=== PATIENT | male | born 1945 | race Caucasian/White ===

== ENCOUNTER 2022-06-04 00:12 | Inpatient (IN) | payer MEDICARE, BC, SELFPAY ==
[2022-06-04] VITALS (14 sets, daily range): BP systolic 97–128; BP diastolic 60–85; PULSE 53–78; RESP 12–20; TEMP 36.3–37; O2SAT 88–98; BMI 26.1; BMI 27.0
--- NOTE | 2022-06-04 00:27 | CRLHL7_ITS ---
For Patients: As a result of the Century Cures Act, medical imaging exams and procedure reports are released immediately into your electronic medical record. You may view this report before your referring provider. If you have questions, please contact your health care provider. INDICATION: Right lower quadrant pain TECHNIQUE: CT Abdomen and pelvis with i.v. contrast. Coronal and sagittal reformats were obtained. CONTRAST: 86 mL Isovue 370 COMPARISON: 08/01/2019, 02/25/2019 FINDINGS: Lower chest: Linear scarring in the left lower lobe is noted. Liver: Multiple liver cysts are present with the largest in the liver dome measuring 4 cm. There is an intermediate density exophytic lesion extending from the left lateral segment of the liver measuring 6.7 x 4.8 cm without interval change. This is better assessed by prior MRI 10/08/2020. Spleen: Unremarkable. Pancreas: Pancreatic ductal dilatation measuring 7 mm is noted without significant interval change. Gallbladder: Previous cholecystectomy noted with mild intra and extrahepatic biliary ductal dilatation seen. Kidney: There is a nonobstructing stone present in the lower pole of the right kidney measuring 11 mm. A cyst is present in the left renal upper pole measuring 1.3 cm. Adrenal: Unremarkable. Bowel: The patient is status post ileocecectomy. A fluid filled and patulous small bowel anastomosis seen in the right lower quadrant. Fluid-filled dilated small bowel loops is seen in the right lower quadrant measuring up to 3.8 cm in diameter. Vascular: Unremarkable. Lymph: Unremarkable. Peritoneum: Unremarkable. No pneumoperitoneum is seen. No significant ascites is noted. Pelvis: Mild enlargement of the prostate is present. Soft tissue: Unremarkable. Bone: Unremarkable for age. IMPRESSION: 1. Fluid-filled dilated small bowel loops is seen in the right lower quadrant measuring up to 3.8 cm in diameter. The appearance is similar to prior examination and may be due to ileus or partial small bowel obstruction. Dictated by Israel Stoner MD @ 06/04/2022 1:25:42 AM Please note that all CT scans at this facility use dose modulation, iterative reconstruction, and/or weight-based dosing when appropriate to reduce radiation dose to as low as reasonably achievable. Dictated by: Israel Stoner MD @ 06/04/2022 01:26:12 (Electronically Signed)
[2022-06-04] MEDS: diphenhydrAMINE 50 MG/ML inj 25 MG IVP (00:35)
[2022-06-04] MEDS: ONDANSETRON 2 MG/ML inj 4 MG IVP (00:37)
[2022-06-04] MEDS: HYDROmorphone 0.5 mg/0.5 ml inj IVP ×4 (00:39→05:08)
[2022-06-04 00:41] LABS: Creatinine, Point-of-Care* 1.4 mg/dl (0.6-1.3)
[2022-06-04 00:41] LABS: Lactate* 1.2 mmol/L (0.5-1.9)
[2022-06-04 00:42] LABS: Basophils Absolute Auto 0.02 K/uL (0.00-0.30); Basophils Percent Auto 0.3 % (0.0-3.0); Eosinophils Absolute Auto 0.16 K/uL (0.00-0.50); Eosinophils Percent Auto 2.3 % (0.0-7.0); Hematocrit 41.1 % (37.0-53.0); Hemoglobin* 14.4 gm/dL (13.5-17.5); Immature Granulocytes Abs Auto 0.01 K/uL (0.00-0.30); Immature Granulocytes Pct Auto 0.1 %; Lymphocytes Percent Auto 18.3 % (20-44); Mean Corpuscular HGB Conc 35 gm/dL (32-36); Mean Corpuscular Hemoglobin 34 pg (26-34); Mean Corpuscular Volume 96 fL (80-100); Monocytes Percent Auto 10.3 % (0.0-11.0); Neutrophils Absolute Auto 4.87 K/uL (1.7-7.0); Neutrophils Percent Auto 68.7 % (42.0-72.0); Platelet Count* 209 K/uL (140-440); RDW Coefficient of Variation % 12.3 % (11.5-15.5); Red Blood Count 4.28 m/uL (4.30-5.90); White Blood Count* 7.09 K/uL (4.50-11.00)
--- NOTE | 2022-06-04 00:42 | ED.GENADULT ---
HPI - General Adult General Date Seen: 06/04/22 Chief complaint: Abdominal Pain Stated complaint: small bowel obstruction rt side Time Seen by Provider: 06/04/22 00:15 Source: patient Mode of arrival: ambulatory Limitations: no limitations History of Present Illness HPI narrative: Patient is a 76-year-old male with underlying Crohn's disease with a history of bowel resection as well as surgery in 2015 for resection of adhesions. He presents for evaluation of sudden onset of right lower quadrant pain a couple of hours prior to presentation. He says that this feels exactly like all of his prior bowel obstructions which he says he has had too many to count. He does note that since 2014 he does not think that he has had any that have required admission, he says he is usually able to manage them at home with oral narcotics. However, tonight he says he took 7.5 mg of hydrocodone and it did not help. He has not had any vomiting. He denies urinary symptoms, fever, diarrhea, bloody stools. Related Data Home Medications Medication Instructions Recorded Confirmed duloxetine 20 mg capsule,delayed 20 mg PO DAILY 06/04/22 06/04/22 release finasteride 5 mg tablet 5 mg PO DAILY 06/04/22 06/04/22 gabapentin 300 mg capsule 300 mg PO DIRECTED 06/04/22 06/04/22 lisinopril 10 mg tablet 10 mg PO DAILY 06/04/22 06/04/22 tamsulosin 0.4 mg capsule 0.8 mg PO DAILY 06/04/22 06/04/22 Allergies Allergy/AdvReac Type Severity Reaction Status Date / Time No Known Drug Allergies Allergy Verified 06/04/22 00:18 Review of Systems Status of ROS: Reports: 6 or more systems reviewed and unremarkable except as noted in History and below [facility] Medical History (Updated 06/04/22 @ 01:49 by Arleth Fierro MD) Cervical myelopathy ?G95.9 - Disease of spinal cord, unspecified (ICD-10) Crohn's disease of jejunum ?K50.00 - Crohn's disease of small intestine without complications (ICD-10) Essential hypertension ?I10 - Essential (primary) hypertension (ICD-10) Foraminal stenosis of lumbar region ?M48.061 - Spinal stenosis, lumbar region without neurogenic claudication (ICD-10) Insomnia ?G47.00 - Insomnia, unspecified (ICD-10) Kidney stone ?N20.0 - Calculus of kidney (ICD-10) Lumbar facet arthropathy ?M47.816 - Spondylosis without myelopathy or radiculopathy, lumbar region (ICD-10) Neuropathy of lower extremity ?G57.90 - Unspecified mononeuropathy of unspecified lower limb (ICD-10) Neuropathy, peripheral ?G62.9 - Polyneuropathy, unspecified (ICD-10) SBO (small bowel obstruction) ?K56.609 - Unspecified intestinal obstruction, unspecified as to partial versus complete obstruction (ICD-10) Spinal stenosis in cervical region ?M48.02 - Spinal stenosis, cervical region (ICD-10) Stroke ?I63.9 - Cerebral infarction, unspecified (ICD-10) Supraglottic edema ?J38.4 - Edema of larynx (ICD-10) Vitamin D deficiency ?E55.9 - Vitamin D deficiency, unspecified (ICD-10) Surgical History History of bowel resection ?Z90.49 - Acquired absence of other specified parts of digestive tract (ICD-10) History of colonoscopy ?Z98.890 - Other specified postprocedural states (ICD-10) History of exploratory laparotomy ?Z98.890 - Other specified postprocedural states (ICD-10) History of foot surgery ?Z98.890 - Other specified postprocedural states (ICD-10) History of knee surgery ?Z98.890 - Other specified postprocedural states (ICD-10) History of laparoscopic cholecystectomy ?Z90.49 - Acquired absence of other specified parts of digestive tract (ICD-10) History of lithotripsy ?Z98.890 - Other specified postprocedural states (ICD-10) History of spinal surgery ?Z98.890 - Other specified postprocedural states (ICD-10) Social History Smoking Status: Never smoker Second hand tobacco smoke exposure: No How often do you have a drink containing alcohol: never How often do you have six or more drinks on one occasion: Never AUDIT-C Alcohol total score: 0 Non-prescribed substance use: denies use Exam Narrative: Exam Narrative: Vital signs as noted above. In general, an alert, Nontoxic male. He is holding his right lower quadrant. Head: Normocephalic, atraumatic. Eyes: Pupils are equal reactive. Extraocular movements are full. Conjunctivae are normal. ENT: Mucous membranes are moist. Neck: Supple without lymphadenopathy. Heart: Regular rate and rhythm. No murmur or rub. Lungs: Clear bilaterally. No increased work of breathing, crackles or wheezes. Abdomen: Soft and Nondistended. He has tenderness in the right lower quadrant without rebound guarding or rigidity. Extremities: Well perfused. No edema. No calf tenderness. Pulses intact. Neurologic: Patient is alert and oriented to person and place. Speech is fluent. Face is symmetric. Moves all extremities equally. Affect: Normal. Skin: Warm and dry. Well perfused. Const: Vital Signs, click to edit/add: Vital Signs - 24 hr 06/04/22 00:18 06/04/22 00:15 06/04/22 01:12 Temperature 97.3 F L Pulse Rate 53 L Pulse Rate [Pulse Oximeter] 78 Respiratory Rate 20 16 Blood Pressure 126/79 Blood Pressure [Ri ght Upper Arm] 97/60 Pulse Oximetry 98 96 95 Oxygen Delivery Me thod Room Air 06/04/22 01:47 06/04/22 01:14 06/04/22 01:31 Temperature 98.0 F Pulse Rate 66 72 Pulse Rate [Pulse Oximeter] 77 Respiratory Rate 16 16 16 Blood Pressure 122/78 124/77 Blood Pressure [Ri ght Upper Arm] 124/77 Pulse Oximetry 88 94 88 Oxygen Delivery Me thod Room Air Documenting provider has reviewed patient's vital signs: yes Course Course Hospital Course: Given his stated history, will place an IV in just order a CT scan to evaluate. Labs are pending at this time. Looking through his records, last time he was here he received Dilaudid as well as Benadryl because he apparently gets a rash. I have ordered 0.5 mg of Dilaudid as well as Benadryl and a L of normal saline. He did require an additional 0.5 mg of Dilaudid for pain control. CT scan by my review showed some dilated, fluid-filled small bowel loops particularly in the right lower quadrant as well as air-fluid levels. Radiology reads this as ileus or partial small-bowel obstruction. Labs are pretty unremarkable. White blood cell count is normal at 7, hemoglobin is 14.4. Electrolytes are normal, creatinine is 1.1, lactate is 1.2, LFTs are normal. He does have an elevated lipase of 76, looking back through his records his lipase is often elevated with bowel obstruction. COVID is negative. Plan at this point is admission for pain control and bowel rest overnight, he is hoping that he can go home tomorrow If symptoms are improved. Vital Signs Vital signs: Initial Vital Signs Pulse Oximetry 96 06/04/22 00:15 Vital Signs Pulse Oximetry 96 06/04/22 00:15 Temperature 98.0 F 06/04/22 01:47 Pulse Rate 77 06/04/22 01:47 Respiratory Rate 16 06/04/22 01:47 Blood Pressure 124/77 06/04/22 01:47 Pulse Oximetry 88 06/04/22 01:47 Oxygen Delivery Method Room Air 06/04/22 01:47 Medical Decision Making Lab Data Labs: Lab Results 06/04/22 06/04/22 06/04/22 Range/Units 00:03 00:40 00:45 WBC 7.09 (4.50-11.00) K/uL RBC 4.28 L (4.30-5.90) m/uL Hgb 14.4 (13.5-17.5) gm/dL Hct 41.1 (37.0-53.0) % MCV 96 (80-100) fL MCH 34 (26-34) pg MCHC 35 (32-36) gm/dL RDW Coeff of Enrique 12.3 (11.5-15.5) % Plt Count 209 (140-440) K/uL Neut % (Auto) 68.7 (42.0-72.0) % Lymph % (Auto) 18.3 L (20-44) % [place] % (Auto) 10.3 (0.0-11.0) % Eos % (Auto) 2.3 (0.0-7.0) % Baso % (Auto) 0.3 (0.0-3.0) % Neut # (Auto) 4.87 (1.7-7.0) K/uL Lymph # (Auto) 1.30 (0.90-2.90) K/uL [place] # (Auto) 0.70 (0.00-0.90) K/UL Eos # (Auto) 0.16 (0.00-0.50) K/uL Baso # (Auto) 0.02 (0.00-0.30) K/uL Sodium 136 (135-149) mmol/L Potassium 4.2 (3.6-5.1) mmol/L Chloride 103 (96-114) mmol/L Carbon Dioxide 25 (20-32) mmol/L BUN 23 (7-30) mg/dL Creatinine 1.1 (0.5-1.5) mg/dL Estimated Creat Clear 57.13 Estimated GFR 70 ml/min Glucose 104 (60-115) mg/dL Lactate 1.2 (0.5-1.9) mmol/L Calcium 9.0 (8.4-10.6) mg/dL Total Bilirubin 0.8 (0.1-1.5) mg/dL Direct Bilirubin 0.3 (0.0-0.5) mg/dL AST 29 (12-35) U/L ALT 26 (4-50) U/L Alkaline Phosphatase 80 (40-150) U/L C-Reactive Protein 0.5 (0.5-1.0) mg/dL Total Protein 7.0 (6.0-8.3) g/dL Albumin 4.5 (3.3-5.0) g/dL Lipase 786 H (23-300) U/L SARS-CoV-2 (PCR) Negative SARS-CoV-2 (Negative) POC Creatinine 1.4 H (0.6-1.3) mg/dl Discharge Plan Discharge Clinical Impression: Crohn's disease, Bowel obstruction Patient Disposition: Admitted As Inpatient Condition: Improved
[2022-06-04 00:47] LABS: Slide Review Reflex No
[2022-06-04 00:58] LABS: Albumin* 4.5 g/dL (3.3-5.0); Chloride* 103 mmol/L (96-114); Sodium* 136 mmol/L (135-149)
[2022-06-04 00:59] LABS: Potassium* 4.2 mmol/L (3.6-5.1)
[2022-06-04 01:00] LABS: Creatinine* 1.1 mg/dL (0.5-1.5); Est. Creatinine Clearance* 57.13; Estimated Glomerular Filt Rate 70 ml/min
[2022-06-04 01:01] LABS: Alkaline Phosphatase* 80 U/L (40-150); Aspartate Amino Transferase* 29 U/L (12-35); Bilirubin Direct* 0.3 mg/dL (0.0-0.5); Bilirubin Total* 0.8 mg/dL (0.1-1.5); Blood Urea Nitrogen* 23 mg/dL (7-30); Carbon Dioxide* 25 mmol/L (20-32)
[2022-06-04 01:02] LABS: Alanine Aminotransferase* 26 U/L (4-50); Glucose* 104 mg/dL (60-115); Lipase* 786 U/L (23-300)
[2022-06-04 01:04] LABS: C Reactive Protein* 0.5 mg/dL (0.5-1.0)
[2022-06-04] MEDS: 0.9 % SODIUM CHLORIDE 1000 ml 1,000 ML IV (01:07)
[2022-06-04 01:24] LABS: SARS PCR* Negative SARS-CoV-2 (Negative)
--- NOTE | 2022-06-04 03:06 | P.IMCN_ITS ---
Date of Consult Consult date: 06/04/22 Primary Care Provider: Hemal Hayward MD Consult Narrative Narrative: [facility] Hospitalist ADMISSION SUPPORT NOTE eHospitalist was contacted by Dr. Fierro with request of admission support. Chief complaint: Abdominal pain HPI: The patient presents with abdominal pain that started around 7 PM the evening. It felt like the typical pain he would have when he has had bowel obstruction in the past. He took a hydrocodone which she reports usually helps but his pain continues to worsen and was severe in intensity on arrival. He reports that the pain is mainly in the right upper abdomen under his rib cage, is crampy in nature and sometimes is in the epigastric region. He denies any nausea and vomiting. Pain is currently 1-2/10 intensity Home Medications: Reviewed see EMR for details Pertinent Medical History: Crohn's disease, hypertension, insomnia, neuropathy, bowel resection, please see EMR for details regarding past surgical history Review of Systems Status of ROS: Reports: 10 or more systems reviewed and unremarkable except as noted in History and below [facility] Medical History (Updated 06/04/22 @ 01:49 by Arleth Fierro MD) Cervical myelopathy ?G95.9 - Disease of spinal cord, unspecified (ICD-10) Crohn's disease of jejunum ?K50.00 - Crohn's disease of small intestine without complications (ICD-10) Essential hypertension ?I10 - Essential (primary) hypertension (ICD-10) Foraminal stenosis of lumbar region ?M48.061 - Spinal stenosis, lumbar region without neurogenic claudication (ICD-10) Insomnia ?G47.00 - Insomnia, unspecified (ICD-10) Kidney stone ?N20.0 - Calculus of kidney (ICD-10) Lumbar facet arthropathy ?M47.816 - Spondylosis without myelopathy or radiculopathy, lumbar region (ICD-10) Neuropathy of lower extremity ?G57.90 - Unspecified mononeuropathy of unspecified lower limb (ICD-10) Neuropathy, peripheral ?G62.9 - Polyneuropathy, unspecified (ICD-10) SBO (small bowel obstruction) ?K56.609 - Unspecified intestinal obstruction, unspecified as to partial versus complete obstruction (ICD-10) Spinal stenosis in cervical region ?M48.02 - Spinal stenosis, cervical region (ICD-10) Stroke ?I63.9 - Cerebral infarction, unspecified (ICD-10) Supraglottic edema ?J38.4 - Edema of larynx (ICD-10) Vitamin D deficiency ?E55.9 - Vitamin D deficiency, unspecified (ICD-10) Surgical History History of bowel resection ?Z90.49 - Acquired absence of other specified parts of digestive tract (ICD- 10) History of colonoscopy ?Z98.890 - Other specified postprocedural states (ICD-10) History of exploratory laparotomy ?Z98.890 - Other specified postprocedural states (ICD-10) History of foot surgery ?Z98.890 - Other specified postprocedural states (ICD-10) History of knee surgery ?Z98.890 - Other specified postprocedural states (ICD-10) History of laparoscopic cholecystectomy ?Z90.49 - Acquired absence of other specified parts of digestive tract (ICD- 10) History of lithotripsy ?Z98.890 - Other specified postprocedural states (ICD-10) History of spinal surgery ?Z98.890 - Other specified postprocedural states (ICD-10) Social History Smoking Status: Never smoker Second hand tobacco smoke exposure: No How often do you have a drink containing alcohol: never How often do you have six or more drinks on one occasion: Never AUDIT-C Alcohol total score: 0 Non-prescribed substance use: denies use Meds Home Medications and Allergies Home Medications Medication Instructions Recorded Confirmed Type duloxetine 20 mg capsule,delayed 20 mg PO DAILY 06/04/22 06/04/22 History release finasteride 5 mg tablet 5 mg PO DAILY 06/04/22 06/04/22 History gabapentin 300 mg capsule 300 mg PO DIRECTED 06/04/22 06/04/22 History lisinopril 10 mg tablet 10 mg PO DAILY 06/04/22 06/04/22 History tamsulosin 0.4 mg capsule 0.8 mg PO DAILY 06/04/22 06/04/22 History Allergies Allergy/AdvReac Type Severity Reaction Status Date / Time No Known Drug Allergies Allergy Verified 06/04/22 00:18 Exam Narrative: Exam Narrative: Pertinent Social History: Denies history of smoking or drugs of abuse or alcohol Exam (performed via interactive video with assistance of bedside nurse): General: Alert, cooperative, no acute distress HEENT: Oral mucosa pink and moist without erythema Lungs: Clear to auscultation bilaterally without crackle or wheeze CV: Regular rate and rhythm without loud murmur rub or gallop Abd: Bowel sounds absent, does exhibit with pain in right upper quadrant and epigastric region with palpation done by bedside nurse, soft Ext: No pitting edema noted Skin: No rashes, bruises or lesions appreciated on gross visualization of exposed skin Neuro: Alert, oriented x 3. CN III -VII, XI, XII grossly intact, moves all extremities without any significant focal deficit appreciated by nurse Const: Vital Signs, click to edit/add: Vital Signs - 24 hr 06/04/22 00:18 06/04/22 00:15 06/04/22 01:12 Temperature 97.3 F L Pulse Rate 53 L Pulse Rate [Pulse Oximeter] 78 Respiratory Rate 20 16 Blood Pressure 126/79 Blood Pressure [Ri ght Upper Arm] 97/60 Pulse Oximetry 98 96 95 Oxygen Delivery Me thod Room Air 06/04/22 01:47 06/04/22 01:14 06/04/22 01:31 Temperature 98.0 F Pulse Rate 66 72 Pulse Rate [Pulse Oximeter] 77 Respiratory Rate 16 16 16 Blood Pressure 122/78 124/77 Blood Pressure [Ri ght Upper Arm] 124/77 Pulse Oximetry 88 94 88 Oxygen Delivery Me thod Room Air 06/04/22 02:02 06/04/22 02:10 Temperature 98.1 F 98.1 F Pulse Rate 69 Pulse Rate [Pulse Oximeter] 77 Respiratory Rate 16 16 Blood Pressure 128/85 Blood Pressure [Ri ght Upper Arm] 124/77 Pulse Oximetry 92 Oxygen Delivery Me thod Labs Labs: Short CBC 06/04/22 Range/Units 00:03 WBC 7.09 (4.50-11.00) K/uL Hgb 14.4 (13.5-17.5) gm/dL Hct 41.1 (37.0-53.0) % Plt Count 209 (140-440) K/uL BMP 06/04/22 00:03 Sodium 136 Potassium 4.2 Chloride 103 Carbon Dioxide 25 BUN 23 Creatinine 1.1 Glucose 104 Calcium 9.0 Liver Function 06/04/22 Range/Units 00:03 Total Bilirubin 0.8 (0.1-1.5) mg/dL Direct Bilirubin 0.3 (0.0-0.5) mg/dL AST 29 (12-35) U/L ALT 26 (4-50) U/L Alkaline Phosphatase 80 (40-150) U/L Albumin 4.5 (3.3-5.0) g/dL Assessment and Plan Assessment and plan (1) Crohn's disease: Status: Acute (2) Bowel obstruction: Status: Acute Plan Recent lab/CT scan of abdomen and pelvis: Reviewed see EMR for details Assessment and Plan: 1. Abdominal pain-related to ileus versus partial small bowel obstruction. Supportive care. Keep NPO. IV fluids. Pain control with Dilaudid 2. Mild pancreatitis-with epigastric pain and elevated lipase. Continue to trend 3. BPH-continue finasteride and Flomax 4. Hypertension-stable on lisinopril 5. Neuropathy-stable on gabapentin and Cymbalta 6. DVT prophylaxis-Lovenox 7. CODE STATUS full code discussed with patient Chart review was performed as well as evaluation of the patient via video. Thank you for involving ehospitalist. Please contact [phone] if further assistance is needed.
[2022-06-04 05:07] LABS: Appearance Urine Clear (Clear); Bilirubin Urine Negative (Negative); Blood Urine Negative (Negative); Color Urine Yellow (Yellow); Glucose Urine Negative (Negative); Ketones Urine Negative (Negative); Leukocyte Esterase Urine Negative (Negative); Nitrite Urine Negative (Negative); Protein Urine Negative (Negative); Specific Gravity Urine 1.015 (1.000-1.030); Urobilinogen Urine 0.2 (0.2-1.0)
[2022-06-04] MEDS: 0.9 % SODIUM CHLORIDE 1000 ml 1,000 ML 125 ML IV (05:09)
[2022-06-04 05:14] LABS: RBC Urine 0-2 (0-2); Squamous Epithelial Cell Urine Few (None-Few); WBC Urine 0-2 (0-5)
--- NOTE | 2022-06-04 08:02 | PC.NURSE ---
Pt alert and oriented x3. Afebrile. Pt reports 10/10 sharp pain in abdomen that comes and goes, pain managed with PRN medications. Pt denies chest pain, SOB, and N/V. Pt is up Ind in room tolerating a NPO diet, voiding. Pt slept throughout most of night after arriving on unit at 0215. ??
[2022-06-04] MEDS: FINASTERIDE 5 MG TABLET PO (09:00)
[2022-06-04] MEDS: DULOXETINE HCL 20 MG CAPSULE DR PO (09:00)
[2022-06-04] MEDS: TAMSULOSIN HCL 0.4 MG CAPSULE 0.8 MG PO (09:01)
[2022-06-04] MEDS: lisinopriL 10 MG TABLET PO (09:01)
[2022-06-04] MEDS: GABAPENTIN 300 MG CAPSULE 600 MG PO ×3 (09:01→21:18)
[2022-06-04] MEDS: SODIUM CHLORIDE 0.9 % (FLUSH) 10 ML SYRINGE 5 ML IVF ×2 (09:04→21:20)
--- NOTE | 2022-06-04 11:34 | P.IMHP_ITS ---
Hospitalist- H&P: HPI History of Present Illness Date Seen: 06/04/22 Chief complaint: small bowel obstruction rt side Narrative: Osman Murray is a 76 year old male who presented to the emergency room last night for an acute onset of right lower quadrant abdominal cramping. He has a history of bowel obstructions, symptoms consistent with this. He had an apple with the skin on yesterday, which may have been a trigger. No vomiting, no other symptoms. Took an oxycodone at home without relief (typically, he can manage SBOs at home with oral pain medications and a bland diet). ER course and findings: - mildly elevated lipase at 786, normal lactate, CBC - partial SBO noted on CT A/B Patient admitted by ANGELINA -hospitalist overnight. This morning, his pain has improved. He feels like he will be able to pass flatus today. History updated below. Notably, Omsan was diagnosed with Crohn disease in the 1970s, underwent a partial small-bowel resection in 1971. He then remained fairly stable until approximately 2013, at which time he had multiple SBOs. He had surgery again in 2014 with lysis of adhesions and partial segmented small-bowel resection; notably pathology did not exhibit active Crohn's disease at that time. Patient is not currently immunosuppressed. PCP is Dr. Hayward locally. Review of Systems Status of ROS: Reports: 10 or more systems reviewed and unremarkable except as noted in History and below [facility] Medical History (Updated 06/04/22 @ 13:42 by Noreen Burrows MD) Cervical myelopathy ?G95.9 - Disease of spinal cord, unspecified (ICD-10) Crohn's disease of jejunum ?K50.00 - Crohn's disease of small intestine without complications (ICD-10) Essential hypertension ?I10 - Essential (primary) hypertension (ICD-10) Foraminal stenosis of lumbar region ?M48.061 - Spinal stenosis, lumbar region without neurogenic claudication (ICD-10) Insomnia ?G47.00 - Insomnia, unspecified (ICD-10) Kidney stone ?N20.0 - Calculus of kidney (ICD-10) Lumbar facet arthropathy ?M47.816 - Spondylosis without myelopathy or radiculopathy, lumbar region (ICD-10) Neuropathy of lower extremity ?G57.90 - Unspecified mononeuropathy of unspecified lower limb (ICD-10) Neuropathy, peripheral ?G62.9 - Polyneuropathy, unspecified (ICD-10) SBO (small bowel obstruction) ?K56.609 - Unspecified intestinal obstruction, unspecified as to partial versus complete obstruction (ICD-10) Spinal stenosis in cervical region ?M48.02 - Spinal stenosis, cervical region (ICD-10) Stroke ?I63.9 - Cerebral infarction, unspecified (ICD-10) Supraglottic edema ?J38.4 - Edema of larynx (ICD-10) Vitamin D deficiency ?E55.9 - Vitamin D deficiency, unspecified (ICD-10) Surgical History History of bowel resection ?Z90.49 - Acquired absence of other specified parts of digestive tract (ICD- 10) History of colonoscopy ?Z98.890 - Other specified postprocedural states (ICD-10) History of exploratory laparotomy ?Z98.890 - Other specified postprocedural states (ICD-10) History of foot surgery ?Z98.890 - Other specified postprocedural states (ICD-10) History of knee surgery ?Z98.890 - Other specified postprocedural states (ICD-10) History of laparoscopic cholecystectomy ?Z90.49 - Acquired absence of other specified parts of digestive tract (ICD- 10) History of lithotripsy ?Z98.890 - Other specified postprocedural states (ICD-10) History of spinal surgery ?Z98.890 - Other specified postprocedural states (ICD-10) Social History (Updated 06/04/22 @ 11:37 by Noreen Burrows MD) Narrative: Lives with Debi (medical decision maker if needed) on [address]. 3 adult children, 9 granddaughters. Retired (used car sales), mows at golf course now. Occasional cigar, rare ETOH use. Full Code status. Smoking Status: Light tobacco smoker What tobacco products do you use: cigars Do you use any of these nicotine containing products: None Second hand tobacco smoke exposure: No How often do you have a drink containing alcohol: monthly or less Alcohol type: beer How often do you have six or more drinks on one occasion: Never AUDIT-C Alcohol total score: 1 Non-prescribed substance use: denies use Caffeine: Yes (coffee) service: No Meds Home Medications and Allergies Home Medications Medication Instructions Recorded Confirmed Type cholestyramine (with sugar) 4 gram 1 ea PO BID 06/04/22 06/04/22 History powder for susp in a packet duloxetine 20 mg capsule,delayed 60 mg PO DAILY 06/04/22 06/04/22 History release finasteride 5 mg tablet 5 mg PO DAILY 06/04/22 06/04/22 History gabapentin 300 mg capsule 600 mg PO TID 06/04/22 06/04/22 History lisinopril 10 mg tablet 10 mg PO DAILY 06/04/22 06/04/22 History tamsulosin 0.4 mg capsule 0.8 mg PO DAILY 06/04/22 06/04/22 History Allergies Allergy/AdvReac Type Severity Reaction Status Date / Time No Known Drug Allergies Allergy Verified 06/04/22 00:18 Exam Narrative: Exam Narrative: GEN: Alert and oriented, sitting comfortably in bed and answering questions appropriately HEENT: Normal external ears, EOMIs bilaterally, no scleral icterus CV: RRR, No concerning murmurs, rubs, or gallops R: LCTA bilaterally without concerning wheezing, rales, or rhonchi Ab: Soft, no significant distension, tolerates palpation. Bowel sounds hypoactive Ext: wwp, no concerning edema Skin: No concerning skin lesions or rashes on exposed skin Neuro: Nonfocal Psych: Appropriate Const: Vital Signs, click to edit/add: Vital Signs - 24 hr 06/04/22 00:18 06/04/22 00:15 06/04/22 01:12 Temperature 97.3 F L Pulse Rate 53 L Pulse Rate [Pulse Oximeter] 78 Respiratory Rate 20 16 Blood Pressure 126/79 Blood Pressure [Le ft Arm] Blood Pressure [Ri ght Upper Arm] 97/60 Pulse Oximetry 98 96 95 Oxygen Delivery Me thod Room Air 06/04/22 01:47 06/04/22 01:14 06/04/22 01:31 Temperature 98.0 F Pulse Rate 66 72 Pulse Rate [Pulse Oximeter] 77 Respiratory Rate 16 16 16 Blood Pressure 122/78 124/77 Blood Pressure [Le ft Arm] Blood Pressure [Ri ght Upper Arm] 124/77 Pulse Oximetry 88 94 88 Oxygen Delivery Me thod Room Air 06/04/22 02:02 06/04/22 02:10 06/04/22 02:15 Temperature 98.1 F 98.1 F 97.6 F Pulse Rate 69 Pulse Rate [Pulse Oximeter] 77 69 Respiratory Rate 16 16 18 Blood Pressure 128/85 Blood Pressure [Le ft Arm] 123/76 Blood Pressure [Ri ght Upper Arm] 124/77 Pulse Oximetry 92 96 Oxygen Delivery Me thod Room Air 06/04/22 02:15 06/04/22 07:00 06/04/22 07:00 Temperature 98.6 F Pulse Rate Pulse Rate [Pulse Oximeter] 69 69 Respiratory Rate 16 12 12 Blood Pressure Blood Pressure [Le ft Arm] 112/72 Blood Pressure [Ri ght Upper Arm] Pulse Oximetry 96 93 Oxygen Delivery Me thod Room Air Room Air Hospitalist - H&P: Result Labs Labs: Short CBC 06/04/22 Range/Units 00:03 WBC 7.09 (4.50-11.00) K/uL Hgb 14.4 (13.5-17.5) gm/dL Hct 41.1 (37.0-53.0) % Plt Count 209 (140-440) K/uL BMP 06/04/22 00:03 Sodium 136 Potassium 4.2 Chloride 103 Carbon Dioxide 25 BUN 23 Creatinine 1.1 Glucose 104 Calcium 9.0 Liver Function 06/04/22 Range/Units 00:03 Total Bilirubin 0.8 (0.1-1.5) mg/dL Direct Bilirubin 0.3 (0.0-0.5) mg/dL AST 29 (12-35) U/L ALT 26 (4-50) U/L Alkaline Phosphatase 80 (40-150) U/L Albumin 4.5 (3.3-5.0) g/dL Urine 06/04/22 Range/Units 04:55 Urine Color Yellow (Yellow) Urine Appearance Clear (Clear) Urine pH 5.0 (5.0-8.5) Ur Specific [place] 1.015 (1.000-1.030) Urine Protein Negative (Negative) Urine Glucose (UA) Negative (Negative) Assessment and Plan Assessment and plan (1) Bowel obstruction: Problem comment: - history of SBOs - NPO, slowly advance diet when + GI motility Status: Acute (2) Crohn's disease: Problem comment: - history of this, no active disease on 2015 pathology - no concern for active disease at this time Status: Acute (3) Elevated lipase: Problem comment: - no signs of pancreatitis on imaging - NPO for now, ADAT when stable Status: Acute Plan - await bowel function, ADAT - add back in home medications - SCDs and ambulation for ppx - Full Code status - home with when medically stable, likely 1-2 days
[2022-06-04] MEDS: ENOXAPARIN 40 MG/0.4 ML INJ SUBCUT (21:17)
[2022-06-04] MEDS: DULOXETINE HCL 20 MG CAPSULE DR 40 MG PO (21:53)
[2022-06-05] MEDS: ACETAMINOPHEN 325 MG TABLET 650 MG PO ×2 (01:53→07:51)
--- NOTE | 2022-06-05 06:26 | PC.NURSE ---
END OF SHIFT NOTE: PT PLEASANT AND COOPERATIVE. A&O x4. PT DENIES CP, SOB, N/V. AMBULATES INDEPENDENTLY. VSS ON RA; AFEBRILE. PT C/O ?SINUS HEADACHE? / PAIN WITH RELIEF FROM ADMINISTRATION OF PRN TYLENOL. CALL LIGHT WITHIN PT?S REACH.
[2022-06-05 06:49] LABS: Basophils Absolute Auto 0.02 K/uL (0.00-0.30); Basophils Percent Auto 0.4 % (0.0-3.0); Eosinophils Absolute Auto 0.12 K/uL (0.00-0.50); Eosinophils Percent Auto 2.4 % (0.0-7.0); Hemoglobin* 13.3 gm/dL (13.5-17.5); Immature Granulocytes Abs Auto 0.01 K/uL (0.00-0.30); Immature Granulocytes Pct Auto 0.2 %; Lymphocytes Percent Auto 20.2 % (20-44); Mean Corpuscular HGB Conc 34 gm/dL (32-36); Mean Corpuscular Hemoglobin 33 pg (26-34); Mean Corpuscular Volume 98 fL (80-100); Neutrophils Percent Auto 62.8 % (42.0-72.0); Platelet Count* 176 K/uL (140-440); RDW Coefficient of Variation % 12.3 % (11.5-15.5); White Blood Count* 4.94 K/uL (4.50-11.00)
[2022-06-05 07:00] VITALS: BP 130/72; PULSE 65; RESP 16; TEMP 36.6; O2SAT 95
[2022-06-05 07:06] LABS: Albumin* 3.9 g/dL (3.3-5.0)
[2022-06-05 07:07] LABS: Chloride* 103 mmol/L (96-114); Potassium* 4.4 mmol/L (3.6-5.1); Sodium* 137 mmol/L (135-149)
[2022-06-05 07:09] LABS: Aspartate Amino Transferase* 44 U/L (12-35); Bilirubin Total* 1.4 mg/dL (0.1-1.5); Carbon Dioxide* 31 mmol/L (20-32); Creatinine* 1.1 mg/dL (0.5-1.5); Est. Creatinine Clearance* 57.13; Estimated Glomerular Filt Rate 70 ml/min; Total Protein* 6.2 g/dL (6.0-8.3)
[2022-06-05 07:10] LABS: Alanine Aminotransferase* 55 U/L (4-50); Alkaline Phosphatase* 89 U/L (40-150); Blood Urea Nitrogen* 16 mg/dL (7-30); Calcium* 8.6 mg/dL (8.4-10.6); Glucose* 95 mg/dL (60-115)
[2022-06-05 07:34] LABS: Slide Review Reflex No
[2022-06-05] MEDS: lisinopriL 10 MG TABLET PO (07:50)
[2022-06-05] MEDS: TAMSULOSIN HCL 0.4 MG CAPSULE 0.8 MG PO (07:51)
[2022-06-05] MEDS: GABAPENTIN 300 MG CAPSULE 600 MG PO (07:52)
[2022-06-05] MEDS: FINASTERIDE 5 MG TABLET PO (07:52)
--- NOTE | 2022-06-05 08:00 | PM.DS1 ---
DS: Providers Provider Date Seen: 06/05/22 Date of admission: 06/04/22 09:43 Primary care physician: Hemal Hayward MD Admitting Clinician: Kadeem Valdes MD Attending Physician on discharge: Noreen Burrows MD Date of Discharge: 06/05/22 DS: Diagnosis Discharge Diagnosis (1) Bowel obstruction: Status: Acute Problem details: - history of SBOs - advanced diet well and ready for discharge on hospital day 1 (2) Crohn's disease: Status: Acute Problem details: - history of this, no active disease on 2014 pathology - no concern for active disease at this time (3) Elevated lipase: Status: Acute Problem details: - no signs of pancreatitis on imaging - advanced diet without any pain DS: Summary Hospital Course Hospital Course: 76-year-old man with history of SBOs, previous abdominal surgery, history of Crohn's disease (not currently under treatment or immunosuppressed), presented to the hospital with abdominal pain concerning for recurrent SBO on 06/04. Imaging in the emergency room confirmed this. He was admitted to the hospital, treated with pain medication and NPO status, was able to advance diet throughout hospital stay and felt back to baseline on 06/05. No changes made to home medications, routine PCP follow-up. Discussed return precautions, patient verbalized understanding of plan. Status at Discharge Functional status at discharge: independent ambulation Overall status at discharge: patient is back to baseline Time Spent with Patient Time attestation: Total time spent providing and/or coordinating discharge services: Time spent: Less than 30 minutes Exam Narrative: Exam Narrative: GEN: Alert and oriented, answering questions appropriately HEENT: EOMIs bilaterally, no scleral icterus CV: RRR, No concerning murmurs, rubs, or gallops R: LCTA bilaterally without concerning wheezing Abdomen: Soft, tolerates palpation, normoactive bowel sounds Ext: wwp, no concerning edema Skin: No concerning skin lesions or rashes on exposed skin Neuro: Nonfocal Psych: Appropriate Const: Vital Signs, click to edit/add: Vital Signs - 24 hr 06/04/22 11:00 06/04/22 15:00 06/04/22 15:00 Temperature 98.2 F 98 F Pulse Rate [Pulse Oximeter] 68 73 73 Respiratory Rate 12 12 Blood Pressure [Le ft Arm] 113/74 110/65 Pulse Oximetry 92 95 Oxygen Delivery Me thod Room Air Room Air 06/04/22 19:50 06/04/22 19:50 06/04/22 23:23 Temperature 98.3 F Pulse Rate [Pulse Oximeter] 74 74 Respiratory Rate 16 16 16 Blood Pressure [Le ft Arm] 112/68 Pulse Oximetry 95 Oxygen Delivery Me thod Room Air Room Air DS: Data Data Completed and Pending Labs on day of discharge: Labs from last 24 hours 06/05/22 06:17 WBC 4.94 RBC 4.00 L Hgb 13.3 L Hct 39.0 MCV 98 MCH 33 MCHC 34 RDW Coeff of Enrique 12.3 Plt Count 176 Neut % (Auto) 62.8 Lymph % (Auto) 20.2 [facility] % (Auto) 14.0 H Eos % (Auto) 2.4 Baso % (Auto) 0.4 Neut # (Auto) 3.10 Lymph # (Auto) 1.00 [facility] # (Auto) 0.70 Eos # (Auto) 0.12 Baso # (Auto) 0.02 Sodium 137 Potassium 4.4 Chloride 103 Carbon Dioxide 31 BUN 16 Creatinine 1.1 Estimated Creat Clear 57.13 Estimated GFR 70 Glucose 95 Calcium 8.6 Total Bilirubin 1.4 AST 44 H ALT 55 H Alkaline Phosphatase 89 Total Protein 6.2 Albumin 3.9 Discharge Plan Discharge Disposition: Home, Self-Care Date of Admission: 06/04/22 09:43 Attending Provider on Discharge: Noreen Burrows Primary Care Provider: Hemal Hayward Condition: Improved Anticipated Discharge Date/Time: 06/05/22 09:00 Discharge Medications: New oxycodone 5 mg tablet 5 mg PO Q6H PRN (Reason: pain) Qty: 20 0RF Continued duloxetine 20 mg capsule,delayed release(DR/EC) 60 mg PO DAILY Patient Comments: take 3 tabs once a day by mouth gabapentin 300 mg capsule 600 mg PO TID Patient Comments: take 2 capsules three times a day and take 1 capsule at hs if needed finasteride 5 mg tablet 5 mg PO DAILY lisinopril 10 mg tablet 10 mg PO DAILY tamsulosin 0.4 mg capsule 0.8 mg PO DAILY Discontinued cholestyramine (with sugar) 4 gram powder in packet 1 ea PO BID Discharge Orders: Discharge Order (Routine); Ordered 06/05/22 Ordered By: Noreen Burrows Patient Education: Oxycodone, Rapid Release (By mouth), Bowel Obstruction (DC) Activity Level: Activity as Tolerated Discharge Diet: Regular Diet Detail: low fiber, advance as tolerated Follow Up Appointments: Hemal Hayward MD [Primary Care Provider] - (prn) Forms: [employer] Info Instructions
[2022-06-05 09:34] VITALS: BP 128/85; PULSE 69; RESP 16; TEMP 36.6
--- NOTE | 2022-06-05 10:10 | PC.NURSE ---
Pt evaluated by Dr. Burrows. AM meds provided with prn tylenol for mild c/o sinus headache. Pain secondary to SBO on right side has resolved. Pt states he is passing flatus and had another small stool this am. IV site discontinued, pt showered himself and performed ADLS w/o assistance. Tolerated 100% of regular bkfst w/o any c/o nausea. Abdomen is soft and non-tender with normoactive bowel sounds. Pt and Denisa verbalized understanding of d/c diagnosis, home meds, new RX at [facility] for oxycodone and sx of SBO to report urgently to physician. No f/up with Dr. Hayward scheduled, pt is to f/up prn. Ambulatory d/c to own home with personal belongings and Denisa as transportation.
== END 2022-06-05 10:08 | disposition home or self-care (01) | DRG 389 ==
LOC: ED 01:49 → MEDSURG 02:10
PROVIDERS: Family Medicine; Admitting Provider Internal Medicine; Emergency Provider Emergency Medicine; PCP Family Medicine; Visit Provider Internal Medicine
DX: K56.609 Unspecified intestinal obstruction, unspecified as to partial versus complete obstruction (principal); G95.9 Disease of spinal cord, unspecified; Z90.49 Acquired absence of other specified parts of digestive tract; Z87.19 Personal history of other diseases of the digestive system; I10 Essential (primary) hypertension; M48.061 Spinal stenosis, lumbar region without neurogenic claudication; G47.00 Insomnia, unspecified; G62.9 Polyneuropathy, unspecified; M48.02 Spinal stenosis, cervical region; Z86.73 Personal history of transient ischemic attack (TIA), and cerebral infarction without residual deficits; N40.0 Benign prostatic hyperplasia without lower urinary tract symptoms
CPT/HCPCS: 36415; 74177; 80048; 80053; 80076; 81001; 82565; 83605; 83690; 85025; 86140; 87635; 94761; 99284; 99285; A9270; J1170; J1200; J1650; J2405; J7030; Q9967

== ENCOUNTER 2023-04-28 07:30 | Outpatient (RCR) | payer MEDICARE, BC, SELFPAY | END 2023-04-28 08:38 | disposition home or self-care (01) | PROVIDERS: PCP Family Medicine; Visit Provider Family Medicine | DX: M47.816 Spondylosis without myelopathy or radiculopathy, lumbar region (principal); M54.50 Low back pain, unspecified; Z51.89 Encounter for other specified aftercare | CPT/HCPCS: 97110; 97140; 97162 ==

== ENCOUNTER 2023-10-03 16:02 | Emergency (ER) | payer MEDICARE, BC, SELFPAY ==
[2023-10-03 16:04] VITALS: BP 115/73; PULSE 80; RESP 16; TEMP 36.8; O2SAT 96; BMI 25.7
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
--- OUTSIDE RECORDS SUMMARY | 2023-10-03 16:28 | XMS_ITS | Data Portability ---
Author Organization [facility] Address [address] [place] [address] Care Team Providers Care Display Director Name Role Phone LILITEDENNIS Mcclure Primary Care Provider Assessment No assessment recorded. Plan of Treatment Reminders Order Date Submit Date Provider Last Modified By Organization Details Last Modified Time Details Appointments None recorded . Lab None recorded . Referral None recorded . Procedures None recorded . Surgeries None recorded . Imaging US, renal 2022 024 [email or web address] Not available 4 09:59:32 US, renal 2022 024 [email or web address] [facility], [address], [place], [address], 4 08:55:03 Medication Orders finaster mariposa 5 mg tablet [email or web address] [place] [address] [facility], [address] [place], [place], [id number], 3 11:53:08 sildenaf il 100 mg tablet 2022 023 [facility]1958, [address] [place], [place], [id number], 3 11:53:22 oxybutyn in chloride ER 10 mg tablet,e xtended release 24 hr 2022 023 [facility] #[facility]88, [address] [place], [place], [id number], 11:39:19 Patient TargetsNo targets recorded. Patient InstructionsNo instructions recorded. Reason for Referral None Reported. Results Created Date Observation Date Name Description Value Unit Range Abnormal Flag LastModifiedBy Organization Detail LastModifiedTime 08/23/19 23 08/21/2022 bladd er scan (PROC ) No observ ation record ed. Not Available 08/28/2022 13:53:43 04/21/19 24 04/21/2023 US, renal No observ ation record ed. [facility] [address], [place], [address], 06/06/2023 10:31:40 Result Notes None recorded. Procedures Surgical History Date Name Laterality Status Provider Name and Address Organization Details Recorded Time 01/22/20 Bladder Scan completed Mitch Haque MD [address] [place] [address],[address], [place], [address], [facility] 01/21/2023 11:38:02 08/22/19 23 UroCuff completed Johana Avitia null, [facility] 08/21/2022 12:44:05 08/22/19 23 Bladder Scan completed Johana Avitia null, [facility] 08/21/2022 12:42:55 05/20/19 18 Colonoscopy completed Annamarie June null, [facility] 05/22/2022 11:37:22 operation on spinal cord completed Annamarie June null, [facility] 05/22/2022 11:35:38 Cholecystectomy completed Annamarie June null, [facility] 05/22/2022 11:35:54 operation on intestine completed Annamarie June null, [facility] 05/22/2022 11:36:07 Imaging Results Imaging Date Name Status LastModified by Organiz ation Details LastModified Time 08/21/2022 bladder scan (PROC) completed Information not available 08/28/2022 13:53:43 04/21/2023 [facility] [address], [place], [address], 06/06/2023 10:31:40 Procedure Notes None recorded. Medical Equipment None Reported. Allergies No known drug allergies Medications Name Sig Start Date Stop Date Status Note LastModified by Organization Details LastModified Time oxybutynin chloride ER 10 mg tablet,exte nded release 24 hr Take 1 tablet every day by oral route. active Not Available Not Available No t Available sildenafil 100 mg tablet TAKE 1 TABLET BY MOUTH NEEDED active Not Available Not Available No t Available methocarbam ol 750 mg tablet 05/22 completed Not Available Not Available Not Available tamsulosin 0.4 mg capsule active Not Available Not Available Not Available lisinopril 10 mg tablet active Not Available Not Available Not Available gabapentin 300 mg capsule active Not Available Not Available Not Available finasteride 5 mg tablet TAKE 1 TABLET BY MOUTH EVERY DAY active Not Available Not Available No t Available oxycodone 5 mg tablet TAKE 1 TABLET BY MOUTH EVERY 6 HOURS NEEDED FOR PAIN 08/28 completed Not Available Not Available Not Available cholestyram ine (with sugar) 4 gram oral powder 08/28 completed Not Available Not Available Not Available cholestyram ine (with sugar) 4 gram powder for susp in a packet MIX 1 PACKET IN LIQUID THEN TAKE BY MOUTH ONCE DAILY active Not Available Not Available No t Available duloxetine 20 mg capsule,del ayed release active Not Available Not Available Not Available cholecalcif frederick (vitamin D3) 50 mcg (2,000 unit) capsule TAKE 2 CAPSULES BY MOUTH ONCE DAILY active Not Available Not Available No t Available Vitals Date Recorded Body height Body mass index (BMI) Body weight Provider Name and Address Organization Details Last Updated DateTime 05/22/2022 175.26 cm 26.5 kg/m2 34880.75 g Annamarie Garcia [facility] 05/22/2022 11:31:58 Date Recorded Body height Body mass index (BMI) Body weight Provider Name and Address Organization Details Last Updated DateTime 08/28/2022 175.26 cm 26.4 kg/m2 12349.[address] [facility] 08/28/2022 11:36:59 Date Recorded Body height Body mass index (BMI) Body weight Provider Name and Address Organization Details Last Updated DateTime 01/21/2023 175.26 cm 25.8 kg/m2 74854.66 g Mitch Haque MD [address] [place], [place] [address], [address], [facility] 01/21/2023 11:37:29 Social History Question Answer Notes LastModified by Organizat ion Details LastModified Time Tobacco Smoking Status Former Smoker Annamarie westfall, [facility] 05/22/2022 11:35:02 What Is Your Level Of Alcohol Consumption? Occasional [email or web address] Information not available 05/22/2022 How Many Times Per Week Do You Consume Alcohol? Less Than 1 Time Per Week Information not available 08/28/2022 What Is Your Level Of Caffeine Consumption? Moderate [email or web address] Information not available 05/22/2022 Are You Currently Employed? No Information not available 08/28/2022 When Did You Quit Smoking? 16+yearssincel nidia [email or web address] Information not available 05/22/2022 Recreational Drug Use No Information not available 08/28/2022 What Was The Date Of Your Most Recent Tobacco Screening? 01/21/2023 Information not available 01/21/2023 Have You Ever Been Counseled For Unhealthy Alcohol Use? No Information not available 08/28/2022 What Is Your Relationship Status? Information not available 08/28/2022 Do You Use Any Illicit Or Recreational Drugs? No [email or web address] Information not available 05/22/2022 Has Tobacco Cessation Counseling Been Provided? No [email or web address] Information not available 05/22/2022 How Many Years Have You Smoked Tobacco? 15 [email or web address] Information not available 05/22/2022 Do You Or Have You Ever Used Any Other Forms Of Tobacco Or Nicotine? No [email or web address] Information not available 05/22/2022 How Many Days In The Past Year Have You Consumed 5 Or More Drinks? 0 Information no t available 08/28/2022 Sex: Unknown Functional Status None recorded. Mental Status None recorded. Family History Relationship Description Onset Age of this Age Resolved Age Notes Mother Malignant tumor of ovary Medical History Condition Response Sexually Transmitted Infection N Diabetes N Other N Bleeding Disorder N High Blood Pressure Y Kidney Stones Y High Cholesterol N GERD/Acid Reflux N Heart Disease N Cancer N Depression N Lung Disease N Immunizations Vaccine Type Date Status Provider Name and Address Organization Details Recorded Time Influenza, adjuvanted, trivalent, PF 12/21/2017 completed Veda westfall, [facility] 12/04/2022 17:53:07 Influenza, adjuvanted, quadrivalent, PF [facility] 17:53:07 COVID-19, mRNA, LNP-S, PF, 30 mcg/0.3 mL dose 03/31/2020 [facility] 17:53:07 COVID-19, mRNA, LNP-S, PF, 30 mcg/0.3 mL dose 04/21/2020 [facility] 17:53:19 COVID-19, mRNA, LNP-S, PF, 30 mcg/0.3 mL dose, bear-sucrose 07/24/2021 [facility] 17:53:19 COVID-19, mRNA, LNP-S, bivalent, PF, 30 mcg/0.3 mL dose 05/14/2022 [facility] 17:53:19 pneumococcal polysaccharide [email or web address] 06/18/2011 [facility] 17:53:19 Tdap 07/10/2010 [facility]22 17:53:07 Tdap 11/19/2018 [facility] 17:53:19 Pneumococcal conjugate PCV 13 01/10/2016 [facility] 17:53:19 zoster live 11/23/2012 [facility] 17:53:19 Influenza, high-dose, trivalent, PF 10/11/2015 completed Veda westfall, [facility] 12/04/2022 17:53:07 Influenza, high-dose, trivalent, PF 11/12/2015 completed Veda westfall, [facility] 12/04/2022 17:53:07 Influenza, high-dose, trivalent, PF 11/19/2018 completed Veda westfall, [facility] 12/04/2022 17:53:07 Influenza, high-dose, trivalent, PF 11/24/2016 completed Veda westfall [facility] 12/04/2022 17:53:07 Influenza, split virus, trivalent, preservative 11/04/2011 completed Veda westfall, [facility] 12/04/2022 17:53:19 Influenza, split virus, trivalent, preservative 11/23/2012 completed Veda westfall [facility] 12/04/2022 17:53:07 Influenza, split virus, trivalent, PF 10/21/2019 completed Veda westfall [facility] 12/04/2022 17:53:07 COVID-19, mRNA, LNP-S, PF, 30 mcg/0.3 mL dose 12/14/2020 [facility] 17:53:19 Past Encounters Encounter ID Performer Location Encounter Start Date Encounter Closed Date Diagnosis/Indication Diagnosis SNOMED-CT Code [id number] MD LOGAN Sol_Rayna [address] [place] [id number] 05/22/2022 11:24:39 05/26/2022 13:58:15 Kidney stone 11928306 Crohn's disease 93750080 Slowing of urinary stream 73965557 [id number] MD Josue Sol [address] [place] [address] 08/21/2022 11:19:41 08/27/2022 09:39:28 Slowing of urinary stream 08552669 Kidney stone 93423848 Crohn's disease 08350620 [id number] MD Josue Sol [address] [place] [id number] 08/28/2022 11:30:01 09/03/2022 13:31:39 Kidney stone 45518605 Crohn's disease 01485527 Slowing of urinary stream 93531182 Urgent franco yuval to urinate 19199477 Nocturia 510786896 Increased frequency of urination 605374938 Primary er ectile dysfunction [id number] Mitch Haque MD [facility] [address] [place] [address] 01/21/2023 11:13:38 01/22/2023 13:22:18 Kidney stone 65671327 Crohn's disease 46688822 Slowing of urinary stream 29069548 Urgent franco yuval to urinate 21889544 Nocturia 871796754 Increased frequency of urination 822933444 Primary er ectile dysfunction 956736023 Health Concerns Section Related Observation LastModified by Organization Detai ls LastModified Time None Recorded Concern Status LastModified by Organization Details LastModified Time None Recorded Advance Directives Directive None Recorded Payers Encounter Date Sequence Insurance Name Policy Number Policy Velasquez Covered Member ID Velasquez Member ID Guarantor Name 05/22/2022 1 [employer] [id number] Osman D Trevor [id number] Osman D Trevor 08/21/2022 1 [place] [id number] Osman D Trevor [id number] Osman D Trevor 08/28/2022 1 [place] [id number] Osman D Trevor [id number] Osman D Trevor 01/21/2023 1 [place] [id number] Osman D Trevor [id number] Osman D Trevor Notes Date Note Type Note Provider Name and Address Organization Details Recorded Time 05/22/2022 text/html HPI Notes: Mr. Giulia bolivar is a very pleasant 75 yoM who is referred to me by his PCP, Surya CRANDALL, regarding ureteral calculus. Patient was being work up for diarrhea and abdominal discomfort so underwent a CT A/P which noted a large stone within his right ureter, therefore consultation placed. Patient has history of Crohn's disease and kidney stones. Previously saw my partner, Dr. Krishna in 2013 at which time his stone burden consisted of a 3 mm lower pole right kidney stone without evidence of obstruction. At current he reports some minor discomfort in his abdomen but manageable. He reports that his brother also has stones and underwent a ureteroscopy with stent. After hearing his reports he is hopeful for another option. 03/06/21 Here for f/u nephrolithiasis s/o ESWL 01/23/2021. Since his procedure he reports that he's been doing great. First day post-op he had blood in his urine. Second day he passed a large volume of stone material without difficult. Urination now back to normal. No pain. 06/05/21 Here for f/u nephrolithiasis s/o ESWL 01/23/2021. Has been feeling well. Underwent repeat CT to assess residual stone burden. 05/22/2022: Here for follow up history of nephrolithiasis in setting of Crohns disease. Patient underwent a CT A/P for my review and interpretation... there are no left-sided calculi. Within the right renal unit there is a 1 cm lower pole calculus without evidence of hydronephrosis or perinephric fat stranding. Patient also reports significant slowing of his stream. Mitch Haque MD [address], [place], [address], [facility] 05/22/2022 14:29:39 08/28/2022 text/html HPI Notes: Mr. Giulia bolivar is a very pleasant 77 yoM who is referred to me by his PCP, Surya CRANDALL, regarding ureteral calculus. Patient was being work up for diarrhea and abdominal discomfort so underwent a CT A/P which noted a large stone within his right ureter, therefore consultation placed. Patient has history of Crohn's disease and kidney stones. Previously saw my partner, Dr. Krishna in 2014 at which time his stone burden consisted of a 3 mm lower pole right kidney stone without evidence of obstruction. At current he reports some minor discomfort in his abdomen but manageable. He reports that his brother also has stones and underwent a ureteroscopy with stent. After hearing his reports he is hopeful for another option. 03/06/21 Here for f/u nephrolithiasis s/o ESWL 01/23/2021. Since his procedure he reports that he's been doing great. First day post-op he had blood in his urine. Second day he passed a large volume of stone material without difficult. Urination now back to normal. No pain. 06/05/21 Here for f/u nephrolithiasis s/o ESWL 01/23/2021. Has been feeling well. Underwent repeat CT to assess residual stone burden. 05/22/2022: Here for follow up history of nephrolithiasis in setting of Crohns disease. Patient underwent a CT A/P for my review and interpretation... there are no left-sided calculi. Within the right renal unit there is a 1 cm lower pole calculus without evidence of hydronephrosis or perinephric fat stranding. Patient also reports significant slowing of his stream. 08/28/2022: Here for follow up history of nephrolithiasis in setting of Crohns disease, nocturia, urinary urgency, and slowing of his urinary stream. He completed a UroCuff for my review which good and strong flow pattern with evidence of abdominal straining. 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 Mitch Haque MD [address] [place] [address],[address], [address], [facility] 08/28/2022 13:54:53 01/21/2023 text/html HPI Notes: Mr. Giulia bolivar is a very pleasant 77 yoM who is referred to me by his PCP, Surya CRANDALL, regarding ureteral calculus. Patient was being work up for diarrhea and abdominal discomfort so underwent a CT A/P which noted a large stone within his right ureter, therefore consultation placed. Patient has history of Crohn's disease and kidney stones. Previously saw my partner, Dr. Krishna in 2014 at which time his stone burden consisted of a 3 mm lower pole right kidney stone without evidence of obstruction. At current he reports some minor discomfort in his abdomen but manageable. He reports that his brother also has stones and underwent a ureteroscopy with stent. After hearing his reports he is hopeful for another option. 03/06/21 Here for f/u nephrolithiasis s/o ESWL 01/23/2021. Since his procedure he reports that he's been doing great. First day post-op he had blood in his urine. Second day he passed a large volume of stone material without difficult. Urination now back to normal. No pain. 06/05/21 Here for f/u nephrolithiasis s/o ESWL 01/23/2021. Has been feeling well. Underwent repeat CT to assess residual stone burden. 05/22/2022: Here for follow up history of nephrolithiasis in setting of Crohns disease. Patient underwent a CT A/P for my review and interpretation... there are no left-sided calculi. Within the right renal unit there is a 1 cm lower pole calculus without evidence of hydronephrosis or perinephric fat stranding. Patient also reports significant slowing of his stream. 08/28/2022: Here for follow up history of nephrolithiasis in setting of Crohns disease, nocturia, urinary urgency, and slowing of his urinary stream. He completed a UroCuff for my review which good and strong flow pattern with evidence of abdominal straining. 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 01/21/2023: Here for follow up history of nephrolithiasis in setting of Crohns disease, nocturia, urinary urgency, and slowing of his urinary stream. Trial of anticholinergic has significantly improved his urination. Mitch Haque MD [address] [facility] [address] [facility],[address], [place], [address], [facility] 01/21/2023 11:48:39
--- OUTSIDE RECORDS SUMMARY | 2023-10-03 16:28 | XMS_ITS | Clinical Summary ---
Author Organization [facility] Address [place], [place] [address] Care Team Providers Care Product Marketing Specialist Name Role Phone Sourav Anderson MD Unavailable [phone] Jerome Mccartney MD Unavailable [phone] VoHemal burdick MD Primary Care Provider + Allergies Active Allergy Reactions Criticality Noted Date Comments Hydromorphone Itching 02/29/2020 Works fine if benadryl given with it Medications Medication Sig Dispensed Refills Start Date End Date Status multivitamin (MVI) tablet Take 1 tablet by mouth once daily. 0 2 Active Alpha Lipoic Acid 200 mg tabIndications:Ne uropathy involving both lower extremities Take by mouth once daily. 0 6 Active acetaminophen (TYLENOL EXTRA STRGTH) 500 mg tabletIndications :S/P spinal surgery,Post-op pain Take 2 Tablets (1,000 mg) by mouth every 6 hours. Max acetaminophen dose: 4000mg in 24 hrs. 100 Tablet 1 Active cyanocobalamin (Vitamin B-12) 5,000 mcg sublingual tabletIndications :Idiopathic neuropathy,Periph eral polyneuropathy,Ne uropathy involving both lower extremities Place 1 Tablet (5,000 mcg) under the tongue once daily. 0 2 Active cholecalciferol (Vitamin D-3) 2,000 unit capsuleIndication s:Vitamin D deficiency Take 2 Capsules (4,000 units) by mouth once daily. 180 Capsule 3 3 Active Additional Information Patient taking differently:4,000 unit Oral DAILY,Takes 1 tablet daily, Reported on 03/17/2023 DULoxetine (CYMBALTA) 20 mg Delayed-release capsuleIndication s:Idiopathic neuropathy,Periph eral polyneuropathy,Ne uropathy involving both lower extremities TAKE 2 TO 3 CAPSULES AT BEDTIME 270 Capsule 3 4 Active lisinopriL (PRINIVIL; ZESTRIL) 10 mg tabletIndications :Essential hypertension Take 1 Tablet (10 mg) by mouth once daily. 90 Tablet 3 4 Active cholestyramine-dawkins crose 4 G (QUESTRAN) 4 gram packetIndications :SBO (small bowel obstruction) (HC),Crohn's disease of jejunum with complication (HC) Mix 1 Packet in liquid then take by mouth once daily. 90 Packet 3 4 Active oxybutynin XL (DITROPAN XL) 10 mg CR tabletIndications :S/P spinal surgery Take 1 Tablet (10 mg) by mouth once daily. 90 Tablet 3 4 Active tamsulosin (FLOMAX) 0.4 mg capsuleIndication s:Benign non-nodular prostatic hyperplasia with lower urinary tract symptoms TAKE 2 CAPSULES BY MOUTH ONE TIME DAILY AFTER A MEAL. 180 Capsule 2 4 Active gabapentin (NEURONTIN) 300 mg capsuleIndication s:Idiopathic neuropathy,Periph eral polyneuropathy,Ne uropathy involving both lower extremities TAKE 2 CAPSULES (600 MG) BY MOUTH THREE TIMES DAILY. 540 Capsule 1 4 Active gabapentin (NEURONTIN) 300 mg capsuleIndication s:Idiopathic neuropathy,Periph eral polyneuropathy,Ne uropathy involving both lower extremities Take 2 Capsules (600 mg) by mouth three times daily. 180 Capsule 3 4 09/21/19 24 Discontinued Active Problems Problem Noted Date Diagnosed Date Right kidney stone 01/07/2021 Cervical stenosis of spinal canal 06/19/2020 Spinal stenosis in cervical region 06/14/2020 Sensorineural hearing loss, bilateral 01/19/2017 History of cerebellar stroke 01/05/2017 Foraminal stenosis of lumbar region 05/17/2015 Benign non-nodular prostatic hyperplasia with lower urinary tract symptoms 04/19/2015 SBO (small bowel obstruction) 09/09/2014 Neck pain 09/09/2014 Hoarseness of voice 09/09/2014 Supraglottic edema 09/09/2014 Idiopathic neuropathy 09/09/2014 History of renal stone 09/09/2014 Neuropathy of lower extremity 01/17/2014 Painful Peripheral Neuropathy 01/12/2013 Vitamin D deficiency 01/12/2013 Family history of diabetes mellitus 06/29/2012 Lumbar facet arthropathy 06/09/2012 Insomnia, unspecified 06/18/2011 Crohn's disease of jejunum with complication 10/2011 Overview: Resection in 1972 Colonoscopy 06/2011 normal repeat in 5 years Colonoscopy 02/2017 erosion on ileocolonic anastomosis, no repeat colonoscopy Kidney stone 06/18/2011 Overview: 2001, 2013 Unspecified essential hypertension 06/18/2011 Resolved Problems Problem Noted Date Diagnosed Date Resolved Date Cervical myelopathy 05/14/2022 03/17/19 24 Lumbar radicular pain on the left 06/09/2012 05/20/2013 Lumbar disk bulges 06/09/2012 5 Neuropathy of lower extremity 06/18/2011 05/20/2013 Overview: Both feet Encounters Date Type Department Care Team Description 09/18/2023 Refill [facility] [address] [place] [address] Hemal Hayward MD Refill Request (Gabapentin) 07/28/2023 1:15 PM CDT Office Visit [facility] [address] [place] [address] Abdirashid Woodruff DPM Ulcer (Follow up-right 2nd toe) 07/28/2023 Travel 07/14/2023 2:00 PM CDT Office Visit [facility] [address] [place] [address] Abdirashid Woodruff DPM Ulcer (Follow up-right 2nd toe) 07/14/2023 Travel from Last 3 Months Immunizations Name Administration Dates Next Due COVID-19 vaccine (Eventpig-Bio NTech 30mcg/0.3mL) 12YO+ BIVALENT PF, MDV 05/14/2022 COVID-19 vaccine (Pfizer-Bio NTech 30mcg/0.3mL) 12YO+ GALO-SUCROSE PF, MDV 07/24/2021 COVID-19 vaccine (Eventpig-Bio NTech 30mcg/0.3mL) PF, MDV 04/21/2020,03/31/2020 Influenza, High-dose Inactivated 019,11/24/2016,11/12/2015,10/10 Influenza, High-dose Quadriv alent Inactivated 11/04/2022 Influenza, IIV3 (Age 6-35 mos) 10/21/2019 Influenza, IIV3 (Age >=3 years) 11/23/2012,11/03 Influenza, Inactivated AIIV4 (Age 65+ Years) Preserv Free 11/20/2020 Influenza, Inactivated IIV3 (Age 65+ Years) Preserv Free 12/21/2017 Pneumococcal Poly,23-Valent (Pneumovax) 06/18/2011 Pneumococcal conj 13-Valent (Prevnar 13) 01/10/2016 RSV, Recombinant ADJ Reconst ituted (Arexvy 120MCG/0.5mL) 11/04/2022 Tdap 11/19/2018,07/10/2010 Zoster (Zostavax-ZVL, live) 11/23/2012 Family History Medical History Relation Name Comments Other Brother 1 Down's d at 6 Hypertension Brother 2 Diabetes Brother 3 GI Disease Brother 4 Crohn's Other Brother 5 pneumonia d at 6 Cancer-prostate Father Diabetes Father Heart Disease Father CHF - at 86 Other Father COPD Cancer Mother ovarian at 81 Other Mother Alzheimer's Diabetes Other 3 paternal uncl es Diabetes Paternal Grandfather Diabetes Paternal Grandmother Other Sister Down's d at 12 Relation Name Status Comments Brother 1 Brother 2 Brother 3 Brother 4 Brother 5 Father Mother Other Paternal Grandfather Paternal Grandmother Sister Social History Tobacco Use Types Packs/Day Years Used Date Smoking Tobacco: Former Cigarettes 0 02/09/1969 - 02/09/1989 Smokeless Tobacco: Former Chew Quit: 1980 Tobacco Cessation:Counseling Given: Yes Comments:occasionally smokes cigar Alcohol Use Standard Drinks/Week Comments Yes 0 (1 standard drink = 0.6 oz pur e alcohol) rare/socially PHQ-2 Answer Date Recorded PHQ-2 TOTAL SCORE 0 03/17/2023 Social Connections Answer Date Recorded Frequency of Communication with Friends and Fami ly 0 06/01/2023 Alcohol Use Answer Date Recorded How often do you have a drink containing alcohol ? 1 03/06/2021 How many drinks containing a lcohol do you have on a typical day when you are drinking? 0 03/06/2021 How often do you have five or more drinks on one occasion? 0 03/06/2021 Financial Resource Strain Answer Date R ecorded Difficulty of Paying Living Expenses 3 06/01/2023 Difficulty of Paying Living Expenses Not on file 06/01/2023 Food Insecurity Answer Date Recorded Worried About Running Out of Food in the Last Ye ar 1 06/01/2023 Transportation Needs Answer Date Record ed Lack of Transportation (Medical) 1 06/01/2023 Housing Stability Answer Date Recorded Unable to Pay for Housing in the Last Year 1 06/01/2023 Sex and Gender Information Value Date Recorded Sex Assigned at Not on file Gender Identity Male 02/26/2020 12:32 PM BEAUTY CULTURIST Sexual Orientation Straight 02/26/2020 12 :32 PM BEAUTY CULTURIST Obstetrics History Last Filed Vital Signs Vital Sign Reading Time Taken Comments Blood Pressure 115/69 07/28/2023 1:09 PM CDT Pulse 58 07/28/2023 1:09 PM CDT Temperature 36.7 ??C (98 ??F) 03/17/2023 8:55 AM BEAUTY CULTURIST Respiratory Rate 18 03/06/2021 2:40 PM BEAUTY CULTURIST Oxygen Saturation 95% 07/28/2023 1:09 PM CDT Inhaled Oxygen Concentration - - Weight 81.2 kg (179 lb) 07/28/2023 1:09 PM CDT Height 172.5 cm (5' 7.9) 06/01/2023 2:20 PM CDT Body Mass Index 27.3 06/01/2023 2:20 PM CDT Plan of Treatment Upcoming Encounters Date Type Department Care Team (Late st Contact Info) Description 11/03/2023 3:45 PM CDT Office Visit [facility] [address] [place] [address] Abdirashid Woodruff DPM [address] [place] [address] Health Maintenance Due Date Last Done Comments Zoster (shingles) series for age 50+ (2 of 3) 01/18/2013 11/23/2012 COVID-19 vaccine series ( season) 2022 05/14/2022, 07/24/2021, 12/14/2020, Additional history exists Influenza for age 65+ 10/11/2023 11/04/2022 , 11/20/2020, 11/19/2018, Additional history exists Depression screening for age 12+ 03/17/2024 03/17/2023, 07/25/2021, 07/24/2021, Additional history exists Medicare Wellness for age 65+ 03/17/2024, 07/24/2021, 09/02/2018, Additional history exists BMI (ht and wt on same day) for age 18+ 05/31/2024 06/01/2023, 03/17/2023, 05/14/2022, Additional history exists Tetanus booster 11/19/2028 11/19/2018, 07/10/2010 Hepatitis C screening for ag e 18-79 Completed 01/10/2016 Pneumococcal series for age 65+ Completed 6, 06/18/2011 Tdap Completed 11/19/2018, 07/10/2010 Medical Devices Implanted Type Area Coin Machine Assembler Device Identifier Shelf Expiration Date Model / Serial / Lot [id number] 6bone Cerv 7mm 4 Deg [place] W/P Implanted:Qty: 1 on 06/19/2020 by Adrian Perera MD at [facility] Explanted:at [facility] (Quantity not on file) N/A: Spine Melrose Spine 01/16/2025 [id number] / [id number] / [id number] 3bone Cerv 7mm 4 Deg Jennifer W/P Implanted:Qty: 1 on 06/19/2020 by Adrian Perera MD at [facility] Explanted:at [facility] (Quantity not on file) N/A: Spine Melrose Spine 01/31/2025 [id number] / [id number] / [id number] 6bone Cerv 7mm 4 Deg Jennifer W/P Implanted:Qty: 1 on 06/19/2020 by Adrian Perera MD at [facility] Explanted:at [facility] (Quantity not on file) N/A: Spine Jennifer Spine 03/15/2025 [id number] / [id number] / [id number] one Matrix 1cc [place] Plus Paste Dbm Implanted:Qty: 1 on 06/19/2020 by Adrian Perera MD at [facility] Explanted:at [facility] (Quantity not on file) N/A: Spine Medtronic Spine/Ortho 11/02/2024 [id number] / [id number] / Plate [place] 3 Lvl 63mm Implanted:Qty: 1 on 06/19/2020 by Adrian Perera MD at [facility] N/A: Spine [id number] / / Description:PLATE OZARK 3 LV L 63MM Screw [place] 4.0 X 14 Implanted:Qty: 8 on 06/19/2020 by Adrian Perera MD at [facility] N/A: Spine [id number] / / Description:SCREW OZARK 4.0 X 14 Procedures Procedure Name Priority Date/Time Associated Diagnosis Comments ANTI HCV Routine 01/10/2016 3:13 PM BEAUTY CULTURIST Need for hepatitis C screening test from Last 3 Months or Most Recently Relevant to Health Maintenance Results * ANTI HCV [39248.2] (01/10/2016 3:13 PM BEAUTY CULTURIST) HEPATITIS C ANTIBODY Non-Reacti ve Non-Reacti ve 01/10/2016 10:04 PM BEAUTY CULTURIST [facility] Blood BLOOD SPECIMEN / Unknown Venipuncture / Unknown 01/10/2016 3:13 PM BEAUTY CULTURIST 01/10/2016 3:13 PM BEAUTY CULTURIST Narrative [facility] - 01/10/2016 10:04 PM BEAUTY CULTURIST Antibodies to HCV not detected; does not exclude the possibility of exposure to HCV. Travis Hyde MD SEND OUTS [facility] [address] [place] [address], from Last 3 Months or Most Recently Relevant to Health Maintenance Advance Directives * Full Code (Latest Code Status on File) Date Activated Date Inactivated Comments 06/19/2020 5:20 PM 06/21/2020 2:27 PM Question Answer Comments Code Status Discussion: Not Discussed * Full Code Date Activated Date Inactivated Comments 09/09/2014 4:21 PM 09/12/2014 2:13 PM Question Answer Comments Code Status Discussion: Discussed Care Teams Product Marketing Specialist Relationship Specialty Start Date End Date VoteHemal bowles MD [address] [place] [address] PCP - General Family Practice 06/23/22 Sourav Anderson MD [address] [place] [address] Sports Medicine 06/29/12 Jerome Mccartney MD [address] [facility] [place] [address] Gastroenterology 06/29/12
== END 2023-10-03 16:50 | disposition home or self-care (01) ==
LOC: ED 16:26
PROVIDERS: Emergency Provider Family Medicine; PCP Family Medicine
DX: S61.412A Laceration without foreign body of left hand, initial encounter (principal); W23.0XXA Caught, crushed, jammed, or pinched between moving objects, initial encounter
CPT/HCPCS: 12001; 99283; 99284

== ENCOUNTER 2024-05-06 15:27 | Emergency (ER) | payer MEDICARE, BC, SELFPAY ==
--- OUTSIDE RECORDS SUMMARY | 2024-05-06 15:30 | XMS_ITS | Clinical Summary ---
Author Organization [email or web address] [facility] Address [address] [place] [address] Care Team Providers Care Rheumatology Specialist Name Role Phone Sourav Anderson MD Unavailable [phone] GadekJerome MD Unavailable [phone] VoteHemal bowles MD Primary Care Provider + Allergies Active Allergy Reactions Criticality Noted Date Comments Hydromorphone Itching 02/29/2020 Works fine if benadryl given with it Medications multivitamin (MVI) tablet Take 1 tablet by mouth once daily. 0 06/18/19 12 Active Alpha Lipoic Acid 200 mg tabIndications:N europathy involving both lower extremities Take by mouth once daily. 0 01/10/20 16 Active acetaminophen (TYLENOL EXTRA STRGTH) 500 mg tabletIndication s:S/P spinal surgery,Post-op pain Take 2 Tablets (1,000 mg) by mouth every 6 hours. Max acetaminophen dose: 4000mg in 24 hrs. 100 Tablet 06/26/19 21 Active cyanocobalamin (Vitamin B-12) 5,000 mcg sublingual tabletIndication s:Idiopathic neuropathy,Perip heral polyneuropathy,N europathy involving both lower extremities Place 1 Tablet (5,000 mcg) under the tongue once daily. 0 07/25/19 22 Active cholecalciferol (Vitamin D-3) 2,000 unit capsuleIndicatio ns:Vitamin D deficiency Take 2 Capsules (4,000 units) by mouth once daily. 180 Capsule 3 08/07/19 23 Active Additional Information Patient taking differently:4,000 unit Oral DAILY,Takes 1 tablet daily, Reported on 03/24/2024 oxybutynin XL (DITROPAN XL) 10 mg CR tabletIndication s:S/P spinal surgery Take 1 Tablet (10 mg) by mouth once daily. 90 Tablet 3 03/24/19 25 Active lisinopriL (PRINIVIL; ZESTRIL) 10 mg tabletIndication s:Essential hypertension Take 1 Tablet (10 mg) by mouth once daily. 90 Tablet 3 03/24/19 25 Active DULoxetine (CYMBALTA) 20 mg Delayed-release capsuleIndicatio ns:Idiopathic neuropathy,Perip heral polyneuropathy,N europathy involving both lower extremities TAKE 2 CAPSULES AT BEDTIME 180 Capsule 3 03/24/19 25 Active cholestyramine-s ucrose 4 G per scoop (QUESTRAN) 4 gram powderIndication s:Crohn's disease of jejunum with complication (HC) Mix 1 Packet in liquid then take by mouth once daily. 378 g 3 03/24/19 25 Active tamsulosin 0.4 mg capsuleIndicatio ns:Benign non-nodular prostatic hyperplasia with lower urinary tract symptoms TAKE 2 CAPSULES BY MOUTH ONE TIME DAILY AFTER A MEAL. 180 Capsule 3 03/24/19 25 Active gabapentin (NEURONTIN) 300 mg capsuleIndicatio ns:Idiopathic neuropathy,Perip heral polyneuropathy,N europathy involving both lower extremities Take 2 Capsules (600 mg) by mouth three times daily. 540 Capsule 1 03/24/19 25 Active Active Problems Problem Noted Date Diagnosed Date [...] Crohn's disease of jejunum with complication 10/2011 Overview (02/12/2017): Resection in 1972 Colonoscopy 06/2011 normal repeat in 5 years Colonoscopy 02/2017 erosion on ileocolonic anastomosis, no repeat colonoscopy Kidney stone 06/18/2011 Overview (07/28/2013): 2013 Unspecified essential hypertension 06/18/2011 Resolved Problems Problem Noted Date Diagnosed Date Resolved Date Cervical myelopathy 05/14/2022 03/17/19 24 Lumbar radicular pain on the left 06/09/2012 05/20/2013 Lumbar disk bulges 06/09/2012 5 Neuropathy of lower extremity 06/18/2011 05/20/2013 Overview (06/18/2011): Both feet Encounters Date Type Department Care Team Description 03/24/2024 10:50 AM TANK CAR MECHANIC Office Visit [facility] [address] [place] [address] Hemal Hayward MD Medication Management; Immunization/Injectio n 03/24/2024 Travel 03/22/2024 Telephone [facility] [address] [place] [address] Hemal Hayward MD Medication Management from Last 3 Months Immunizations Immunization Administration Dates Next Due COVID-19 vaccine (Pfizer-Bio NTech 30mcg/0.3mL) 12YO+ BIVALENT PF, MDV 05/14/2022 COVID-19 vaccine (LogRhythm-Bio NTech 30mcg/0.3mL) 12YO+ GALO-SUCROSE PF, MDV 07/24/2021 COVID-19 vaccine (LogRhythm-Bio NTech 30mcg/0.3mL) PF, MDV 04/21/2020,03/31/2020 Influenza, High-dose Inactivated 019,11/24/2016,11/12/2015,10/10 Influenza, High-dose Quadriv alent Inactivated 11/04/2022 Influenza, IIV3 (Age 6-35 mos) 10/21/2019 Influenza, IIV3 (Age >=3 years) 11/23/2012,11/03 Influenza, Inactivated AIIV4 (Age 65+ Years) Preserv Free 11/20/2020 Influenza, Inactivated IIV3 (Age 65+ Years) Preserv Free 03/24/2024,12/21/2017 Pneumococcal Poly,23-Valent (Pneumovax) 06/18/2011 Pneumococcal conj 13-Valent [...] Answer Date Recorded PHQ-2 TOTAL SCORE 0 03/24/2024 Social Connections Answer Date Recorded Do you often feel lonely or isolated from those around you? 0 06/01/2023 Alcohol Use Answer Date Recorded [...] file 06/01/2023 Food Insecurity Answer Date Recorded Do you worry your food will run out before you are able to buy more? 1 06/01/2023 Transportation Needs Answer Date Record ed Does lack of transportation keep you from medica l appointments? 1 06/01/2023 Does lack of transportation keep you from work, meetings or getting things that you need? 1 06/01/2023 Housing Stability Answer Date Recorded What is your housing situation today? 1 06/01/2023 Utilities Answer Date Recorded Do you have trouble paying f or utilities (for example, heat, electricity, water, phone)? 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 file Not on file Not on file Obstetrics History Last Filed Vital Signs Vital Sign Reading Time Taken Comments Blood Pressure 98/64 03/24/2024 11:03 AM TANK CAR ME[employer]IC Pulse 68 03/24/2024 11:03 AM TANK CAR ME[employer]IC Temperature 36.7 C (98 F) 03/17/2023 8:55 AM TANK CAR ME[employer]IC Respiratory Rate 18 03/06/2021 2:40 PM [employer]ANK CAR MECH[employer]IC Oxygen Saturation 98% 03/24/2024 11: 03 AM [employer]ANK CAR ME[employer]IC Inhaled Oxygen Concentration - - Weight 83.9 kg (184 lb 14.4 oz) 025 11:03 AM TANK CAR MECHANIC Height 172.5 cm (5' 7.9) 03/24/2024 11 :03 AM TANK CAR MECH[employer]IC Body Mass Index 28.2 03/24/2024 11:03 AM TANK CAR MECH[employer]IC Plan of Treatment Health Maintenance Due Date Last Done Comments Zoster (shingles) series for age 50+ (2 of 3) 01/18/2013 11/23/2012 COVID-19 vaccine series ( season) 2023 05/14/2022, 07/24/2021, 12/14/2020, Additional history exists Medicare Wellness for age 65+ 03/17/2024, 07/24/2021, 09/02/2018, Additional history exists BMI (ht and wt on same day) for age 18+ 03/24/2025 03/24/2024, 06/01/2023, 03/17/2023, Additional history exists Depression screening for age 12+ 03/24/2025 03/24/2024, 03/17/2023, 07/25/2021, Additional history exists Tetanus booster 11/19/2028 11/19/2018, 07/10/2010 Hepatitis C screening for ag e 18-79 Completed 01/10/2016 Pneumococcal series for age 50+ Completed 6, 06/18/2011 Tdap Completed 11/19/2018, 07/10/2010 RSV vaccine for adults or Completed 11/04/2022 Influenza Vaccine Completed 03/24/2024, , 10/21/2019, Additional history exists Medical Devices Implanted Type Area Recycler Forklift Driver Truck Driver Device Identifier Shelf Expiration Date Model / Serial / Lot [id number] 6bone Cerv 7mm 4 Deg Sherrill W/P Implanted:Qty: 1 on 06/19/2020 by Adrian Perera MD at [facility] Explanted:at [facility] (Quantity not on file) N/A: Spine Jennifer Spine 01/16/2025 [id number] / [id number] / [id number] 3bone Cerv 7mm 4 Deg Sherrill W/P Implanted:Qty: 1 on 06/19/2020 by Adrian Perera MD at [facility] Explanted:at [facility] (Quantity not on file) N/A: Spine Sherrill Spine 01/31/2025 [id number] / [id number] / [id number] 6bone Cerv 7mm 4 Deg Sherrill W/P Implanted:Qty: 1 on 06/19/2020 by Adrian Perera MD at [facility] Explanted:at [facility] (Quantity not on file) N/A: Spine Jennifer Spine 03/15/2025 [id number] / [id number] / [id number] one Matrix 1cc Rush Plus Paste Dbm Implanted:Qty: 1 on 06/19/2020 by Adrian Perera MD at [facility] Explanted:at [facility] (Quantity not on file) N/A: Spine Medtronic Spine/Ortho 11/02/2024 [id number] / [id number] / Plate Gonzales 3 Lvl 63mm Implanted:Qty: 1 on 06/19/2020 by Adrian Perera MD at [facility] N/A: Spine [id number] / / Description:PLATE OZARK 3 LV L 63MM Screw Gonzales 4.0 X 14 Implanted:Qty: 8 on 06/19/2020 by Adrian Perera MD at [facility] N/A: Spine [id number] / / Description:SCREW OZARK 4.0 X 14 Procedures Procedure Name Priority Date/Time Associated Diagnosis Comments CBC WITH AUTO DIFFERENTIAL Routine 03/24/2024 12:12 PM [employer] CAR [employer]IC Idiopathic neuropathy BASIC METABOLIC PANEL Routine 03/24/2024 12:12 PM [employer]ANK CAR [employer]IC Unspecified essential hypertension ALT (SGPT) Routine 03/24/2024 12:12 PM [employer]ANK CAR [employer]IC Screening cholesterol level LIPID PANEL W REFLEX MEASURED LDL Routine 03/24/2024 12:12 PM TANK CAR ME[employer]IC Screening cholesterol level VITAMIN D 25 (DEFICIENCY) Routine 03/24/2024 12:12 PM [employer]ANK CAR [employer]IC Vitamin D deficiency PSA TOTAL Routine 03/24/2024 12:12 PM [employer] CAR [employer]IC Screening PSA (prostate specific antigen) ANTI HCV Routine 01/10/2016 3:13 PM TANK CAR ME[employer]IC Need for hepatitis C screening test from Last 3 Months or Most Recently Relevant to Health Maintenance Results * (ABNORMAL) LIPID PANEL W REFLEX MEASURED LDL (03/24/2024 12:12 PM TANK CAR MECHANIC) CHOLESTEROL, TOTAL 174 <200 mg/dL [facility] HDL CHOLESTEROL 38(L) > OR = 40 mg/dL [facility] TRIGLYCERIDES 195(H) <150 mg/dL [facility] LDL-CHOLESTEROL 105(H) mg/dL (calc) [facility] Comment: Reference range: <100 Desirable range <100 mg/dL for primary prevention; <70 mg/dL for patients with CHD or diabetic patients with > or = 2 CHD risk factors. LDL-C is now calculated using the Rocio calculation, which is a validated novel method providing better accuracy than the Friedewald equation in the estimation of LDL-C. Jerome BRAR et al. MECHELLE. 2013;310(19): 0188-7099 (http://education.[employer]/faq/UVM231) CHOL/HDLC RATIO 4.6 <5.0 (calc) [facility] NON HDL CHOLESTEROL 136(H) <130 mg/dL (calc) [facility] Comment: For patients with diabetes plus 1 major ASCVD risk factor, treating to a non-HDL-C goal of <100 mg/dL (LDL-C of <70 mg/dL) is considered a therapeutic option. Blood BLOOD SPECIMEN / Unknown 03/24/2024 12:12 PM TANK CAR MECHANIC 03/24/2024 12:13 PM TANK CAR MECH[employer]IC Hemal Hayward MD CHEMISTRY Final Re sult [facility] [address] [place] [address], [facility] [address] [place] [address] * VITAMIN D 25 (DEFICIENCY) (03/24/2024 12:12 PM TANK CAR MECHANIC) VITAMIN D,25-OH,TOTAL,IA 37 30 - 100 ng/mL [facility] Comment: Vitamin D Status 25-OH Vitamin D: Deficiency: <20 ng/mL Insufficiency: 20 - 29 ng/mL Optimal: > or = 30 ng/mL For 25-OH Vitamin D testing on patients on D2-supplementation and patients for whom quantitation of D2 and D3 fractions is required, the [facility](TM) 25-OH VIT D, (D2,D3), LC/MS/MS is recommended: order code 43480 (patients >2yrs). See Note 1 Note 1 For additional information, please refer to http://education.[employer]/faq/MCK972 (This link is being provided for informational/ educational purposes only.) Blood BLOOD SPECIMEN / Unknown 03/24/2024 12:12 PM TANK CAR MECHANIC 03/24/2024 12:13 PM TANK CAR MECH[employer]IC Hemal Hayward MD SEND OUTS Final Re sult [facility] [address] [place] [address], [facility] [address] [place] [address] * (ABNORMAL) CBC AND DIFFERENTIAL (03/24/2024 12:12 PM TANK CAR MECHANIC) Pathologist [facility] WHITE BLOOD CELL COUNT 5.8 3.8 - 10.8 Thousand/u L [facility] RED BLOOD CELL COUNT 4.58 4.20 - 5.80 Million/uL [facility] HEMOGLOBIN 15.3 13.2 - 17.1 g/dL [facility] HEMATOCRIT 44.1 38.5 - 50.0 % [facility] MCV 96.3 80.0 - 100.0 fL [facility] MCH 33.4(H) 27.0 - 33.0 pg [facility] MCHC 34.7 32.0 - 36.0 g/dL [facility] Comment: For adults, a slight decrease in the calculated MCHC value (in the range of 30 to 32 g/dL) is most likely not clinically significant; however, it should be interpreted with caution in correlation with other red cell parameters and the patient's clinical condition. RDW 12.7 11.0 - 15.0 % [facility] PLATELET COUNT 214 140 - 400 Thousand/u L [facility] MPV 10.5 7.5 - 12.5 fL [facility] ABSOLUTE NEUTROPHILS 3,979 1,500 - 7,800 cells/uL [facility] ABSOLUTE LYMPHOCYTES 1,114 850 - 3,900 cells/uL [facility] ABSOLUTE MONOCYTES 528 200 - 950 cells/uL [facility] ABSOLUTE EOSINOPHILS 151 15 - 500 cells/uL [facility] ABSOLUTE BASOPHILS 29 0 - 200 cells/uL [facility] NEUTROPHILS 68.6 % [facility] LYMPHOCYTES 19.2 % [facility] MONOCYTES 9.1 % [facility] EOSINOPHILS 2.6 % [facility] BASOPHILS 0.5 % [facility] Blood BLOOD SPECIMEN / Unknown 03/24/2024 12:12 PM TANK CAR MECHANIC 03/24/2024 12:13 PM TANK CAR MECHANIC Hemal Hayward MD HEMATOLOGY Final Re sult [facility] [address] [place] [address], [place] [phone] [facility] [address] [facility] [place] [address] * ALT (SGPT) (03/24/2024 12:12 PM TANK CAR MECHANIC) ALT 22 9 - 46 U/L [facility] Blood BLOOD SPECIMEN / Unknown 03/24/2024 12:12 PM TANK CAR MECHANIC 03/24/2024 12:13 PM TANK CAR MECHANIC Hemal Hayward MD CHEMISTRY Final Re sult [facility] [address] [facility] [address], [place] [phone] [facility] [address] [place] [address] * PSA TOTAL (DIAG OR SCREEN) (03/24/2024 12:12 PM TANK CAR MECHANIC) PSA, TOTAL 0.25 < OR = 4.00 ng/mL [facility] Comment: The total PSA value from this assay system is standardized against the WHO standard. The test result will be approximately 20% lower when compared to the equimolar-standardized total PSA ([place]). Comparison of serial PSA results should be interpreted with this fact in mind. This test was performed using the Siemens chemiluminescent method. Values obtained from different assay methods cannot be used interchangeably. PSA levels, regardless of value, should not be interpreted as absolute evidence of the presence or absence of disease. Blood BLOOD SPECIMEN / Unknown 03/24/2024 12:12 PM TANK CAR MECHANIC 03/24/2024 12:13 PM TANK CAR MECHANIC Hemal Hayward MD CHEMISTRY Final Re sult [email or web address] [address] [place] [address], [facility] [address] [place] [address] * (ABNORMAL) BASIC METABOLIC PANEL (03/24/2024 12:12 PM TANK CAR MECHANIC) Pathologist [facility] GLUCOSE 108(H) 65 - 99 mg/dL [facility] Comment: Fasting reference interval For someone without known diabetes, a glucose value between 100 and 125 mg/dL is consistent with prediabetes and should be confirmed with a follow-up test. UREA NITROGEN (BUN) 23 7 - 25 mg/dL [facility] CREATININE 1.32(H) 0.70 - 1.28 mg/dL [facility] EGFR 55(L) > OR = 60 mL/min/1.7 3m2 [facility] BUN/CREATININE RATIO 17 6 - 22 (calc) [facility] SODIUM 140 135 - 146 mmol/L [facility] POTASSIUM 4.6 3.5 - 5.3 mmol/L [facility] CHLORIDE 101 98 - 110 mmol/L [facility] CARBON DIOXIDE 30 20 - 32 mmol/L [facility] ELECTROLYTE BALANCE 9 7 - 17 mmol/L (calc) [facility] CALCIUM 9.5 8.6 - 10.3 mg/dL [facility] Blood BLOOD SPECIMEN / Unknown 03/24/2024 12:12 PM TANK CAR MECH[employer]IC 03/24/2024 12:13 PM TANK CAR MECH[employer]IC Hemal Hayward MD CHEMISTRY Final Re sult [facility] [address] [place] [address], [facility] [address] [place] [address] * ANTI HCV [90847.2] (01/10/2016 3:13 PM TANK CAR MECHANIC) HEPATITIS C ANTIBODY Non-Reacti ve Non-Reacti ve 01/10/2016 10:04 PM TANK CAR MECHANIC [facility] Blood BLOOD SPECIMEN / Unknown Venipuncture / Unknown 01/10/2016 3:13 PM TANK CAR MECHANIC 01/10/2016 3:13 PM TANK CAR MECHANIC Narrative [facility] - 01/10/2016 10:04 PM TANK CAR MECHANIC Antibodies to HCV not detected; does not exclude the possibility of exposure to HCV. Travis Hyde MD SEND OUTS Final Re sult [facility] [address] [place] [address], [place] from Last 3 Months or Most Recently Relevant to Health Maintenance Insurance MEDICARE PART A HB ONLY [employer] [place] BLUE MR PB ONLY [employer] [place] BLUE HB ONLY Advance Directives * Full Code (Latest Code Status on File) Date Activated Date Inactivated Comments 06/19/2020 5:20 PM 06/21/2020 2:27 PM Question Answer Comments Code Status Discussion: Not Discussed * Full Code Date Activated Date Inactivated Comments 09/09/2014 4:21 PM 09/12/2014 2:13 PM Question Answer Comments Code Status Discussion: Discussed Care Teams Rheumatology Specialist Relationship Specialty Start Date End Date Votel, Hemal Jensen MD [address] [place] [address] PCP - General Family Practice 06/23/22 Sourav Anderson MD [address] [place] [address] Sports Medicine 06/29/12 Jerome Mccartney MD [address] [place] [address] Gastroenterology 06/29/12
[2024-05-06 15:41] VITALS: BP 103/64; PULSE 88; RESP 16; TEMP 37.5; O2SAT 94; BMI 26.3
[2024-05-06] MEDS: LIDOCAINE 1%-EPI 1:100,000 3 ML INFILTRATI (17:00)
--- NOTE | 2024-05-06 17:01 | ED.WOUNDLAC ---
HPI - Wound/Laceration General Time Seen by Provider: 17:01 Date Seen: 05/06/24 Chief Complaint: Laceration/Wound Stated Complaint: Lt Pointer knuckle cut Time Seen by Provider: 05/06/24 16:53 Source: patient and RN notes reviewed Mode of arrival: ambulatory Limitations: no limitations History of Present Illness HPI narrative: This 78-year-old male was using a laboratory apparatus glass grinder today when he accidentally slipped and caught his left index finger on it. He actually cleaned his finger out, wrapped it with a Band-Aid. He went to do something else and was using his left hand, started bleeding around the Band-Aid. He denies any numbness tingling that is different from his baseline peripheral neuropathy. He was unsure of his tetanus, I did look up in patient's [facility] record and his Tdap was last given 11/19/2018. He has been using his finger, can fully flex and extend. Related Data Home Medications ?Medication ?Instructions ?Recorded ?Confirmed duloxetine 20 mg capsule,delayed 60 mg PO DAILY 06/04/22 05/06/24 release finasteride 5 mg tablet 5 mg PO DAILY 06/04/22 05/06/24 gabapentin 300 mg capsule 600 mg PO TID 06/04/22 05/06/24 lisinopril 10 mg tablet 10 mg PO DAILY 06/04/22 05/06/24 tamsulosin 0.4 mg capsule 0.8 mg PO DAILY 06/04/22 05/06/24 oxybutynin chloride 10 mg 10 mg PO DAILY 10/03/23 05/06/24 tablet,extended release 24 hr Allergies Allergy/AdvReac Type Severity Reaction Status Date / Time No Known Drug Allergies Allergy Verified 05/06/24 15:48 Review of Systems Status of ROS: Reports: 6 or more systems reviewed and unremarkable except as noted in History and below [facility] Medical History Elevated lipase ?R74.8 - Abnormal levels of other serum enzymes (ICD-10) Crohn's disease ?K50.90 - Crohn's disease, unspecified, without complications (ICD-10) Lumbar facet arthropathy ?M47.816 - Spondylosis without myelopathy or radiculopathy, lumbar region (ICD-10) Foraminal stenosis of lumbar region ?M48.061 - Spinal stenosis, lumbar region without neurogenic claudication (ICD-10) Spinal stenosis in cervical region ?M48.02 - Spinal stenosis, cervical region (ICD-10) Cervical myelopathy ?G95.9 - Disease of spinal cord, unspecified (ICD-10) Vitamin D deficiency ?E55.9 - Vitamin D deficiency, unspecified (ICD-10) Essential hypertension ?I10 - Essential (primary) hypertension (ICD-10) Supraglottic edema ?J38.4 - Edema of larynx (ICD-10) Stroke ?I63.9 - Cerebral infarction, unspecified (ICD-10) SBO (small bowel obstruction) ?K56.609 - Unspecified intestinal obstruction, unspecified as to partial versus complete obstruction (ICD-10) Neuropathy, peripheral ?G62.9 - Polyneuropathy, unspecified (ICD-10) Neuropathy of lower extremity ?G57.90 - Unspecified mononeuropathy of unspecified lower limb (ICD-10) Kidney stone ?N20.0 - Calculus of kidney (ICD-10) Insomnia ?G47.00 - Insomnia, unspecified (ICD-10) Crohn's disease of jejunum ?K50.00 - Crohn's disease of small intestine without complications (ICD-10) Surgical History History of spinal surgery ?Z98.890 - Other specified postprocedural states (ICD-10) History of exploratory laparotomy ?Z98.890 - Other specified postprocedural states (ICD-10) History of laparoscopic cholecystectomy ?Z90.49 - Acquired absence of other specified parts of digestive tract (ICD-10) History of knee surgery ?Z98.890 - Other specified postprocedural states (ICD-10) History of lithotripsy ?Z98.890 - Other specified postprocedural states (ICD-10) History of bowel resection ?Z90.49 - Acquired absence of other specified parts of digestive tract (ICD-10) History of foot surgery ?Z98.890 - Other specified postprocedural states (ICD-10) History of colonoscopy ?Z98.890 - Other specified postprocedural states (ICD-10) Social History Narrative: Lives with Debi (medical decision maker if needed) [place]. 3 adult children, 9 granddaughters. Retired (used car sales), mows at golf course now. Occasional cigar, rare ETOH use. Full Code status. Smoking Status: Light tobacco smoker What tobacco products do you use: cigars Do you use any of these nicotine containing products: None Second hand tobacco smoke exposure: No How often do you have a drink containing alcohol: monthly or less Alcohol type: beer How often do you have six or more drinks on one occasion: Never AUDIT-C Alcohol total score: 1 Non-prescribed substance use: denies use Caffeine: Yes (coffee) service: No Exam Const: Vital Signs, click to edit/add: Vital Signs - 24 hr 05/06/24 15:41 Temperature 99.5 F Pulse Rate [Pulse Oximeter] 88 Respiratory Rate 16 Blood Pressure [Ri ght Upper Arm] 103/64 Pulse Oximetry 94 Oxygen Delivery Me thod Room Air Patient's dressing is removed it which was a bandage. He has a linear vertical cut along the lateral 2nd it finger on the lateral edge of the PIP joint. Wound edges do gape with movement, he is able to fully flex and extend the finger, no loss of any strength. There is no active bleeding at this time, no visual retained foreign body. It looks to be into the subcutaneous tissue but I cannot see deeper than that, wound does not seem to enter below the subcutaneous tissue. This is vertical and along the side of the joint, likely runs parallel to tendons, does not extend down to joint capsule. Documenting provider has reviewed patient's vital signs: yes Course Course ED Course: Reviewed with patient that we will anesthetize, I will irrigate to ensure no retained foreign body, inspect further to make sure that it is not deeper than what I visualized. We will close with sutures. He agrees to proceed. Vital Signs Vital signs: Initial Vital Signs Temperature 99.5 F 05/06/24 15:41 Temperature Source Temporal Artery Scan 05/06/24 15:41 Pulse Rate 88 05/06/24 15:41 Respiratory Rate 16 05/06/24 15:41 Blood Pressure 103/64 05/06/24 15:41 Blood Pressure Mean 77 05/06/24 15:41 Blood Pressure Position Sitting 05/06/24 15:41 Pulse Oximetry 94 05/06/24 15:41 Oxygen Delivery Method Room Air 05/06/24 15:41 Vital Signs Temperature 99.5 F 05/06/24 15:41 Pulse Rate 88 05/06/24 15:41 Respiratory Rate 16 05/06/24 15:41 Blood Pressure 103/64 05/06/24 15:41 Pulse Oximetry 94 05/06/24 15:41 Oxygen Delivery Method Room Air 05/06/24 15:41 Temperature 99.5 F 05/06/24 15:41 Pulse Rate 88 05/06/24 15:41 Respiratory Rate 16 05/06/24 15:41 Blood Pressure 103/64 05/06/24 15:41 Pulse Oximetry 94 05/06/24 15:41 Oxygen Delivery Method Room Air 05/06/24 15:41 Discharge Plan Discharge Clinical Impression: Laceration of left index finger Qualifiers: Encounter type: initial encounter Damage to nail status: without damage Foreign body presence: without foreign body Qualified Code(s): S61.211A - Laceration without foreign body of left index finger without damage to nail, initial encounter Patient Disposition: Home, Self-Care Condition: Stable Instructions: Finger Laceration (ED) Additional Instructions: May shower and wash hands but should otherwise keep wound clean and dry until wound is healed. Need to schedule a follow-up appointment in about 7-10 days with your primary clinic to assess wound for suture removal. Can use bandages bacitracin for dressing to keep this wound clean during the day or if out in public. If there is concern for infection, please seek re-evaluation. Tetanus is indeed up-to-date in 2019. Prescriptions: No Action duloxetine 20 mg capsule,delayed release(DR/EC) 60 mg PO DAILY Patient Comments: take 3 tabs once a day by mouth gabapentin 300 mg capsule 600 mg PO TID Patient Comments: take 2 capsules three times a day and take 1 capsule at hs if needed finasteride 5 mg tablet 5 mg PO DAILY lisinopril 10 mg tablet 10 mg PO DAILY tamsulosin 0.4 mg capsule 0.8 mg PO DAILY oxybutynin chloride 10 mg tablet extended release 24hr 10 mg PO DAILY Follow Up/Referrals: Hemal Hayward MD [Primary Care Provider] - Stand Alone [facility] Inst[facility] Procedures Laceration Laceration 1: Pre procedure diagnosis: Left index finger laceration Post procedure diagnosis: Same Site marking: not applicable Name of person performing procedure: Nissa Man Site: hand Side (If applicable): left Size (cm): 0.75 Description: linear Depth: simple, single layer Local Anesthetic: lidocaine 1% and with epi Amount of anesthesia used (mL): 3 Pre-repair: wound explored and irrigated extensively Skin layer closed with: other (Ethilon) Size (cm): 4-0 Number of sutures: 3 Technique: simple, interrupted Wound cleansing: sterile water Conclusion: patient tolerated procedure
--- OUTSIDE RECORDS SUMMARY | 2024-05-06 17:30 | XMS_ITS | Data Portability ---
Author Organization [facility] Address [address] [place] [address] Care Team Providers Care Manager Operational Name Role Phone LILITEDENNIS Mcclure Primary Care Provider [phone] Assessment No assessment recorded. Plan of Treatment Reminders Order Date Submit Date Provider Last Modified By Organization Details Last Modified Time Details Appointments None recorded . Lab None recorded . Referral None recorded . Procedures None recorded . Surgeries None recorded . Imaging US, renal 2022 024 [email or web address] [facility], [address], [place], [address], 4 08:55:03 US, renal 2022 024 [email or web address] Not available 4 09:59:32 Medication Orders sildenaf il 100 mg tablet 2022 023 [id number], [address] [place], [place], [id number], 3 11:53:22 oxybutyn in chloride ER 10 mg tablet,e xtended release 24 hr 2022 023 [facility] #[id number], [address] [place], [place], [id number], 3 11:39:19 finaster mariposa 5 mg tablet 2022 023 [facility][id number], [address] [place], [place], [id number], 11:53:08 Patient TargetsNo targets recorded. Patient InstructionsNo instructions recorded. Reason for Referral None Reported. Results Created Date Observation Date Name Description Value Unit Range Abnormal Flag Note LastModifiedBy Organization Detail LastModifiedTime 08/23/19 23 08/21/2022 bladd er scan (PROC ) No observ ation record ed. Not Available 2022 13:53:43 04/21/19 24 04/21/2023 US, renal No observ ation record ed. [facility] [address], [place], [address], 06/06/2023 10:31:40 Result Notes None recorded. Procedures Surgical History Date Name Laterality Status Provider Name and Address Organization Details Recorded Time 01/22/20 Bladder Scan completed Mitch Haque MD [address] [place] [address],[address], [place], [address], [facility] 01/21/2023 11:38:02 08/22/19 23 UroCuff [address] Johana Avitia [facility] 08/21/2022 12:44:05 08/22/19 23 Bladder Scan completed Johana Avitia [facility] 08/21/2022 12:42:55 05/20/19 18 Colonoscopy completed [facility] 05/22/2022 11:37:22 operation on spinal cord completed [facility] 05/22/2022 11:35:38 Cholecystectomy completed [facility] 05/22/2022 11:35:54 operation on intestine completed [facility] 05/22/2022 11:36:07 Imaging Results Imaging Date Name Status LastModified by Organiz ation Details LastModified Time 08/21/2022 bladder scan (PROC) completed Information not available 08/28/2022 13:53:43 04/21/2023 [facility] [address], [place], [address], 06/06/2023 10:31:40 Procedure Notes None recorded. Medical [...] Updated DateTime 05/22/2022 175.26 cm 26.5 kg/m2 46746.75 g Annamarie Garcia [facility] 05/22/2022 11:31:58 Date Recorded Body height Body mass index (BMI) Body weight Provider Name and Address Organization Details Last Updated DateTime 08/28/2022 175.26 cm 26.4 kg/m2 [address]203.[address] [facility] 08/28/2022 11:36:59 Date Recorded Body height Body mass index (BMI) Body weight Provider Name and Address Organization Details Last Updated DateTime 01/21/2023 175.26 cm 25.8 kg/m2 83052.66 g Mitch Haque MD [address], [place], [address], [facility] 01/21/2023 11:37:29 Social History Question Answer Notes LastModified by Organizat ion Details LastModified Time Tobacco Smoking Status [facility]2022 11:35:02 What Is Your Level Of Alcohol Consumption? Occasional [email or web address] Information not available 05/22/2022 How Many Times Per Week Do You Consume Alcohol? Less Than 1 Time Per Week Information not available 08/28/2022 What Is Your Level Of Caffeine Consumption? Moderate [email or web address] Information not available 05/22/2022 Are You Currently Employed? No Information not available 08/28/2022 When Did You Quit Smoking? 16+yearssincel astcigarette [email or web address] Information not available 05/22/2022 Recreational Drug Use No Information not available 08/28/2022 What Was The Date Of Your Most Recent Tobacco Screening? 01/21/2023 Information not available 01/21/2023 Have You Ever Been Counseled For Unhealthy Alcohol Use? No Information not available 08/28/2022 What Is Your Relationship Status? Information not available 08/28/2022 Do You Use Any Illicit Or Recreational Drugs? No [email or web address] Information not available 05/22/2022 Has Tobacco Cessation Counseling Been Provided? No [email or web address] Information not available 05/22/2022 How Many Years Have You Smoked Tobacco? 15 [email or web address] Information not available 05/22/2022 Do You Or Have You Ever Used Any Other Forms Of Tobacco Or Nicotine? No [email or web address] Information not available 05/22/2022 How Many Days In The Past Year Have You Consumed 5 Or More Drinks? 0 Information no t available 08/28/2022 Sex: Unknown Functional Status None recorded. Mental Status None recorded. Family History Relationship Description Onset Age of this Age Resolved Age Notes LastModified by Organization Details LastModified Time Mother Malignant tumor of ovary [email or web address] Not available 2022 11:34:12 Medical History Condition Response Other N High Blood Pressure Y Kidney Stones Y Lung Disease N Depression N GERD/Acid Reflux N Diabetes N Sexually Transmitted Infection N Bleeding Disorder N Cancer N High Cholesterol N Heart Disease N Immunizations Vaccine Type Date Status Note Provider Nam e and Address Organization Details Recorded Time Influenza, adjuvanted, trivalent, PF 8 completed Veda Thomasre null, [facility] 12/04/2022 17:53:07 Influenza, adjuvanted, quadrivalent, PF 1 [facility] 17[facility]53:07 COVID-19, mRNA, LNP-S, PF, 30 mcg/0.3 mL dose 1 [facility] 17:53:07 COVID-19, mRNA, LNP-S, PF, 30 mcg/0.3 mL dose 1 [facility] 17:53:19 COVID-19, mRNA, LNP-S, PF, 30 mcg/0.3 mL dose, bear-sucrose 2 [facility] 17:53:19 COVID-19, mRNA, LNP-S, bivalent, PF, 30 mcg/0.3 mL dose 3 [facility] 17:53:19 pneumococcal polysaccharide PPV23 2 [facility] 17:53:19 Tdap 1 completed Veda Thomasre null, [facility] 12/04/2022 17:53:07 Tdap 9 [facility] 17:53:19 Pneumococcal conjugate PCV 13 6 [facility] 17:53:19 zoster live 3 [facility] 17:53:19 Influenza, high-dose, trivalent, PF 6 [facility] 17:53:07 Influenza, high-dose, trivalent, PF 6 [facility] 17:53:07 Influenza, high-dose, trivalent, PF 9 [facility] 17:53:07 Influenza, high-dose, trivalent, PF 7 [facility] 17:53:07 Influenza, split virus, trivalent, preservative 2 [facility] 17:53:19 Influenza, split virus, trivalent, preservative 3 completed [facility] 17:53:07 Influenza, split virus, trivalent, PF 0 [facility]22 17:53:07 COVID-19, mRNA, LNP-S, PF, 30 mcg/0.3 mL dose 1 [facility] 17:53:19 Past Encounters Encounter ID Performer Location Encounter Start Date Encounter Closed Date Diagnosis/Indication Diagnosis SNOMED-CT Code Diagnosis ICD10 Code Diagnosis Note [id number] Mitch Haque MD [facility] [address] [place] [address] 05/22/2022 11:24:39 05/26/2022 13:58:15 Kidney stone 54567619 N20.0 - Now s/p ESWL and doing great. - We discussed conservati ve management of stones with pain medication s, hydration and medical expulsive therapy vs. surgical interventi on including typical convalesce nce, possible surgical risks and complicati ons. We discussed the potential need for a ureteral stent with lithotrips y procedures . I addressed the possible side effects of ureteral stents and the fact that these are typically removed in the office with flexible cystoscopy under local anesthesia after 1-2 weeks. We discussed the pros and cons of each option and all questions were answered. Will plan to observe residual stone material for now. Crohn's disease 54563094 K50.90 - We discussed the effect of Crohns disease on oxalate reabsorpti on and increased risk for recurrent stones. Slowing of urinary stream 59573598 R39.12 - Add finasterid e to his tamsulosin - Follow up with UroCuffin 3 months [id number] Mitch Haque MD [address] [place] [address] 08/21/2022 11:19:41 08/27/2022 09:39:28 Slowing of urinary stream 79134097 R39.12 - Add finasterid e to his tamsulosin - Follow up with UroCuffin 3 months Kidney stone 22074331 N2 0.0 - Now s/p ESWL and doing great. - We discussed conservati ve management of stones with pain medication s, hydration and medical expulsive therapy vs. surgical interventi on including typical convalesce nce, possible surgical risks and complicati ons. We discussed the potential need for a ureteral stent with lithotrips y procedures . I addressed the possible side effects of ureteral stents and the fact that these are typically removed in the office with flexible cystoscopy under local anesthesia after 1-2 weeks. We discussed the pros and cons of each option and all questions were answered. Will plan to observe residual stone material for now. Crohn's disease 56789369 K50.90 - We discussed the effect of Crohns disease on oxalate reabsorpti on and increased risk for recurrent stones. [id number] MD LOGAN SolRayna [address] [place] [address] 08/28/2022 11:30:01 09/03/2022 13:31:39 Kidney stone 49937131 N20.0 - Now s/p ESWL and doing great. - We discussed conservati ve management of stones with pain medication s, hydration and medical expulsive therapy vs. surgical interventi on including typical convalesce nce, possible surgical risks and complicati ons. We discussed the potential need for a ureteral stent with lithotrips y procedures . I addressed the possible side effects of ureteral stents and the fact that these are typically removed in the office with flexible cystoscopy under local anesthesia after 1-2 weeks. We discussed the pros and cons of each option and all questions were answered. Will plan to observe residual stone material for now. - GIGI in 6 months Crohn's disease 80549546 K50.90 - We discussed the effect of Crohns disease on oxalate reabsorpti on and increased risk for recurrent stones. Slowing of urinary stream 00569967 R39.12 - Add finasterid e to his tamsulosin - UroCuff reviewed, excellent flow Urgent franco yuval to urinate 80925007 R39.15 - UroCuff reviewed, most consistent with detrusor instabilit y - PVR 84 mL - AUA SS: 19 - PSA: 0.27 ng/mL - We discussed the natural history of voiding dysfunctio n including primary bladder outlet obstructio n vs detrusor instabilit y vs combinatio n. We discussed the role of medication s in the management of BPH including alpha blockers, 5-LAYA, and anticholin ergics/bet a agonists including their mechanisms of action. - I would recommend trial of anticholin ergic/beta agonist Nocturia 005247335 R35.1 - As above Increased frequency of urination 005495394 R35.0 - As above Primary er ectile dysfunction 398276997 N52.9 - Previously used sildenafil with good result. [id number] Mitch Haque MD [facility] [address] [place] [address] 01/21/2023 11:13:38 01/22/2023 13:22:18 Kidney stone [id number] N20.0 - Now s/p ESWL and doing great. - We discussed conservati ve management of stones with pain medication s, hydration and medical expulsive therapy vs. surgical interventi on including typical convalesce nce, possible surgical risks and complicati ons. We discussed the potential need for a ureteral stent with lithotrips y procedures . I addressed the possible side effects of ureteral stents and the fact that these are typically removed in the office with flexible cystoscopy under local anesthesia after 1-2 weeks. We discussed the pros and cons of each option and all questions were answered. Will plan to observe residual stone material for now. - GIGI in 3 months Crohn's disease 72608125 K50.90 - We discussed the effect of Crohns disease on oxalate reabsorpti on and increased risk for recurrent stones. Slowing of urinary stream 20134173 R39.12 - Continue tamsulosin + finasterid e- UroCuff reviewed, excellent flow Urgent franco yuval to urinate 56366823 R39.15 - UroCuff reviewed, most consistent with detrusor instabilit y - PVR 84 mL --> 9 mL - AUA SS: 19 --> 9 (2) - PSA: 0.27 ng/mL - We discussed the natural history of voiding dysfunctio n including primary bladder outlet obstructio n vs detrusor instabilit y vs combinatio n. We discussed the role of medication s in the management of BPH including alpha blockers, 5-LAYA, and anticholin ergics/bet a agonists including their mechanisms of action. -Continue anticholin ergic Nocturia 585563820 R35.1 - As above Increased frequency of urination 095026548 R35.0 - As above Primary er ectile dysfunction 856003708 N52.9 - Previously used sildenafil with good result. Health Concerns Section Related Observation LastModified by Organization Detai ls LastModified Time None Recorded Concern Status LastModified by Organization Details LastModified Time None Recorded Advance Directives Directive None Recorded Payers Encounter Date Sequence Insurance Name Policy Number Policy Velasquez Covered Member ID Velasquez Member ID Guarantor Name 05/22/2022 1 [employer] [id number] Osman Murray [id number] Osman Murray 08/21/2022 1 [employer] [employer] [place] [employer] [place] [id number] Osman Christoph Trevor [id number] Osman Murray 08/28/2022 1 [employer] [employer] [place] [employer] [place] [id number] Osman Christoph Trevor [id number] Osman Murray 01/21/2023 1 [employer] [place] [employer] [place] [employer] [id number] Osman Hawthorne Trevor [id number] Osman D Trevor Notes Date Note Type Note Provider Name and Address Organization Details Recorded Time 05/22/2022 text/html Mr. Murray is a [place] pleasant 75 yoM who is referred to [...] reports he is hopeful for another option. 03/06/21Here for f/u nephrolithiasis s/o ESWL 01/23/2021. Since his procedure he reports that he's been doing great. First day post-op he had blood in his urine. Second day he passed a large volume of stone material without difficult. Urination now back to normal. No pain. 06/05/21Here for f/u nephrolithiasis s/o ESWL 01/23/2021. Has been feeling well. Underwent repeat CT to assess residual stone burden. 05/22/2022:Here for follow up history of nephrolithiasis in setting of Crohns disease. Patient underwent a CT A/P for my review and interpretation... there are no left-sided calculi. Within the right renal unit there is a 1 cm lower pole calculus without evidence of hydronephrosis or perinephric fat stranding. Patient also reports significant slowing of his stream. Mitch Haque MD [address], [place], [address], [facility] 05/22/2022 14:29:39 08/28/2022 text/html Mr. Murray is a [place] pleasant 77 yoM who is referred to [...] reports he is hopeful for another option. 03/06/21Here for f/u nephrolithiasis s/o ESWL 01/23/2021. Since his procedure he reports that he's been doing great. First day post-op he had blood in his urine. Second day he passed a large volume of stone material without difficult. Urination now back to normal. No pain. 06/05/21Here for f/u nephrolithiasis s/o ESWL 01/23/2021. Has been feeling well. Underwent repeat CT to assess residual stone burden. 05/22/2022:Here for follow up history of nephrolithiasis in setting of Crohns disease. Patient underwent a CT A/P for my review and interpretation... there are no left-sided calculi. Within the right renal unit there is a 1 cm lower pole calculus without evidence of hydronephrosis or perinephric fat stranding. Patient also reports significant slowing of his stream. 08/28/2022:Here for follow up history of nephrolithiasis in setting of Crohns disease, nocturia, urinary urgency, and slowing of his urinary stream. He completed a UroCuff for my review which good and strong flow pattern with evidence of abdominal straining. 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 Mitch Haque MD [address], [place], [address], [facility] 08/28/2022 13:54:53 01/21/2023 text/html Mr. Murray is a [place] pleasant 77 yoM who is referred to [...] reports he is hopeful for another option. 03/06/21Here for f/u nephrolithiasis s/o ESWL 01/23/2021. Since his procedure he reports that he's been doing great. First day post-op he had blood in his urine. Second day he passed a large volume of stone material without difficult. Urination now back to normal. No pain. 06/05/21Here for f/u nephrolithiasis s/o ESWL 01/23/2021. Has been feeling well. Underwent repeat CT to assess residual stone burden. 05/22/2022:Here for follow up history of nephrolithiasis in setting of Crohns disease. Patient underwent a CT A/P for my review and interpretation... there are no left-sided calculi. Within the right renal unit there is a 1 cm lower pole calculus without evidence of hydronephrosis or perinephric fat stranding. Patient also reports significant slowing of his stream. 08/28/2022:Here for follow up history of nephrolithiasis in setting of Crohns disease, nocturia, urinary urgency, and slowing of his urinary stream. He completed a UroCuff for my review which good and strong flow pattern with evidence of abdominal straining. 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 01/21/2023:Here for follow up history of nephrolithiasis in setting of Crohns disease, nocturia, urinary urgency, and slowing of his urinary stream. Trial of anticholinergic has significantly improved his urination. Mitch Haque MD [address], [place], [address], [facility] 01/21/2023 11:48:39
--- OUTSIDE RECORDS SUMMARY | 2024-05-06 17:30 | XMS_ITS | Clinical Summary ---
Author Organization [employer] [facility] Address [address] [place] [address] Care Team Providers Care Scales Inspector Name Role Phone Sourav Anderson MD Unavailable [phone] GadekJerome MD Unavailable [phone] VoteHemal bowles MD Primary Care Provider + [...] Care Team Description 03/24/2024 10:50 AM TANK PUMPER PANELBOARD Office Visit [facility] [address] [place] [address] Hemal Hayward MD Medication Management; Immunization/Injectio n 03/24/2024 Travel 03/22/2024 Telephone [facility] [address] [place] [address] Hemal Hayward MD Medication Management from Last 3 Months Immunizations Immunization Administration Dates Next Due COVID-19 vaccine (Pfizer-Bio NTech 30mcg/0.3mL) 12YO+ BIVALENT PF, MDV 05/14/2022 COVID-19 vaccine (VideoClix-Bio NTech 30mcg/0.3mL) 12YO+ GALO-SUCROSE PF, MDV 07/24/2021 COVID-19 vaccine (VideoClix-Bio NTech 30mcg/0.3mL) PF, MDV 04/21/2020,03/31/2020 Influenza, High-dose [...] file Legal Sex Male 8:28 AM TANK PUMPER PANELBOARD Gender Identity Male 02/26/2020 12:32 PM TANK PUMPER PANELBOARD Sexual Orientation Straight 02/26/2020 12 :32 PM TANK PUMPER PANELBOARD Occupation Industry Job Start Date Job End Date retired Not on file Not on file 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 file Not on file Not on file Obstetrics History Last Filed Vital Signs Vital Sign Reading Time Taken Comments Blood Pressure 98/64 03/24/2024 11:03 AM TANK PUMPER PANELBOARD Pulse 68 03/24/2024 11:03 AM TANK PUMPER PANELBOARD Temperature 36.7 C (98 F) 03/17/2023 8:55 AM TANK PUMPER PANELBOARD Respiratory Rate 18 03/06/2021 2:40 PM TANK PUMPER PANELBOARD Oxygen Saturation 98% 03/24/2024 11: 03 AM TANK PUMPER PANELBOARD Inhaled Oxygen Concentration - - Weight 83.9 kg (184 lb 14.4 oz) 025 11:03 AM TANK PUMPER PANELBOARD Height 172.5 cm (5' 7.9) 03/24/2024 11 :03 AM TANK PUMPER PANELBOARD Body Mass Index 28.2 03/24/2024 11:03 AM TANK PUMPER PANELBOARD Plan of Treatment Health Maintenance Due Date [...] history exists Medical Devices 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 Device Identifier Shelf Expiration Date Model / Serial / Lot [id number] 6bone Cerv 7mm 4 Deg Levant W/P Implanted:Qty: 1 on 06/19/2020 by Adrian Perera MD at [facility] Explanted:at [facility] (Quantity not on file) N/A: Spine Jennifer Spine 01/16/2025 [id number] / [id number] / [id number] 3bone Cerv 7mm 4 Deg Levant W/P Implanted:Qty: 1 on 06/19/2020 by Adrian Perera MD at [facility] Explanted:at [facility] (Quantity not on file) N/A: Spine Levant Spine 01/31/2025 [id number] / [id number] / [id number] 6bone Cerv 7mm 4 Deg Levant W/P Implanted:Qty: 1 on 06/19/2020 by Adrian Perera MD at [facility] Explanted:at [facility] (Quantity not on file) N/A: Spine Jennifer Spine 03/15/2025 [id number] / [id number] / [id number] one Matrix 1cc Bureau Plus Paste Dbm Implanted:Qty: 1 on 06/19/2020 by Adrian Perera MD at [facility] Explanted:at [facility] (Quantity not on file) N/A: Spine Medtronic Spine/Ortho 11/02/2024 [id number] / [id number] / Plate Loup 3 Lvl 63mm Implanted:Qty: 1 on 06/19/2020 by Adrian Perera MD at [facility] N/A: Spine [id number] / / Description:PLATE OZARK 3 LV L 63MM Screw Loup 4.0 X 14 Implanted:Qty: 8 on 06/19/2020 by Adrian Perera MD at [facility] N/A: Spine [id number] / / Description:SCREW OZARK 4.0 X 14 Procedures Procedure Name Priority Date/Time Associated Diagnosis Comments CBC WITH AUTO DIFFERENTIAL Routine 03/24/2024 12:12 PM TANK PUMPER PANELBOARD Idiopathic neuropathy BASIC METABOLIC PANEL Routine 03/24/2024 12:12 PM TANK PUMPER PANELBOARD Unspecified essential hypertension ALT (SGPT) Routine 03/24/2024 12:12 PM TANK PUMPER PANELBOARD Screening cholesterol level LIPID PANEL W REFLEX MEASURED LDL Routine 03/24/2024 12:12 PM TANK PUMPER PANELBOARD Screening cholesterol level VITAMIN D 25 (DEFICIENCY) Routine 03/24/2024 12:12 PM TANK PUMPER PANELBOARD Vitamin D deficiency PSA TOTAL Routine 03/24/2024 12:12 PM TANK PUMPER PANELBOARD Screening PSA (prostate specific antigen) ANTI HCV Routine 01/10/2016 3:13 PM TANK PUMPER PANELBOARD Need for hepatitis C screening test from Last 3 Months or Most Recently Relevant to Health Maintenance Results * (ABNORMAL) LIPID PANEL W REFLEX MEASURED LDL (03/24/2024 12:12 PM TANK PUMPER PANELBOARD) CHOLESTEROL, TOTAL 174 <200 mg/dL [facility] HDL CHOLESTEROL 38(L) > OR = 40 mg/dL [facility] TRIGLYCERIDES 195(H) <150 mg/dL [facility] LDL-CHOLESTEROL 105(H) mg/dL (calc) [place] [facility] Comment: Reference range: <100 Desirable range <100 mg/dL for primary prevention; <70 mg/dL for patients with CHD or diabetic patients with > or = 2 CHD risk factors. LDL-C is now calculated using the Rocio calculation, which is a validated novel method providing better accuracy than the Friedewald equation in the estimation of LDL-C. Jerome BRAR et al. MECHELLE. 2013;310(19): 7215-6734 (http://education.[employer]/faq/OZS538) CHOL/HDLC RATIO 4.6 <5.0 (calc) [facility] NON HDL CHOLESTEROL 136(H) <130 mg/dL (calc) [place] [employer] Comment: For patients with diabetes plus 1 major ASCVD risk factor, treating to a non-HDL-C goal of <100 mg/dL (LDL-C of <70 mg/dL) is considered a therapeutic option. Blood BLOOD SPECIMEN / Unknown 03/24/2024 12:12 PM TANK PUMPER PANELBOARD 03/24/2024 12:13 PM TANK PUMPER PANELBOARD Hemal Hayward MD CHEMISTRY Final Re sult [facility] [address] [place] [address], [facility] [address] [place] [address] * VITAMIN D 25 (DEFICIENCY) (03/24/2024 12:12 PM TANK PUMPER PANELBOARD) VITAMIN D,25-OH,TOTAL,IA 37 30 - 100 ng/mL [facility] Comment: Vitamin D Status 25-OH Vitamin D: Deficiency: <20 ng/mL Insufficiency: 20 - 29 ng/mL Optimal: > or = 30 ng/mL For 25-OH Vitamin D testing on patients on D2-supplementation and patients for whom quantitation of D2 and D3 fractions is required, the [facility](TM) 25-OH VIT D, (D2,D3), LC/MS/MS is recommended: order code 11662 (patients >2yrs). See Note 1 Note 1 For additional information, please refer to http://education.[employer]/faq/PFE180 (This link is being provided for informational/ educational purposes only.) Blood BLOOD SPECIMEN / Unknown 03/24/2024 12:12 PM TANK PUMPER PANELBOARD 03/24/2024 12:13 PM TANK PUMPER PANELBOARD Hemal Hayward MD SEND OUTS Final Re sult [facility] [address] [place] [address], [facility] [address] [place] [address] * (ABNORMAL) CBC AND DIFFERENTIAL (03/24/2024 12:12 PM TANK PUMPER PANELBOARD) Pathologist [facility] WHITE BLOOD CELL COUNT 5.8 3.8 - [...] 850 - 3,900 cells/uL [facility] ABSOLUTE MONOCYTES 528 200 - 950 cells/uL [facility] ABSOLUTE EOSINOPHILS 151 15 - 500 cells/uL [facility] ABSOLUTE BASOPHILS 29 0 - 200 cells/uL [facility] NEUTROPHILS 68.6 % [facility] LYMPHOCYTES 19.2 % [facility] MONOCYTES 9.1 % [facility] EOSINOPHILS 2.6 % [facility] BASOPHILS 0.5 % [facility] Blood BLOOD SPECIMEN / Unknown 03/24/2024 12:12 PM TANK PUMPER PANELBOARD 03/24/2024 12:13 PM TANK PUMPER PANELBOARD Hemal Hayward MD HEMATOLOGY Final Re sult [facility] [address] [place] [address], [place] [phone] [facility] [address] [facility] [address] * ALT (SGPT) (03/24/2024 12:12 PM TANK PUMPER PANELBOARD) ALT 22 9 - 46 U/L [facility] Blood BLOOD SPECIMEN / Unknown 03/24/2024 12:12 PM TANK PUMPER PANELBOARD 03/24/2024 12:13 PM TANK PUMPER PANELBOARD Hemal Hayward MD CHEMISTRY Final Re sult [facility] [address] [facility] [address], [place] [phone] [facility] [address] [place] [address] * PSA TOTAL (DIAG OR SCREEN) (03/24/2024 12:12 PM TANK PUMPER PANELBOARD) PSA, TOTAL 0.25 < OR = 4.00 ng/mL [facility] Comment: The total PSA value from this assay system is standardized against the WHO standard. The test result will be approximately 20% lower when compared to the equimolar-standardized total PSA (Vivian Randolph). Comparison of serial PSA results should be interpreted with this fact in mind. This test was performed using the Siemens chemiluminescent method. Values obtained from different assay methods cannot be used interchangeably. PSA levels, regardless of value, should not be interpreted as absolute evidence of the presence or absence of disease. Blood BLOOD SPECIMEN / Unknown 03/24/2024 12:12 PM TANK PUMPER PANELBOARD 03/24/2024 12:13 PM TANK PUMPER PANELBOARD Hemal Hayward MD CHEMISTRY Final Re sult [facility] [address] [place] [address], [facility] [address] [place] [address] * (ABNORMAL) BASIC METABOLIC PANEL (03/24/2024 12:12 PM TANK PUMPER PANELBOARD) Pathologist [facility] GLUCOSE 108(H) 65 - 99 mg/dL [facility] Comment: Fasting reference interval For someone without known diabetes, a glucose value between 100 and 125 mg/dL is consistent with prediabetes and should be confirmed with a follow-up test. UREA NITROGEN (BUN) 23 7 - 25 mg/dL [facility] CREATININE 1.32(H) 0.70 - 1.28 mg/dL [facility] EGFR 55(L) > OR = 60 mL/min/1.7 3m2 [facility] BUN/CREATININE RATIO 17 6 - 22 (calc) [facility] SODIUM 140 135 - 146 mmol/L [facility] POTASSIUM 4.6 3.5 - 5.3 [...] SPECIMEN / Unknown 03/24/2024 12:12 PM TANK PUMPER PANELBOARD 03/24/2024 12:13 PM TANK PUMPER PANELBOARD Hemal Hayward MD CHEMISTRY Final Re sult [facility] [address] [place] [address], [facility] [address] [place] [address] * ANTI HCV [07346.2] (01/10/2016 3:13 PM TANK PUMPER PANELBOARD) HEPATITIS C ANTIBODY Non-Reacti ve Non-Reacti ve 01/10/2016 10:04 PM TANK PUMPER PANELBOARD [facility] Blood BLOOD SPECIMEN / Unknown Venipuncture / Unknown 01/10/2016 3:13 PM TANK PUMPER PANELBOARD 01/10/2016 3:13 PM TANK PUMPER PANELBOARD Narrative [facility] - 01/10/2016 10:04 PM TANK PUMPER PANELBOARD Antibodies to HCV not detected; does not exclude the possibility of exposure to HCV. Travis Hyde MD SEND OUTS Final Re sult [facility] [address] [place] [address], [place] from Last 3 Months or Most Recently Relevant to Health Maintenance Insurance MEDICARE PART A HB ONLY [employer] [employer] MR PB ONLY [employer] [place] [employer] HB ONLY Advance Directives * Full Code (Latest Code Status on File) Date Activated Date Inactivated Comments 06/19/2020 5:20 PM 06/21/2020 2:27 PM Question Answer Comments Code Status Discussion: Not Discussed * Full Code Date Activated Date Inactivated Comments 09/09/2014 4:21 PM 09/12/2014 2:13 PM Question Answer Comments Code Status Discussion: Discussed Care Teams Scales Inspector Relationship Specialty Start Date End Date Votel, Hemal Jensen MD [address] [place] [address] PCP - General Family Practice 06/23/22 Sourav Anderson MD [address] [place] [address] Sports Medicine 06/29/12 Jerome Mccartney MD [address] [place] [address] Gastroenterology 06/29/12
[2024-05-06 17:35] VITALS: BP 124/85; PULSE 72; RESP 18; O2SAT 94
== END 2024-05-06 17:50 | disposition home or self-care (01) ==
PROVIDERS: Emergency Provider Family Medicine; PCP Family Medicine
DX: S61.211A Laceration without foreign body of left index finger without damage to nail, initial encounter (principal); W19.XXXA Unspecified fall, initial encounter
CPT/HCPCS: 12001; 99283

== ENCOUNTER 2024-05-28 01:32 | Observation (INO) | payer MEDICARE, BC, SELFPAY ==
[2024-05-28] VITALS (8 sets, daily range): BP systolic 105–118; BP diastolic 63–71; PULSE 58–79; RESP 16–18; TEMP 36.6–36.9; O2SAT 93–99; BMI 26.1; BMI 26.3
--- OUTSIDE RECORDS SUMMARY | 2024-05-28 01:35 | XMS_ITS | Data Portability ---
Author Organization [facility], [facility] Address [address] [place] [address] Care Team Providers Care Level Vial Inspector Name Role Phone LILITEDENNIS Mcclure Primary Care Provider [phone] Assessment No assessment recorded. Plan of Treatment Reminders Order Date Submit Date Provider Last Modified By Organization Details Last Modified Time Details Appointments None recorded . Lab None recorded . Referral None recorded . Procedures None recorded . Surgeries None recorded . Imaging US, renal 2022 024 [email or web address] [facility], [address], [place], [address], 4 08:55:03 US, renal 2022 024 [email or web address] Not available 4 09:59:32 Medication Orders sildenaf il 100 mg tablet 2022 023 [facility] [employer] #[id number], [address] [place], [place], [id number], 3 11:53:22 oxybutyn in chloride ER 10 mg tablet,e xtended release 24 hr 2022 023 [facility] [employer] #[id number], [address] [place], [place], [id number], 3 11:39:19 finaster mariposa 5 mg tablet 2022 023 [facility] [employer] #[id number], [address] [place], [place], [phone], 11:53:08 Patient TargetsNo targets recorded. Patient InstructionsNo instructions recorded. Reason for Referral None Reported. Results Created Date Observation Date Name Description Value Unit Range Abnormal Flag Note LastModifiedBy Organization Detail LastModifiedTime 08/23/19 23 08/21/2022 bladd er scan (PROC ) No observ ation record ed. Not Available 2022 13:53:43 04/21/19 24 04/21/2023 US, renal No observ ation record ed. [facility] [address], [place], [address], 06/06/2023 10:31:40 Result Notes None recorded. Procedures Surgical History Date Name Laterality Status Provider Name and Address Organization Details Recorded Time 01/22/20 Bladder Scan completed Mitch Haque MD [address] [place] [address],[address], [place], [address], [facility] 01/21/2023 11:38:02 08/22/19 23 UroCuff [address] Johana Avitia [facility] 08/21/2022 12:44:05 08/22/19 23 Bladder Scan completed Johana Avitia [facility] 08/21/2022 12:42:55 05/20/19 18 Colonoscopy completed [facility] 05/22/2022 11:37:22 operation on spinal cord completed [facility] 05/22/2022 11:35:38 Cholecystectomy completed [facility] 05/22/2022 11:35:54 operation on intestine completed [facility] 05/22/2022 11:36:07 Imaging Results Imaging Date Name Status LastModified by Organiz ation Details LastModified Time 08/21/2022 bladder scan (PROC) completed Information not available 08/28/2022 13:53:43 04/21/2023 [facility] [address], [place], [address], 06/06/2023 10:31:40 Procedure Notes None recorded. Medical [...] Updated DateTime 05/22/2022 175.26 cm 26.5 kg/m2 14541.[address] [facility] 05/22/2022 11:31:58 Date Recorded Body height Body mass index (BMI) Body weight Provider Name and Address Organization Details Last Updated DateTime 08/28/2022 175.26 cm 26.4 kg/m2 31981.[address] [facility] 08/28/2022 11:36:59 Date Recorded Body height Body mass index (BMI) Body weight Provider Name and Address Organization Details Last Updated DateTime 01/21/2023 175.26 cm 25.8 kg/m2 95912.66 g Mitch Haque MD [address], [place], [address], [facility] 01/21/2023 11:37:29 Social History Question Answer Notes LastModified by Organizat ion Details LastModified Time Tobacco Smoking Status [facility]2022 11:35:02 What Is Your Level Of Alcohol Consumption? Occasional [email or web address] Information not available 05/22/2022 How Many Times Per Week Do You Consume Alcohol? Less Than 1 Time Per Week Information not available 08/28/2022 What Is Your Level Of Caffeine Consumption? Moderate [email or web address] Information not available 05/22/2022 Are You Currently Employed? No Information not available 08/28/2022 When Did You Quit Smoking? 16+yearssincel astcigarette [email or web address] Information not available 05/22/2022 Recreational Drug Use No Information not available 08/28/2022 What Was The Date Of Your Most Recent Tobacco Screening? 01/21/2023 Information not available 01/21/2023 Have You Ever Been Counseled For Unhealthy Alcohol Use? No Information not available 08/28/2022 What Is Your Relationship Status? Information not available 08/28/2022 Do You Use Any Illicit Or Recreational Drugs? No [email or web address] Information not available 05/22/2022 Has Tobacco Cessation Counseling Been Provided? No [email or web address] Information not available 05/22/2022 How Many Years Have You Smoked Tobacco? 15 [email or web address] Information not available 05/22/2022 Do You Or Have You Ever Used Any Other Forms Of Tobacco Or Nicotine? No [email or web address] Information not available 05/22/2022 How Many Days In The Past Year Have You Consumed 5 Or More Drinks? 0 Information no t available 08/28/2022 Sex: Unknown Functional Status None recorded. Mental Status None recorded. Family History Relationship Description Onset Age of this Age Resolved Age Notes LastModified by Organization Details LastModified Time Mother Malignant tumor of ovary [email or web address] Not available 2022 11:34:12 Medical History Condition Response Diabetes N Sexually Transmitted Infection N Other N Bleeding Disorder N High Blood Pressure Y Kidney Stones Y Cancer N Lung Disease N Depression N High Cholesterol N GERD/Acid Reflux N Heart Disease N Immunizations Vaccine Type Date Status Note Provider Nam e and Address Organization Details Recorded Time Influenza, adjuvanted, trivalent, PF 8 completed Veda Thomasre null, [facility] 12/04/2022 17:53:07 Influenza, adjuvanted, quadrivalent, PF 1 [facility] 17:53:07 COVID-19, mRNA, LNP-S, PF, 30 mcg/0.3 mL dose 1 [facility] 17:53:07 COVID-19, mRNA, LNP-S, PF, 30 mcg/0.3 mL dose 1 [facility]22 17:53:19 COVID-19, mRNA, LNP-S, PF, 30 mcg/0.3 mL dose, bear-sucrose 2 completed [facility]2022 17:53:19 COVID-19, mRNA, LNP-S, bivalent, PF, 30 mcg/0.3 mL dose 3 completed [facility]2022 17:53:19 pneumococcal polysaccharide PPV23 2 completed [facility]2022 17:53:19 Tdap 1 completed Veda Thomasre null, [facility] 12/04/2022 17:53:07 Tdap 9 completed [facility]2022 17:53:19 Pneumococcal conjugate PCV 13 6 [facility]2022 17:53:19 zoster live 3 completed [facility]2022 17:53:19 Influenza, high-dose, trivalent, PF 6 completed [facility]/2022 17:53:07 Influenza, high-dose, trivalent, PF 6 [facility]22 17:53:07 Influenza, high-dose, trivalent, PF 9 [facility]/2022 17:53:07 Influenza, high-dose, trivalent, PF 7 [facility]2022 17:53:07 Influenza, split virus, trivalent, preservative 2 completed [facility]/2022 17:53:19 Influenza, split virus, trivalent, preservative 3 completed [facility] 12/04/2022 17:53:07 Influenza, split virus, trivalent, PF 0 [facility]/2022 17:53:07 COVID-19, mRNA, LNP-S, PF, 30 mcg/0.3 mL dose 1 [facility]/2022 17:53:19 Past Encounters Encounter ID Performer Location Encounter Start Date Encounter Closed Date Diagnosis/Indication Diagnosis SNOMED-CT Code Diagnosis ICD10 Code Diagnosis Note [id number] Mitch Haque MD [facility] [address] [place] [address] 05/22/2022 11:24:39 05/26/2022 13:58:15 Kidney stone 45411890 N20.0 - Now s/p ESWL and doing [...] residual stone material for now. Crohn's disease 48411677 K50.90 - We discussed the effect of Crohns disease on oxalate reabsorpti on and increased risk for recurrent stones. Slowing of urinary stream 32088934 R39.12 - Add finasterid e to his tamsulosin - Follow up with UroCuffin 3 months [id number] Mitch Haque MD [address] [place] [address] 08/21/2022 11:19:41 08/27/2022 09:39:28 Slowing of urinary stream 46819541 R39.12 - Add finasterid e to his tamsulosin - Follow up with UroCuffin 3 months Kidney stone 09934687 N2 0.0 - Now s/p ESWL and [...] residual stone material for now. Crohn's disease 41217148 K50.90 - We discussed the effect of Crohns disease on oxalate reabsorpti on and increased risk for recurrent stones. [id number] MD LOGAN SolRayna [address] [address] 08/28/2022 11:30:01 09/03/2022 13:31:39 Kidney stone 19334266 N20.0 - Now s/p ESWL and doing [...] - GIGI in 6 months Crohn's disease 21255822 K50.90 - We discussed the effect of Crohns disease on oxalate reabsorpti on and increased risk for recurrent stones. Slowing of urinary stream 71285439 R39.12 - Add finasterid e to his tamsulosin - UroCuff reviewed, excellent flow Urgent franco yuval to urinate 56344684 R39.15 - UroCuff reviewed, most consistent with [...] recommend trial of anticholin ergic/beta agonist Nocturia 033378409 R35.1 - As above Increased frequency of urination 981759451 R35.0 - As above Primary er ectile dysfunction 623064142 N52.9 - Previously used sildenafil with good result. [id number] Mitch Haque MD [facility] [address] [place] [address] 01/21/2023 11:13:38 01/22/2023 13:22:18 Kidney stone 12775653 N20.0 - Now s/p ESWL and doing [...] - GIGI in 3 months Crohn's disease 71406449 K50.90 - We discussed the effect of Crohns disease on oxalate reabsorpti on and increased risk for recurrent stones. Slowing of urinary stream 34660811 R39.12 - Continue tamsulosin + finasterid e- UroCuff reviewed, excellent flow Urgent franco yuval to urinate 14329413 R39.15 - UroCuff reviewed, most consistent with [...] mechanisms of action. -Continue anticholin ergic Nocturia 673771892 R35.1 - As above Increased frequency of urination 454051710 R35.0 - As above Primary er ectile dysfunction 733258430 N52.9 - Previously used sildenafil with good result. Health Concerns Section Related Observation LastModified by Organization Detai ls LastModified Time None Recorded Concern Status LastModified by Organization Details LastModified Time None Recorded Advance Directives Directive None Recorded Payers Encounter Date Sequence Insurance Name Policy Number Policy Velasquez Covered Member ID Velasquez Member ID Guarantor Name 05/22/2022 1 [employer] [id number] Osman Murray [id number] Osman Murray 08/21/2022 1 [place]ST [id number] Osman Christoph Trevor [id number] Osman Murray 08/28/2022 1 [place] [id number] Osman Christoph Trevor [id number] Osman Murray 01/21/2023 1 [place] [id number] Osman Hawthorne Trevor [id number] Osman D Trevor Notes Date Note Type [...] of his stream. Mitch Haque MD [address], [place], [address], [facility] 05/22/2022 14:29:39 08/28/2022 text/html Mr. Murray [...] of detrusor instability. Mitch Haque MD [address], [place], [address], [facility] 08/28/2022 13:54:53 01/21/2023 text/html Mr. Murray is a v ky pleasant 77 yoM who is referred to me by his PCP, Surya RCANDALL, regarding ureteral calculus. Patient was being work [...] improved his urination. Mitch Haque MD [address], [place], [address], [facility] 01/21/2023 11:48:39
--- OUTSIDE RECORDS SUMMARY | 2024-05-28 01:35 | XMS_ITS | Clinical Summary ---
Author Organization [employer] [facility] Address [address] [place] [id number] Care Team Providers Care Furniture Mechanic Name Role Phone Sourav Anderson MD Unavailable [phone] GadekJerome MD Unavailable [phone] VoteHemal bowles MD Primary Care Provider + [...] Department Care Team Description 03/24/2024 10:50 AM INFRASTRUCTURE SOFTWARE ENGINEER Office Visit [facility] [address] [place] [address] Hemal Hayward MD Medication Management; Immunization/Injectio n 03/24/2024 Travel 03/22/[address] [facility] [address] [place] [address] Hemal Hayward MD Medication Management from Last 3 Months Immunizations Immunization Administration Dates Next Due COVID-19 vaccine (Pfizer-Bio NTech 30mcg/0.3mL) 12YO+ BIVALENT PF, MDV 05/14/2022 COVID-19 vaccine (Ringadoc-Bio NTech 30mcg/0.3mL) 12YO+ GALO-SUCROSE PF, MDV 07/24/2021 COVID-19 vaccine (Ringadoc-Bio NTech 30mcg/0.3mL) PF, MDV 04/21/2020,03/31/2020 Influenza, High-dose [...] on file Legal Sex Male 8:28 AM INFRASTRUCTURE SOFTWARE ENGINEER Gender Identity Male 02/26/2020 12:32 PM INFRASTRUCTURE SOFTWARE ENGINEER Sexual Orientation Straight 02/26/2020 12 :32 PM INFRASTRUCTURE SOFTWARE ENGINEER Occupation Industry Job Start Date Job End Date retired Not on file Not on file 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 file Not on file Not on file Obstetrics History Last Filed Vital Signs Vital Sign Reading Time Taken Comments Blood Pressure 98/64 03/24/2024 11:03 AM INFRASTRUCTURE SOFTWARE ENGINEER Pulse 68 03/24/2024 11:03 AM INFRASTRUCTURE SOFTWARE ENGINEER Temperature 36.7 C (98 F) 03/17/2023 8:55 AM INFRASTRUCTURE SOFTWARE ENGINEER Respiratory Rate 18 03/06/2021 2:40 PM INFRASTRUCTURE SOFTWARE ENGINEER Oxygen Saturation 98% 03/24/2024 11: 03 AM INFRASTRUCTURE SOFTWARE ENGINEER Inhaled Oxygen Concentration - - Weight 83.9 kg (184 lb 14.4 oz) 025 11:03 AM INFRASTRUCTURE SOFTWARE ENGINEER Height 172.5 cm (5' 7.9) 03/24/2024 11 :03 AM INFRASTRUCTURE SOFTWARE ENGINEER Body Mass Index 28.2 03/24/2024 11:03 AM INFRASTRUCTURE SOFTWARE ENGINEER Plan of Treatment Health Maintenance Due Date [...] history exists Medical Devices Implanted Type Area Associate Teacher Device Identifier Shelf Expiration Date Model / Serial / Lot [id number] 6bone Cerv 7mm 4 Deg [place] W/P Implanted:Qty: 1 on 06/19/2020 by Adrian Perera MD at [facility] Explanted:at [facility] (Quantity not on file) N/A: Spine Jennifer Spine 01/16/2025 [id number] / [id number] / [id number] 3bone Cerv 7mm 4 Deg [place] W/P Implanted:Qty: 1 on 06/19/2020 by Adrian Perera MD at [facility] Explanted:at [facility] (Quantity not on file) N/A: Spine [place] Spine 01/31/2025 [id number] / [id number] / [id number] 6bone Cerv 7mm 4 Deg [place] W/P Implanted:Qty: 1 on 06/19/2020 by Adrian Perera MD at [facility] Explanted:at [facility] (Quantity not on file) N/A: Spine Jennifer Spine 03/15/2025 [id number] / [id number] / [id number] one Matrix 1cc [place] Plus Paste Dbm Implanted:Qty: 1 on 06/19/2020 by Adrian Perera MD at [facility] Explanted:at [facility] (Quantity not on file) N/A: Spine Medtronic Spine/Ortho 11/02/2024 [id number] / [id number] / Plate Gem 3 Lvl 63mm Implanted:Qty: 1 on 06/19/2020 by Adrian Perera MD at [facility] N/A: Spine [id number] / / Description:PLATE OZARK 3 LV L 63MM Screw Gem 4.0 X 14 Implanted:Qty: 8 on 06/19/2020 by Adrian Perera MD at [facility] N/A: Spine [id number] / / Description:SCREW OZARK 4.0 X 14 Procedures Procedure Name Priority Date/Time Associated Diagnosis Comments CBC WITH AUTO DIFFERENTIAL Routine 03/24/2024 12:12 PM INFRASTRUCTURE SOFTWARE ENGINEER Idiopathic neuropathy BASIC METABOLIC PANEL Routine 03/24/2024 12:12 PM INFRASTRUCTURE SOFTWARE ENGINEER Unspecified essential hypertension ALT (SGPT) Routine 03/24/2024 12:12 PM INFRASTRUCTURE SOFTWARE ENGINEER Screening cholesterol level LIPID PANEL W REFLEX MEASURED LDL Routine 03/24/2024 12:12 PM INFRASTRUCTURE SOFTWARE ENGINEER Screening cholesterol level VITAMIN D 25 (DEFICIENCY) Routine 03/24/2024 12:12 PM INFRASTRUCTURE SOFTWARE ENGINEER Vitamin D deficiency PSA TOTAL Routine 03/24/2024 12:12 PM INFRASTRUCTURE SOFTWARE ENGINEER Screening PSA (prostate specific antigen) ANTI HCV Routine 01/10/2016 3:13 PM INFRASTRUCTURE SOFTWARE ENGINEER Need for hepatitis C screening test from Last 3 Months or Most Recently Relevant to Health Maintenance Results * (ABNORMAL) LIPID PANEL W REFLEX MEASURED LDL (03/24/2024 12:12 PM INFRASTRUCTURE SOFTWARE ENGINEER) CHOLESTEROL, TOTAL 174 <200 mg/dL [facility] HDL CHOLESTEROL 38(L) > OR = 40 mg/dL [facility] TRIGLYCERIDES 195(H) <150 mg/dL [facility] LDL-CHOLESTEROL 105(H) mg/dL (calc) [employer] [facility] Comment: Reference range: <100 Desirable range <100 mg/dL for primary prevention; <70 mg/dL for patients with CHD or diabetic patients with > or = 2 CHD risk factors. LDL-C is now calculated using the Rocio calculation, which is a validated novel method providing better accuracy than the Friedewald equation in the estimation of LDL-C. Jerome BRAR et al. MECHELLE. 2013;310(19): 9925-7740 (http://education.[employer]/faq/CDI327) CHOL/HDLC RATIO 4.6 <5.0 (calc) [facility] NON HDL CHOLESTEROL 136(H) <130 mg/dL (calc) [employer] [facility] Comment: For patients with diabetes plus 1 major ASCVD risk factor, treating to a non-HDL-C goal of <100 mg/dL (LDL-C of <70 mg/dL) is considered a therapeutic option. Blood BLOOD SPECIMEN / Unknown 03/24/2024 12:12 PM INFRASTRUCTURE SOFTWARE ENGINEER 03/24/2024 12:13 PM INFRASTRUCTURE SOFTWARE ENGINEER Hemal Hayward MD CHEMISTRY Final Re sult [employer] [address] [place] [address], [facility] [address] [place] [address] * VITAMIN D 25 (DEFICIENCY) (03/24/2024 12:12 PM INFRASTRUCTURE SOFTWARE ENGINEER) VITAMIN D,25-OH,TOTAL,IA 37 30 - 100 ng/mL [facility] Comment: Vitamin D Status 25-OH Vitamin D: Deficiency: <20 ng/mL Insufficiency: 20 - 29 ng/mL Optimal: > or = 30 ng/mL For 25-OH Vitamin D testing on patients on D2-supplementation and patients for whom quantitation of D2 and D3 fractions is required, the [facility](TM) 25-OH VIT D, (D2,D3), LC/MS/MS is recommended: order code 09590 (patients >2yrs). See Note 1 Note 1 For additional information, please refer to http://education.[employer]/faq/SFC986 (This link is being provided for informational/ educational purposes only.) Blood BLOOD SPECIMEN / Unknown 03/24/2024 12:12 PM INFRASTRUCTURE SOFTWARE ENGINEER 03/24/2024 12:13 PM INFRASTRUCTURE SOFTWARE ENGINEER Hemal Hayward MD SEND OUTS Final Re sult [employer] [address] [place] [address], [facility] [address] [place] [address] * (ABNORMAL) CBC AND DIFFERENTIAL (03/24/2024 12:12 PM INFRASTRUCTURE SOFTWARE ENGINEER) Pathologist [facility] WHITE BLOOD CELL COUNT 5.8 3.8 - [...] BLOOD SPECIMEN / Unknown 03/24/2024 12:12 PM INFRASTRUCTURE SOFTWARE ENGINEER 03/24/2024 12:13 PM INFRASTRUCTURE SOFTWARE ENGINEER Hemal Hayward MD HEMATOLOGY Final Re sult [facility] [address] [place] [address], [place] [phone] [facility] [address] [place] [address] * ALT (SGPT) (03/24/2024 12:12 PM INFRASTRUCTURE SOFTWARE ENGINEER) ALT 22 9 - 46 U/L [facility] Blood BLOOD SPECIMEN / Unknown 03/24/2024 12:12 PM INFRASTRUCTURE SOFTWARE ENGINEER 03/24/2024 12:13 PM INFRASTRUCTURE SOFTWARE ENGINEER Hemal Hayward MD CHEMISTRY Final Re sult [facility] [address] [facility] [place] [address], [place] [phone] [facility] [address] [place] [address] * PSA TOTAL (DIAG OR SCREEN) (03/24/2024 12:12 PM INFRASTRUCTURE SOFTWARE ENGINEER) PSA, TOTAL 0.25 < OR = 4.00 ng/mL [employer]bon[facility] Comment: The total PSA value from this assay system is standardized against the WHO standard. The test result will be approximately 20% lower when compared to the equimolar-standardized total PSA (Vivian Mooers). Comparison of serial PSA results should be interpreted with this fact in mind. This test was performed using the Siemens chemiluminescent method. Values obtained from different assay methods cannot be used interchangeably. PSA levels, regardless of value, should not be interpreted as absolute evidence of the presence or absence of disease. Blood BLOOD SPECIMEN / Unknown 03/24/2024 12:12 PM INFRASTRUCTURE SOFTWARE ENGINEER 03/24/2024 12:13 PM INFRASTRUCTURE SOFTWARE ENGINEER Hemal Hayward MD CHEMISTRY Final Re sult [facility] [address] [place] [address], [facility] [address] [place] [address] * (ABNORMAL) BASIC METABOLIC PANEL (03/24/2024 12:12 PM INFRASTRUCTURE SOFTWARE ENGINEER) Pathologist [facility] GLUCOSE 108(H) 65 - 99 mg/dL [facility] Comment: Fasting reference interval For someone without known diabetes, a glucose value between 100 and 125 mg/dL is consistent with prediabetes and should be confirmed with a follow-up test. UREA NITROGEN (BUN) 23 7 - 25 mg/dL [facility] CREATININE 1.32(H) 0.70 - 1.28 mg/dL [facility] EGFR 55(L) > OR = 60 mL/min/1.7 3m2 [facility] BUN/CREATININE RATIO 17 6 - 22 (calc) [facility] SODIUM 140 135 - 146 mmol/L [facility] [facility] POTASSIUM 4.6 3.5 - 5.3 mmol/L [facility] CHLORIDE 101 98 - 110 mmol/L [facility] CARBON DIOXIDE 30 20 - 32 mmol/L [facility] ELECTROLYTE BALANCE 9 7 - 17 mmol/L (calc) [facility] CALCIUM 9.5 8.6 - 10.3 mg/dL [facility] Blood BLOOD SPECIMEN / Unknown 03/24/2024 12:12 PM INFRASTRUCTURE SOFTWARE ENGINEER 03/24/2024 12:13 PM INFRASTRUCTURE SOFTWARE ENGINEER Hemal Hayward MD CHEMISTRY Final Re sult [employer] [address] [place] [address], [facility] [address] [place] [address] * ANTI HCV [16755.2] (01/10/2016 3:13 PM INFRASTRUCTURE SOFTWARE ENGINEER) HEPATITIS C ANTIBODY Non-Reacti ve Non-Reacti ve 01/10/2016 10:04 PM INFRASTRUCTURE SOFTWARE ENGINEER [facility] [employer] [facility] Blood BLOOD SPECIMEN / Unknown Venipuncture / Unknown 01/10/2016 3:13 PM INFRASTRUCTURE SOFTWARE ENGINEER 01/10/2016 3:13 PM INFRASTRUCTURE SOFTWARE ENGINEER Narrative [facility] - 01/10/2016 10:04 PM INFRASTRUCTURE SOFTWARE ENGINEER Antibodies to HCV not detected; does not exclude the possibility of exposure to HCV. Travis Hyde MD SEND OUTS Final Re sult [facility] [employer] LABORATORY-[facility] [address] [place] [address], [place] from Last 3 Months or Most Recently Relevant to Health Maintenance Insurance MEDICARE PART A HB ONLY [place] BLUE MR PB ONLY [employer] [place] [place] BLUE HB ONLY Advance Directives * Full Code (Latest Code Status on File) Date Activated Date Inactivated Comments 06/19/2020 5:20 PM 06/21/2020 2:27 PM Question Answer Comments Code Status Discussion: Not Discussed * Full Code Date Activated Date Inactivated Comments 09/09/2014 4:21 PM 09/12/2014 2:13 PM Question Answer Comments Code Status Discussion: Discussed Care Teams Furniture Mechanic Relationship Specialty Start Date End Date Votel, Hemal Jensen MD [address] [place] [address] PCP - General Family Practice 06/23/22 Sourav Anderson MD [address] [place] [address] Sports Medicine 06/29/12 Jerome Mccartney MD [address] [place] [address] Gastroenterology 06/29/12
--- NOTE | 2024-05-28 01:37 | ED.GENADULT ---
HPI - General Adult General Time Seen by Provider: 01:38 Date Seen: 05/28/24 Chief complaint: Abdominal Pain Stated complaint: intestinal blockage Time Seen by Provider: 05/28/24 01:33 Source: patient, RN notes reviewed and old records reviewed Mode of arrival: ambulatory Limitations: no limitations History of Present Illness HPI narrative: This very pleasant 78-year-old male is coming in with abdominal pain that he believes is recurrent bowel obstruction. Patient had a normal bowel movement Yoel morning, ate normally until he had a bag of popcorn. He started to have stomach discomfort, increasing distension. He notes he is not having any flatus now. He has had increasing pain reminiscent of his prior bowel obstructions. He does have some nausea but no vomiting, no fever. He did take 2 hydrocodone about 2 hours apart, last use around 9:00 p.m. Thursday night. It did help some but the pain is intensifying. His last bowel obstruction was in 2022 where he was hospitalized here. He does have underlying Crohn's disease and has a history of bowel resection as well as surgery in 2014 for resection of adhesions. He has not had any surgery since that time but has had multiple bowel obstructions. Related Data Home Medications ?Medication ?Instructions ?Recorded ?Confirmed duloxetine 20 mg capsule,delayed 60 mg PO DAILY 06/04/22 05/28/24 release finasteride 5 mg tablet 5 mg PO DAILY 06/04/22 05/28/24 gabapentin 300 mg capsule 600 mg PO TID 06/04/22 05/28/24 lisinopril 10 mg tablet 10 mg PO DAILY 06/04/22 05/28/24 tamsulosin 0.4 mg capsule 0.8 mg PO DAILY 06/04/22 05/28/24 oxybutynin chloride 10 mg 10 mg PO DAILY 10/03/23 05/06/24 tablet,extended release 24 hr Allergies Allergy/AdvReac Type Severity Reaction Status Date / Time No Known Drug Allergies Allergy Verified 05/28/24 01:53 Review of Systems Status of ROS: Reports: 6 or more systems reviewed and unremarkable except as noted in History and below [facility] Medical History Elevated lipase ?R74.8 - Abnormal levels of other serum enzymes (ICD-10) Crohn's disease ?K50.90 - Crohn's disease, unspecified, without complications (ICD-10) Lumbar facet arthropathy ?M47.816 - Spondylosis without myelopathy or radiculopathy, lumbar region (ICD-10) Foraminal stenosis of lumbar region ?M48.061 - Spinal stenosis, lumbar region without neurogenic claudication (ICD-10) Spinal stenosis in cervical region ?M48.02 - Spinal stenosis, cervical region (ICD-10) Cervical myelopathy ?G95.9 - Disease of spinal cord, unspecified (ICD-10) Vitamin D deficiency ?E55.9 - Vitamin D deficiency, unspecified (ICD-10) Essential hypertension ?I10 - Essential (primary) hypertension (ICD-10) Supraglottic edema ?J38.4 - Edema of larynx (ICD-10) Stroke ?I63.9 - Cerebral infarction, unspecified (ICD-10) SBO (small bowel obstruction) ?K56.609 - Unspecified intestinal obstruction, unspecified as to partial versus complete obstruction (ICD-10) Neuropathy, peripheral ?G62.9 - Polyneuropathy, unspecified (ICD-10) Neuropathy of lower extremity ?G57.90 - Unspecified mononeuropathy of unspecified lower limb (ICD-10) Kidney stone ?N20.0 - Calculus of kidney (ICD-10) Insomnia ?G47.00 - Insomnia, unspecified (ICD-10) Crohn's disease of jejunum ?K50.00 - Crohn's disease of small intestine without complications (ICD-10) Surgical History History of spinal surgery ?Z98.890 - Other specified postprocedural states (ICD-10) History of exploratory laparotomy ?Z98.890 - Other specified postprocedural states (ICD-10) History of laparoscopic cholecystectomy ?Z90.49 - Acquired absence of other specified parts of digestive tract (ICD-10) History of knee surgery ?Z98.890 - Other specified postprocedural states (ICD-10) History of lithotripsy ?Z98.890 - Other specified postprocedural states (ICD-10) History of bowel resection ?Z90.49 - Acquired absence of other specified parts of digestive tract (ICD-10) History of foot surgery ?Z98.890 - Other specified postprocedural states (ICD-10) History of colonoscopy ?Z98.890 - Other specified postprocedural states (ICD-10) Social History Narrative: Lives with Debi (medical decision maker if needed) [place]. 3 adult children, 9 granddaughters. 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 Occasional cigar, rare ETOH use. Full Code status. Smoking Status: Light tobacco smoker What tobacco products do you use: cigars Do you use any of these nicotine containing products: None Second hand tobacco smoke exposure: No How often do you have a drink containing alcohol: monthly or less Alcohol type: beer How often do you have six or more drinks on one occasion: Never AUDIT-C Alcohol total score: 1 Non-prescribed substance use: denies use Caffeine: Yes (coffee) service: No Exam Const: Vital Signs, click to edit/add: Vital Signs - 24 hr 05/28/24 01:39 05/28/24 01:42 05/28/24 01:51 Temperature 98.5 F Pulse Rate 60 Pulse Rate [Right Pulse Oximeter] 73 Respiratory Rate 18 18 Blood Pressure 107/71 Blood Pressure [Ri ght Upper Arm] 107/71 Pulse Oximetry 95 99 99 Oxygen Delivery Me thod Room Air Oxygen Flow Rate 05/28/24 01:51 05/28/24 01:58 Temperature 98.5 F Pulse Rate 60 Pulse Rate [Right Pulse Oximeter] Respiratory Rate 18 Blood Pressure 105/68 Blood Pressure [Ri ght Upper Arm] Pulse Oximetry 93 93 Oxygen Delivery Me thod Nasal Cannula Oxygen Flow Rate 2 Care is a 78-year-old male seen in exam room 3, he is alert, interactive, no apparent distress but looks like he is having some discomfort. Sclera clear, symmetrical facial function, able speak in complete sentences with normal speech. Lungs are clear, good air entry, no wheezing or crackles, tachypnea, no accessory muscle use. CV regular rate and rhythm, no murmur, normal S1-S2. Abdomen is mildly distended, he has mild diffuse tenderness, do not hear any bowel sounds. Do not appreciate any organomegaly or masses. Skin visualized without rash, patient was ambulatory into the ED of his own accord. Documenting provider has reviewed patient's vital signs: yes Course Course ED Course: Will start an IV, place patient on pulse oximetry as will be giving him Dilaudid for pain management, Zofran for nausea control. Will initiate fluids. Will get appropriate labs including a CBC and lactate. Depending on the findings of these labs, will decide on imaging. May consider flat and upright verses CT abdomen and pelvis. If his lactate her white count are elevated, likely just to do CT imaging on him. Reevaluation(s) Time of Reevaluation #1: 02:53 Reevaluation #1: Have reviewed CT findings with patient. Did discuss the thickening of the stomach. Will cover with 40 mg IV Protonix. Did discuss that he should probably consider getting an outpatient EGD once he is resolved from this. He can discuss this further with the hospitalist. I do recommend hospitalization for bowel rest in supportive cares. He does not appear to have a surgical need at this time but warrants ongoing monitoring for this. Awaiting to talk to the hospitalist, did send a text to the surgeon so that she is aware in the morning. Patient is requesting more pain management at this time, will get subsequent orders in for p.r.n. dosing of Dilaudid. He has required placement of oxygen after his initial dose of dilaudid. Consultations Consultation #1: Have spoken with the night hospitalist Dr. Villasenor. She and I have reviewed his CT findings including the incidental mild wall thickening of the gastric antrum. He has been given 40 mg IV Protonix, have discussed this with he and his , he should consider outpatient EGD when able. We did discuss NG tube placement, reviewed that he has not had any vomiting and he would prefer to not have this in if possible. I think he is stable for observation without NG tube at this time, NPO status and IV fluid support. She agrees to accept this patient. She obviously will contact the surgeon if there is concern for worsening but did let her know that there was a text on her phone that she should hopefully see in the morning. They certainly should consult her in the morning or before if needed. Time: 03:08 Vital Signs Vital signs: Initial Vital Signs Pulse Rate 60 05/28/24 01:39 Respiratory Rate 18 05/28/24 01:39 Blood Pressure 107/71 05/28/24 01:39 Blood Pressure Mean 83 05/28/24 01:39 Pulse Oximetry 95 05/28/24 01:39 Vital Signs Pulse Rate 60 05/28/24 01:39 Respiratory Rate 18 05/28/24 01:39 Blood Pressure 107/71 05/28/24 01:39 Pulse Oximetry 95 05/28/24 01:39 Temperature 98.5 F 05/28/24 01:51 Pulse Rate 73 05/28/24 01:51 Respiratory Rate 18 05/28/24 01:51 Blood Pressure 107/71 05/28/24 01:51 Pulse Oximetry 93 05/28/24 01:58 Oxygen Delivery Method Nasal Cannula 05/28/24 01:58 Oxygen Flow Rate 2 05/28/24 01:58 Medications Administered Medications: Generic Name Dose Route Start Last Admin Trade Name Freq PRN Reason Stop Dose Admin Hydromorphone HCl 0.2 - 0.5 mg 05/28/24 02:56 05/28/24 03:11 Hydromorphone 0.5 Mg/0.5 Ml Inj IVP 0.5 mg Q1H PRN Administration Pain Sodium Chloride 1,000 mls @ 500 mls/hr 05/28/24 01:43 05/28/24 01:48 0.9 % Sodium Chloride 1000 Ml IV 05/28/24 03:42 500 mls/hr .Q2H DARLINE Administration Discontinued Medications Generic Name Dose Route Start Last Admin Trade Name Freq PRN Reason Stop Dose Admin Hydromorphone HCl 0.5 mg 05/28/24 01:42 05/28/24 01:45 Hydromorphone 0.5 Mg/0.5 Ml Inj IVP 05/28/24 01:43 0.5 mg ONCE ONE Administration Ondansetron HCl 4 mg 05/28/24 01:42 05/28/24 01:46 Ondansetron 2 Mg/Ml Inj IVP 05/28/24 01:43 4 mg ONCE ONE Administration Pantoprazole Sodium 40 mg 05/28/24 02:46 05/28/24 02:50 Pantoprazole Sodium 40 Mg Inj IVP 05/28/24 02:47 40 mg ONCE ONE Administration Medical Decision Making Lab Data Lab results reviewed: Yes I reviewed the patient's lab results Labs: Lab Results 05/28/24 Range/Units 01:45 WBC 16.59 H (4.50-11.00) K/uL RBC 4.75 (4.30-5.90) m/uL Hgb 16.0 (13.5-17.5) gm/dL Hct 46.1 (37.0-53.0) % MCV 97 (80-100) fL MCH 34 (26-34) pg MCHC 35 (32-36) gm/dL RDW Coeff of Enrique 13.0 (11.5-15.5) % Plt Count 280 (140-440) K/uL Neut % (Auto) 81.1 H (42.0-72.0) % Lymph % (Auto) 10.2 L (20-44) % Converse % (Auto) 7.9 (0.0-11.0) % Eos % (Auto) 0.5 (0.0-7.0) % Baso % (Auto) 0.2 (0.0-3.0) % Neut # (Auto) 13.50 H (1.7-7.0) K/uL Lymph # (Auto) 1.70 (0.90-2.90) K/uL Converse # (Auto) 1.30 H (0.00-0.90) K/UL Eos # (Auto) 0.10 (0.00-0.50) K/uL Baso # (Auto) 0.00 (0.00-0.30) K/uL Abs Immat Gran (auto) 0.00 (0.00-0.30) K/uL Imm/Tot Granulo (auto) 0.1 % Sodium 136 (135-149) mmol/L Potassium 4.6 (3.6-5.1) mmol/L Chloride 99 (96-114) mmol/L Carbon Dioxide 24 (20-32) mmol/L Anion Gap 13 (7-15) mEq/L BUN 21 (7-30) mg/dL Creatinine 1.4 (0.5-1.5) mg/dL Estimated Creat Clear 43.49 Estimated GFR 51 ml/min Glucose 158 H (60-115) mg/dL Lactate 2.5 H (0.5-1.9) mmol/L Calcium 10.0 (8.4-10.6) mg/dL Total Bilirubin 1.5 (0.1-1.5) mg/dL Direct Bilirubin 0.4 (0.0-0.5) mg/dL AST 45 H (12-35) U/L ALT 35 (4-50) U/L Alkaline Phosphatase 95 (40-150) U/L C-Reactive Protein < 0.5 L (0.5-1.0) mg/dL Total Protein 8.0 (6.0-8.3) g/dL Albumin 5.3 H (3.3-5.0) g/dL Imaging Data CT scan - abdomen: Attestation: I have reviewed the pertinent imaging results. Radiologist's impression: Patient: REDDY REEDER Facility:?[facility] Patient ID:?[id number] Site Patient ID:?[id number]. Site :?[id number] Study:?CT-Abdomen/Pelvis W/ISOVUE 370 86CC-05/28/2024 2:38:36 AM Ordering Physician:Seble Azar Final Report: INDICATION: Abdominal pain, abdominal distended and discomfort TECHNIQUE: CT Abdomen and pelvis with i.v. contrast. Coronal and sagittal reformats were obtained. CONTRAST: 86 mL Isovue 370 COMPARISON: 06/04/2022 FINDINGS: Lower chest: Linear scarring is seen in the left lower lobe. Liver: Multiple liver cysts are present, measuring up to 5.5 cm. Spleen: Unremarkable. Pancreas: Unremarkable. Gallbladder: Previous cholecystectomy noted with no significant intra- or extrahepatic biliary ductal dilatation seen. Kidney: There is a stone in the right renal lower pole measuring 11 mm. There is a cyst in the right renal posterior midzone measuring 1.2 cm. Adrenal: Unremarkable. Bowel: Mild wall thickening of the gastric antrum is present. Fluid-filled small bowel loops are present measuring up to 4.5 cm in diameter with a patulous fluid-filled small-bowel anastomosis in the right lower quadrant. The patient is status post ileocecectomy. Previous appendectomy noted with no significant appendiceal stump identified. Vascular: Unremarkable. Lymph: Unremarkable. Peritoneum: Unremarkable. No pneumoperitoneum is seen. No significant ascites is noted. Pelvis: Mild prostatic enlargement is noted. Soft tissue: Unremarkable. Bone: Unremarkable for age. IMPRESSIONS: 1. Fluid-filled small bowel loops are present measuring up to 4.5 cm in diameter with a patulous fluid-filled small-bowel anastomosis in the right lower quadrant. The appearance is similar to prior examination. 2. Mild wall thickening of the gastric antrum is present. This may be due to gastritis or peptic ulcer disease and confirmation with barium GI series or endoscopy is recommended. Dictated by Israel Stoner MD @ 05/28/2024 2:45:17 AM Please note that all CT scans at this facility use dose modulation, iterative reconstruction, and/or weight-based dosing when appropriate to reduce radiation dose to as low as reasonably achievable. Dictated by: Israel Stoner MD @ 05/28/2024 02:45:27 (Electronic Signature) Discharge Plan Discharge Clinical Impression: SBO (small bowel obstruction) Crohn's disease Qualifiers: Gastrointestinal tract location: unspecified location Digestive disease complication type: unspecified complication Qualified Code(s): K50.919 - Crohn's disease, unspecified, with unspecified complications Patient Disposition: Admitted As Observation
[2024-05-28] MEDS: HYDROmorphone 0.5 mg/0.5 ml inj IVP ×3 (01:45→04:21)
[2024-05-28] MEDS: ONDANSETRON 2 MG/ML inj 4 MG IVP (01:46)
[2024-05-28] MEDS: 0.9 % SODIUM CHLORIDE 1000 ml 1,000 ML 500 ML IV (01:48)
[2024-05-28 01:51] LABS: Lactate* 2.5 mmol/L (0.5-1.9)
[2024-05-28 01:53] LABS: Basophils Percent Auto 0.2 % (0.0-3.0); Eosinophils Percent Auto 0.5 % (0.0-7.0); Hematocrit* 46.1 % (37.0-53.0); Immature Granulocytes Pct Auto 0.1 %; Lymphocytes Percent Auto 10.2 % (20-44); Mean Corpuscular HGB Conc 35 gm/dL (32-36); Mean Corpuscular Hemoglobin 34 pg (26-34); Mean Corpuscular Volume 97 fL (80-100); Monocytes Percent Auto 7.9 % (0.0-11.0); Neutrophils Percent Auto 81.1 % (42.0-72.0); Platelet Count* 280 K/uL (140-440); Red Blood Count* 4.75 m/uL (4.30-5.90); White Blood Count* 16.59 K/uL (4.50-11.00)
[2024-05-28 01:57] LABS: Slide Review Reflex No
--- NOTE | 2024-05-28 01:59 | CRLHL7_ITS ---
For Patients: As a result of the Century Cures Act, medical imaging exams and procedure reports are released immediately into your electronic medical record. You may view this report before your referring provider. If you have questions, please contact your health care provider. INDICATION: Abdominal pain, abdominal distended and discomfort TECHNIQUE: CT Abdomen and pelvis with i.v. contrast. Coronal and sagittal reformats were obtained. CONTRAST: 86 mL Isovue 370 COMPARISON: 06/04/2022 FINDINGS: Lower chest: Linear scarring is seen in the left lower lobe. Liver: Multiple liver cysts are present, measuring up to 5.5 cm. Spleen: Unremarkable. Pancreas: Unremarkable. Gallbladder: Previous cholecystectomy noted with no significant intra- or extrahepatic biliary ductal dilatation seen. Kidney: There is a stone in the right renal lower pole measuring 11 mm. There is a cyst in the right renal posterior midzone measuring 1.2 cm. Adrenal: Unremarkable. Bowel: Mild wall thickening of the gastric antrum is present. Fluid-filled small bowel loops are present measuring up to 4.5 cm in diameter with a patulous fluid-filled small-bowel anastomosis in the right lower quadrant. The patient is status post ileocecectomy. Previous appendectomy noted with no significant appendiceal stump identified. Vascular: Unremarkable. Lymph: Unremarkable. Peritoneum: Unremarkable. No pneumoperitoneum is seen. No significant ascites is noted. Pelvis: Mild prostatic enlargement is noted. Soft tissue: Unremarkable. Bone: Unremarkable for age. IMPRESSIONS: 1. Fluid-filled small bowel loops are present measuring up to 4.5 cm in diameter with a patulous fluid-filled small-bowel anastomosis in the right lower quadrant. The appearance is similar to prior examination. 2. Mild wall thickening of the gastric antrum is present. This may be due to gastritis or peptic ulcer disease and confirmation with barium GI series or endoscopy is recommended. Dictated by Israel Stoner MD @ 05/28/2024 2:45:17 AM Please note that all CT scans at this facility use dose modulation, iterative reconstruction, and/or weight-based dosing when appropriate to reduce radiation dose to as low as reasonably achievable. Dictated by: Israel Stoner MD @ 05/28/2024 02:45:27 (Electronically Signed)
[2024-05-28 02:05] LABS: Albumin* 5.3 g/dL (3.3-5.0); Chloride* 99 mmol/L (96-114); Sodium* 136 mmol/L (135-149)
[2024-05-28 02:06] LABS: Potassium* 4.6 mmol/L (3.6-5.1)
[2024-05-28 02:08] LABS: Alanine Aminotransferase* 35 U/L (4-50); Anion Gap 13 mEq/L (7-15); Aspartate Amino Transferase* 45 U/L (12-35); Blood Urea Nitrogen* 21 mg/dL (7-30); Carbon Dioxide* 24 mmol/L (20-32); Creatinine* 1.4 mg/dL (0.5-1.5); Est. Creatinine Clearance* 43.49; Estimated Glomerular Filt Rate 51 ml/min
[2024-05-28 02:09] LABS: Alkaline Phosphatase* 95 U/L (40-150); Bilirubin Direct* 0.4 mg/dL (0.0-0.5); Bilirubin Total* 1.5 mg/dL (0.1-1.5); Glucose* 158 mg/dL (60-115)
[2024-05-28 02:15] LABS: C Reactive Protein* < 0.5 mg/dL (0.5-1.0)
[2024-05-28] MEDS: PANTOPRAZOLE SODIUM 40 MG INJ IVP (02:50)
--- NOTE | 2024-05-28 03:36 | W.PM.THH&P_ITS ---
Telehealth- H&P: HPI History of Present Illness Date Seen: 05/28/24 Chief complaint: intestinal blockage Narrative: Osman Murray is seen as an Interactive Telehealth visit. Osman Murray is a 78 year old male With past medical history significant for Crohn's disease, HTN, CVA, small bowel obstruction, neuropathy, insomnia presented emergency department with complaints of abdominal pain. Patient reports he started having abdominal pain that started around 5 PM yesterday after he ate popcorn. He said it was initially cramp on the right side of the stomach and then progressed to the entire stomach. He says he took muscle relaxer and also took hydrocodone x 2 without significant relief. He says the by midnight around 1230 he decided come in for further evaluation. He does endorse feeling nauseous however did not have any episode of vomiting. He denies any fever or chills. He has had no cough. Last BM was thursday morning. He denies any history of diabetes heart issue or smoking. Workup in the emergency department showed leukocytosis with white count of 16.5, hemoglobin 16.0, hematocrit 46.1, platelets 280. BMP was unremarkable except creatinine was 1.4 elevated from his baseline 1.12 years ago. Lactate was 2.5. Glucose 158. CT abdomen pelvis showed fluid-filled small bowel loops are present measuring up to 4.5 cm in diameter with a patulous fluid-filled small bowel anastomosis in the right lower quadrant. The appearance is similar to prior exam. Mild wall thickening of the gastric antrum is present. This may be due to gastritis or peptic ulcer disease and confirmation with barium GI series or endoscopy was recommended. ER provider reports they have not discussed the case with general surgery officially however have texted them as a heads up. Patient has not had any episodes of vomiting. NG tube was held off. Review of Systems Narrative: Complete ROS was performed, pertinent positives and negatives per HPI. [facility] Medical History Elevated lipase ?R74.8 - Abnormal levels of other serum enzymes (ICD-10) Crohn's disease ?K50.90 - Crohn's disease, unspecified, without complications (ICD-10) Lumbar facet arthropathy ?M47.816 - Spondylosis without myelopathy or radiculopathy, lumbar region (ICD-10) Foraminal stenosis of lumbar region ?M48.061 - Spinal stenosis, lumbar region without neurogenic claudication (ICD-10) Spinal stenosis in cervical region ?M48.02 - Spinal stenosis, cervical region (ICD-10) Cervical myelopathy ?G95.9 - Disease of spinal cord, unspecified (ICD-10) Vitamin D deficiency ?E55.9 - Vitamin D deficiency, unspecified (ICD-10) Essential hypertension ?I10 - Essential (primary) hypertension (ICD-10) Supraglottic edema ?J38.4 - Edema of larynx (ICD-10) Stroke ?I63.9 - Cerebral infarction, unspecified (ICD-10) SBO (small bowel obstruction) ?K56.609 - Unspecified intestinal obstruction, unspecified as to partial versus complete obstruction (ICD-10) Neuropathy, peripheral ?G62.9 - Polyneuropathy, unspecified (ICD-10) Neuropathy of lower extremity ?G57.90 - Unspecified mononeuropathy of unspecified lower limb (ICD-10) Kidney stone ?N20.0 - Calculus of kidney (ICD-10) Insomnia ?G47.00 - Insomnia, unspecified (ICD-10) Crohn's disease of jejunum ?K50.00 - Crohn's disease of small intestine without complications (ICD-10) Surgical History History of spinal surgery ?Z98.890 - Other specified postprocedural states (ICD-10) History of exploratory laparotomy ?Z98.890 - Other specified postprocedural states (ICD-10) History of laparoscopic cholecystectomy ?Z90.49 - Acquired absence of other specified parts of digestive tract (ICD- 10) History of knee surgery ?Z98.890 - Other specified postprocedural states (ICD-10) History of lithotripsy ?Z98.890 - Other specified postprocedural states (ICD-10) History of bowel resection ?Z90.49 - Acquired absence of other specified parts of digestive tract (ICD- 10) History of foot surgery ?Z98.890 - Other specified postprocedural states (ICD-10) History of colonoscopy ?Z98.890 - Other specified postprocedural states (ICD-10) Social History Narrative: Lives with Debi (medical decision maker if needed) [place]. 3 adult children, 9 granddaughters. Retired (used car sales), mows at golf course now. Occasional cigar, rare ETOH use. Full Code status. What is your current living situation?: I presently have a place to live Problems where you live: no known problems Problems where you live details: NA In the past 12 months, utilities in danger of being shut off: no In past 12 months, lack of transportation kept you from medical appts, meetings, work, or getting things needed for daily living: no In the past 12 mos, have been you worried that your food would run out before you had money to buy more?: never true In the past 12 mos, the food you bought just didn't last and you didn't have money to buy more?: never true Highest level of school completed/degree received: Associate degree: academic program Smoking Status: Light tobacco smoker What tobacco products do you use: cigars Do you use any of these nicotine containing products: None Second hand tobacco smoke exposure: No How often do you have a drink containing alcohol: monthly or less Alcohol type: beer How often do you have six or more drinks on one occasion: Never AUDIT-C Alcohol total score: 1 Non-prescribed substance use: denies use Caffeine: Yes (coffee) How often does anyone, including family, friends and others, physically hurt you : never How often does anyone, including family, friends and others, insult or talk down to you: never How often does anyone, including family, friends and others, threaten you with harm: never How often does anyone, including family, friends and others, scream or curse at you: never service: Yes Meds Home Medications and Allergies Home Medications ?Medication ?Instructions ?Recorded ?Confirmed ?Type duloxetine 20 mg capsule,delayed 60 mg PO DAILY 06/04/22 05/28/24 History release finasteride 5 mg tablet 5 mg PO DAILY 06/04/22 05/28/24 History gabapentin 300 mg capsule 600 mg PO TID 06/04/22 05/28/24 History lisinopril 10 mg tablet 10 mg PO DAILY 06/04/22 05/28/24 History tamsulosin 0.4 mg capsule 0.8 mg PO DAILY 06/04/22 05/28/24 History oxybutynin chloride 10 mg 10 mg PO DAILY 10/03/23 05/06/24 History tablet,extended release 24 hr Allergies Allergy/AdvReac Type Severity Reaction Status Date / Time No Known Drug Allergies Allergy Verified 05/28/24 01:53 Exam Narrative Exam Narrative: Physical Exam GENERAL: ?vital signs reviewed, well developed and nourished, in no distress HEENT: pupils are equal round and reactive to light, NECK: Supple HEART: Regular rate and rhythm without any rubs, murmurs, or gallops. LUNGS: Clear to auscultation bilaterally with good air movement throughout ABDOMEN: Hypoactive bowel sounds, no tenderness on palpation by nursing staff exam. mild distention. EXTREMITIES: no focal deficits SKIN:? Observed warm and dry with color normal Const Vital Signs, click to edit/add: Vital Signs - 24 hr 05/28/24 01:39 05/28/24 01:42 05/28/24 01:51 Temperature 98.5 F Pulse Rate 60 Pulse Rate [Right Pulse Oximeter] 73 Respiratory Rate 18 18 Blood Pressure 107/71 Blood Pressure [Right Upper Arm] 107/71 Pulse Oximetry 95 99 99 Oxygen Delivery Method Room Air Oxygen Flow Rate 05/28/24 01:51 05/28/24 01:58 05/28/24 03:20 Temperature 98.5 F 98.5 F Pulse Rate 60 Pulse Rate [Right Pulse Oximeter] 79 Respiratory Rate 18 18 Blood Pressure 105/68 Blood Pressure [Right Upper Arm] 105/68 Pulse Oximetry 93 93 93 Oxygen Delivery Method Nasal Cannula Nasal Cannula Oxygen Flow Rate 2 2 05/28/24 03:21 Temperature 98.5 F Pulse Rate Pulse Rate [Right Pulse Oximeter] 79 Respiratory Rate 18 Blood Pressure Blood Pressure [Right Upper Arm] 105/68 Pulse Oximetry Oxygen Delivery Method Oxygen Flow Rate Hospitalist - H&P: Result Labs Labs: Short CBC 05/28/24 Range/Units 01:45 WBC 16.59 H (4.50-11.00) K/uL Hgb 16.0 (13.5-17.5) gm/dL Hct 46.1 (37.0-53.0) % Plt Count 280 (140-440) K/uL [facility] 05/28/24 01:45 Sodium 136 Potassium 4.6 Chloride 99 Carbon Dioxide 24 BUN 21 Creatinine 1.4 Glucose 158 H Calcium 10.0 Liver Function 05/28/24 Range/Units 01:45 Total Bilirubin 1.5 (0.1-1.5) mg/dL Direct Bilirubin 0.4 (0.0-0.5) mg/dL AST 45 H (12-35) U/L ALT 35 (4-50) U/L Alkaline Phosphatase 95 (40-150) U/L Albumin 5.3 H (3.3-5.0) g/dL Assessment and Plan Assessment and plan (1) Crohn's disease: Status: Acute (2) SBO (small bowel obstruction): Status: Acute Plan Pt with previous history of Crohn's disease, SBO presenting to ED with abdominal pain. # SBO # h/o Crohn's disease # prev h/o SBO, abdominal surgery - pt is reporting pain has improved. - cont with NPO except ice chips and meds - cont gentle hydration - cont pain control - pt is not complaining of any vomiting. hold off NG tube for now - General surgery consult in am. # Gastric Thickening - this was seen on CT scan - cont with protonix - pt will likely benefit from EGD as outpatient # HTN - review meds once verified # DVT proph - SQH Telehealth: Statement Statement Telehealth Visit: Today's History and Physical is provided via interactive telehealth by Shirin Villasenor MD.? Patient is located at [facility].? Provider is located at [facility].? Nursing staff assisted with the patient's exam. The visit being done today meets criteria for a telehealth visit and the patient or patient?s parent/guardian is aware the visit is a telehealth visit. Camera Start Time: 03:36 Camera End Time: 03:47
[2024-05-28] MEDS: 0.9 % SODIUM CHLORIDE 1000 ml 1,000 ML 75 ML IV (05:44)
[2024-05-28 06:24] LABS: Lactate Sepsis w/Reflex* 0.9 mmol/L (0.5-1.9)
[2024-05-28 06:29] LABS: Basophils Absolute Auto 0.02 K/uL (0.00-0.30); Basophils Percent Auto 0.2 % (0.0-3.0); Eosinophils Absolute Auto 0.04 K/uL (0.00-0.50); Eosinophils Percent Auto 0.4 % (0.0-7.0); Hematocrit* 39.6 % (37.0-53.0); Hemoglobin* 13.7 gm/dL (13.5-17.5); Immature Granulocytes Abs Auto 0.01 K/uL (0.00-0.30); Immature Granulocytes Pct Auto 0.1 %; Lymphocytes Percent Auto 6.5 % (20-44); Mean Corpuscular HGB Conc 35 gm/dL (32-36); Mean Corpuscular Hemoglobin 34 pg (26-34); Mean Corpuscular Volume 98 fL (80-100); Monocytes Percent Auto 6.2 % (0.0-11.0); Neutrophils Percent Auto 86.6 % (42.0-72.0); Platelet Count* 204 K/uL (140-440); Red Blood Count* 4.03 m/uL (4.30-5.90); Slide Review Reflex No; White Blood Count* 10.97 K/uL (4.50-11.00)
[2024-05-28 06:44] LABS: Chloride* 101 mmol/L (96-114); Sodium* 135 mmol/L (135-149)
[2024-05-28 06:45] LABS: Potassium* 5.5 mmol/L (3.6-5.1)
[2024-05-28 06:48] LABS: Anion Gap 6 mEq/L (7-15); Blood Urea Nitrogen* 22 mg/dL (7-30); Calcium* 8.5 mg/dL (8.4-10.6); Carbon Dioxide* 28 mmol/L (20-32); Creatinine* 1.3 mg/dL (0.5-1.5); Est. Creatinine Clearance* 46.83; Estimated Glomerular Filt Rate 56 ml/min; Glucose* 119 mg/dL (60-115)
[2024-05-28] MEDS: HEPARIN 5,000 UNIT/0.5 ML INJ 5000 UNIT SUBCUT (12:41)
--- NOTE | 2024-05-28 15:08 | P.DS_ITS ---
DS: Providers Provider Date Seen: 05/28/24 Date of admission: 05/28/24 03:16 Primary care physician: Hemal Hayward MD Admitting Clinician: Shirin Villasenor MD Consults: 05/28/24 03:51 Consult to Physician [CONS] Routine Comment: Consulting Provider: General Surgery, [facility] Has provider been notified: No Attending Physician on discharge: Kadeem Valdes MD Date of Discharge: 05/28/24 DS: Diagnosis Discharge Diagnosis (1) Partial small bowel obstruction: Status: Acute (2) SBO (small bowel obstruction): Status: Acute Problem details: - history of recurrent small bowel obstruction (3) Crohn's disease: Status: Acute DS: Summary Hospital Course Hospital Course: Admission history of present illness: ?78 year old male With past medical history significant for Crohn's disease, HTN, CVA, small bowel obstruction, neuropathy, insomnia presented emergency department with complaints of abdominal pain. Patient reports he started having abdominal pain that started around 5 PM yesterday after he ate popcorn. He said it was initially cramp on the right side of the stomach and then progressed to the entire stomach. He says he took muscle relaxer and also took hydrocodone x 2 without significant relief. He says the by midnight around 1230 he decided come in for further evaluation. He does endorse feeling nauseous however did not have any episode of vomiting. He denies any fever or chills. He has had no cough. Last BM was thursday morning. He denies any history of diabetes heart issue or smoking. Workup in the emergency department showed leukocytosis with white count of 16.5, hemoglobin 16.0, hematocrit 46.1, platelets 280. BMP was unremarkable except creatinine was 1.4 elevated from his baseline 1.12 years ago. Lactate was 2.5. Glucose 158. ?CT abdomen pelvis showed fluid-filled small bowel loops are present measuring up to 4.5 cm in diameter with a patulous fluid-filled small bowel anastomosis in the right lower quadrant. The appearance is similar to prior exam. Mild wall thickening of the gastric antrum is present. This may be due to gastritis or peptic ulcer disease and confirmation with barium GI series or endoscopy was recommended. ER provider reports they have not discussed the case with general surgery officially however have texted them as a heads up. Patient has not had any episodes of vomiting. NG tube was held off.? Status at Discharge Functional status at discharge: independent ambulation Time Spent with Patient Time attestation: Total time spent providing and/or coordinating discharge services: Time spent: Greater than 30 minutes Exam Narrative: Exam Narrative: Examined patient in his hospital room. Appears comfortable no acute distress. Tolerating clear liquid diet in the morning and then full liquid diet in the afternoon with soft foods. Lungs are clear to auscultation. Heart tones with regular rhythm. Abdomen with active bowel sounds, soft. Mild bloating. No rebound or guarding. Independent in transfer, station, gait. Const: Vital Signs, click to edit/add: Vital Signs - 24 hr 05/28/24 01:39 05/28/24 01:42 05/28/24 01:51 Temperature 98.5 F Pulse Rate 60 Pulse Rate [Pulse Oximeter] Pulse Rate [Right Pulse Oximeter] 73 Respiratory Rate 18 18 Blood Pressure 107/71 Blood Pressure [Le ft Arm] Blood Pressure [Ri ght Upper Arm] 107/71 Pulse Oximetry 95 99 99 Oxygen Delivery Me thod Room Air Oxygen Flow Rate 05/28/24 01:51 05/28/24 01:58 05/28/24 03:20 Temperature 98.5 F 98.5 F Pulse Rate 60 Pulse Rate [Pulse Oximeter] Pulse Rate [Right Pulse Oximeter] 79 Respiratory Rate 18 18 Blood Pressure 105/68 Blood Pressure [Le ft Arm] Blood Pressure [Ri ght Upper Arm] 105/68 Pulse Oximetry 93 93 93 Oxygen Delivery Me thod Nasal Cannula Nasal Cannula Oxygen Flow Rate 2 2 05/28/24 03:21 05/28/24 03:58 05/28/24 12:32 Temperature 98.5 F 97.8 F 98.1 F Pulse Rate Pulse Rate [Pulse Oximeter] 60 58 L Pulse Rate [Right Pulse Oximeter] 79 Respiratory Rate 18 16 16 Blood Pressure Blood Pressure [Le ft Arm] 118/69 109/63 Blood Pressure [Ri ght Upper Arm] 105/68 Pulse Oximetry 98 94 Oxygen Delivery Me thod Nasal Cannula Room Air Oxygen Flow Rate 2 DS: Data Data Completed and Pending Labs on day of discharge: Labs from last 24 hours 05/28/24 05/28/24 06:11 01:45 WBC 10.97 16.59 H RBC 4.03 L 4.75 Hgb 13.7 16.0 Hct 39.6 46.1 MCV 98 97 MCH 34 34 MCHC 35 35 RDW Coeff of Enrique 13.0 13.0 Plt Count 204 280 Neut % (Auto) 86.6 H 81.1 H Lymph % (Auto) 6.5 L 10.2 L [place] % (Auto) 6.2 7.9 Eos % (Auto) 0.4 0.5 Baso % (Auto) 0.2 0.2 Neut # (Auto) 9.50 H 13.50 H Lymph # (Auto) 0.70 L 1.70 [place] # (Auto) 0.70 1.30 H Eos # (Auto) 0.04 0.10 Baso # (Auto) 0.02 0.00 Abs Immat Gran (auto) 0.01 0.00 Imm/Tot Granulo (auto) 0.1 0.1 Sodium 135 136 Potassium 5.5 H 4.6 Chloride 101 99 Carbon Dioxide 28 24 Anion Gap 6 L 13 BUN 22 21 Creatinine 1.3 1.4 Estimated Creat Clear 46.83 43.49 Estimated GFR 56 51 Glucose 119 H 158 H Lactate 0.9 2.5 H Calcium 8.5 10.0 Total Bilirubin 1.5 Direct Bilirubin 0.4 AST 45 H ALT 35 Alkaline Phosphatase 95 C-Reactive Protein < 0.5 L Total Protein 8.0 Albumin [address] scan of abdomen and pelvis: Attestation: I have reviewed the pertinent imaging results. Radiologist's impression: FINDINGS: Lower chest: Linear scarring is seen in the left lower lobe. Liver: Multiple liver cysts are present, measuring up to 5.5 cm. Spleen: Unremarkable. Pancreas: Unremarkable. Gallbladder: Previous cholecystectomy noted with no significant intra- or extrahepatic biliary ductal dilatation seen. Kidney: There is a stone in the right renal lower pole measuring 11 mm. There is a cyst in the right renal posterior midzone measuring 1.2 cm. Adrenal: Unremarkable. Bowel: Mild wall thickening of the gastric antrum is present. Fluid-filled small bowel loops are present measuring up to 4.5 cm in diameter with a patulous fluid-filled small-bowel anastomosis in the right lower quadrant. The patient is status post ileocecectomy. Previous appendectomy noted with no significant appendiceal stump identified. Vascular: Unremarkable. Lymph: Unremarkable. Peritoneum: Unremarkable. No pneumoperitoneum is seen. No significant ascites is noted. Pelvis: Mild prostatic enlargement is noted. Soft tissue: Unremarkable. Bone: Unremarkable for age. IMPRESSIONS: 1. Fluid-filled small bowel loops are present measuring up to 4.5 cm in diameter with a patulous fluid-filled small-bowel anastomosis in the right lower quadrant. The appearance is similar to prior examination. 2. Mild wall thickening of the gastric antrum is present. This may be due to gastritis or peptic ulcer disease and confirmation with barium GI series or endoscopy is recommended. Discharge Plan Discharge Disposition: Home, Self-Care Date of Admission: 05/28/24 03:16 Attending Provider on Discharge: Kadeem Valdes Consulting Providers: Valentine Bone; Keo Reyes; Shana Cartagena Primary Care Provider: Hemal Hayward Condition: Improved Anticipated Discharge Date/Time: 05/28/24 15:30 Discharge Medications: New ondansetron 4 mg tablet,disintegrating 4 mg PO Q6H PRN (Reason: nausea and vomiting) Qty: 10 0RF oxycodone 5 mg tablet 5 mg PO Q6H PRN (Reason: pain) Qty: 10 0RF Continued alpha lipoic acid 200 mg tablet 200 mg PO DAILY cholestyramine (with sugar) 4 gram powder 1 ea PO DAILY cyanocobalamin (vitamin B-12) 5,000 mcg tablet, sublingual 5,000 mcg PO DAILY multivitamin Tablet 1 tab PO DAILY acetaminophen [8 Hour Pain Reliever] 650 mg tablet extended release 650 mg PO Q8H PRN cholecalciferol (vitamin D3) 125 mcg (5,000 unit) capsule 125 mcg PO DAILY omega 2-txj-fsi-fish oil [Fish Oil] 1,000 (120-180) mg capsule 1 cap PO DAILY duloxetine 20 mg capsule,delayed release(DR/EC) 40 mg PO HS gabapentin 300 mg capsule 600 mg PO TID lisinopril 10 mg tablet 10 mg PO DAILY tamsulosin 0.4 mg capsule 0.8 mg PO DAILY oxybutynin chloride 10 mg tablet extended release 24hr 10 mg PO DAILY Discharge Orders: Discharge Order (Routine); Ordered 05/28/24 Ordered By: Kadeem Valdes Patient Education: Oxycodone, Rapid Release (By mouth), Ondansetron (By mouth), Low Fiber Diet (DC), Liquids and Hydration for Athletes (DC), Bowel Obstruction (DC) Additional Instructions: 1. Continue to work with your primary healthcare interpreter for your healthcare needs 2. Consider general surgery consultation regarding recurrent bowel obstructions 3. Consider micro photographer/community health outreach worker consultation for adequate nutrition and lower risk of recurrent small bowel obstruction, including adequate hydration and fiber 4. Return to clinic or hospital as warranted Activity Level: No Restrictions and Activity as Tolerated Activity Detail: Daily activity is extremely important for you to lower your risk of recurrent bowel obstruction. Discharge Diet: Low Fiber Diet Detail: full liquids to soft diet over next 5-10 days, then gradually normalize your diet thereafter. Maintain adequate hydration at all times to lower your risk of recurrent bowel obstruction. Follow Up Appointments: Hemal Hayward MD [Primary Care Provider] - Forms: [employer] Info Instructions
--- NOTE | 2024-05-28 15:23 | PC.NURSE ---
Discharge: Patient discharged at 1500. VSS. tolerating full/soft diet. A/O and ambulating indep in hallway and room. Patient denies N/V/Pain and SOB. Patient on RA. IV removed intact. Patient signed belongings sheet and discharge instructions.
== END 2024-05-28 15:00 | disposition home or self-care (01) ==
LOC: ED 03:09 → MEDSURG 03:16
PROVIDERS: Admitting Provider Internal Medicine; Emergency Provider Family Medicine; PCP Family Medicine; Visit Provider Internal Medicine
DX: K56.600 Partial intestinal obstruction, unspecified as to cause (principal); K50.919 Crohn's disease, unspecified, with unspecified complications; D72.829 Elevated white blood cell count, unspecified; K56.609 Unspecified intestinal obstruction, unspecified as to partial versus complete obstruction; I10 Essential (primary) hypertension; R11.0 Nausea; Z72.0 Tobacco use; Z86.73 Personal history of transient ischemic attack (TIA), and cerebral infarction without residual deficits; Z90.49 Acquired absence of other specified parts of digestive tract
CPT/HCPCS: 36415; 74177; 80048; 80053; 82248; 83605; 85025; 86140; 94761; 96361; 96372; 96374; 96375; 96376; 99284; 99285; G0378; J1171; J1644; J2405; J2470; J7030; Q9967